=== PATIENT | female | born 1950 | race Asian ===

== ENCOUNTER 2016-05-08 09:37 | Emergency (ER) | payer MEDICARE, OTHER ==
[~2016-05-08] VITALS: Ht 157.5 cm; Wt 67.1 kg
[~2016-05-08 09:37] MED LIST: DOCU-144 PO; FOLI-49 PO; ISON300T72 PO; LANT3I SC; LEVO250T35 PO; MAGN400T27 PO; MULT1TAB13 PO; NOVO3I SC; PRED5 PO; PYRI50TA80 PO; TACR1CAP PO; TRAM50TA2 PO; VALC450 PO
[2016-05-08 09:47] VITALS: Ht 157.5 cm; Wt 67.1 kg
[2016-05-08] MEDS ORDERED: GUAI-637 PO (11:55)
[2016-05-08] MEDS ORDERED: SODI126M NASAL (11:55)
--- NOTE | 2016-05-08 16:00 | ERD ---
ER Documentation Chief Complaint Date/Time DATE: 05/08/16 TIME: 15:57 Chief Complaint flu today HPI Well-appearing 65-year-old female complaining of cough and runny nose since this morning. Patient stated the cough is slightly productive, with clear sputum occasionally with small streak of blood. She also has occasional bloody nose. Denies fever or chills. Denies shortness of breath. Denies generalized weakness. ROS All systems reviewed and are negative except as per history of present illness. Medications Home Meds Active Scripts Guaifenesin* (Robitussin*) 100 Mg/5 Ml Syrup, 200 MG PO Q6H Y for COUGH, #120 ML Prov:CHETAN SRIVASTAVA. PORCELAIN TECHNICIAN 05/08/16 Sodium Chloride (Saline Nasal Mist) 126 Ml Mist, 2 SPRAY NASAL Q2H Y for NASAL CONGESTION, #1 BOTTLE Prov:CHETAN SRIVASTAVA. PORCELAIN TECHNICIAN 05/08/16 Levofloxacin* (Levaquin*) 250 Mg Tablet, 250 MG PO DAILY for 7 Days, TAB Prov:ANA CRISTINA LIVE PORCELAIN TECHNICIAN 06/20/14 Reported Medications Insulin Glargine* (Lantus*) 100 Unit/Ml Soln, 5 UNIT SC HS, EA 06/19/14 Insulin Aspart* (Novolog Insulin Pen*) 100 Unit/Ml Soln, 0 SC .SLIDING SCALE AC , EA 06/19/14 Tramadol HCl (Tramadol HCl) 50 Mg Tab, 50 MG PO Q6H Y for PAIN, TAB 06/19/14 Docusate Sodium* (Colace*) 100 Mg Capsule, 100 MG PO BID, CAP 06/19/14 Multivitamins/Minerals* (Multivitamin w/Minerals*) 1 Tab Tablet, 1 TAB PO DAILY , TAB 06/19/14 Magnesium Oxide* (Mag-Oxide*) 400 Mg Tablet, 800 MG PO BID, TAB 06/19/14 Folic Acid* (Folic Acid*) 1 Mg Tablet, 1 MG PO DAILY, TAB 06/19/14 Pyridoxine Hcl (Vitamin B6) 50 Mg Tab, 50 MG PO DAILY, TAB 06/19/14 Isoniazid* (Isoniazid*) 300 Mg Tablet, 300 MG PO DAILY, TAB 06/19/14 Valganciclovir* (Valcyte*) 450 Mg Tablet, 450 MG PO DAILY, TAB 06/19/14 Prednisone* (Prednisone*) 5 Mg Tab, 5 MG PO DAILY, TAB 06/19/14 Tacrolimus* (Tacrolimus*) 1 Mg Capsule, 1 MG PO Q12, CAP 06/19/14 Allergies Allergies: Coded Allergies: No Known Allergy (Unverified , 05/08/16) PMhx/Soc History of Surgery: Yes (kidney transplant Sep 2013) Hx Neurological Disorder: No Hx Respiratory Disorders: No Hx Cardiac Disorders: Yes (H/O HTN) Hx Psychiatric Problems: No Hx Miscellaneous Medical Probl: Yes (HTN) Hx Alcohol Use: No Hx Substance Use: No Hx Tobacco Use: No Smoking Status: Never smoker Physical Exam Vitals Vital Signs Date Time Temp Pulse Resp B/P Pulse Ox O2 Delivery O2 Flow Rate FiO2 05/08/16 09:47 98.1 99 20 150/81 99 Physical Exam General impression: Well-developed, well-nourished. Alert, oriented, in no acute distress Head: Normocephalic, atraumatic. Eyes: PERRL, EOM normal. Conjunctiva not injected. ENT: Nasal mucosa erythematous and swollen, no active epistaxis. Oral mucosa and oropharynx are normal. Neck: Supple, nontender. No lymphadenopathy. No nuchal rigidity. Respiration: Normal respiratory effort. Lungs clear to auscultate bilaterally. No wheezes, rales or rhonchi. Cardiovascular: Regular rate and rhythm. No murmurs or extra heart sounds. Neuro: Mental status normal, speech normal. CLINICAL ASST grossly intact. Skin: Normal turgor. No rash or lesions. Psych: Normal mood and affect. Procedures/MDM Patient is afebrile, in no respiratory distress. Lungs are clear to auscultate. I doubt that patient has pneumonia or bronchitis. Likely patient's symptoms are result of viral upper respiratory infection. Patient has history of hypertension, her blood pressure today is 150/81, elevated. Advised patient to take medication as prescribed, and follow-up with her PCP for blood pressure monitoring and management. Patient appears well, stable for discharge and outpatient management. Medical decision making shared with patient and family. Education provided to patient and family. Patient and family expressed understanding of the plan. Medications on discharge: Saline nasal spray, Robitussin. Follow-up: Primary care provider in 2-3 days or return to ED if worse. Departure Diagnosis: Primary Impression: Upper respiratory infection Condition: CHETAN Costello NP May 08, 2016 16:00
== END 2016-05-08 12:13 | disposition home or self-care (01) ==
LOC: FTE 09:37
DX: J06.9 Acute upper respiratory infection, unspecified (principal); I12.9 Hypertensive chronic kidney disease with stage 1 through stage 4 chronic kidney disease, or unspecified chronic kidney disease; N18.9 Chronic kidney disease, unspecified; Z79.4 Long term (current) use of insulin
CPT/HCPCS: 99283

== ENCOUNTER 2016-12-30 15:37 | Emergency (ER) | payer MEDICARE, OTHER ==
[~2016-12-30] VITALS: Ht 157.5 cm; Wt 67.0 kg
[~2016-12-30 15:37] MED LIST changes: +GUAI-637 PO; -PRED5 PO; +PRED5TAB PO; +SODI126M NASAL
[2016-12-30] MEDS ORDERED: SOD CHLORIDE 0.9% 500 ML IV STA (15:49)
[2016-12-30] MEDS ORDERED: morphine 2 MG INJ IV STA (15:49)
[2016-12-30 15:53] VITALS: Ht 157.5 cm; Wt 67.0 kg
--- NOTE | 2016-12-30 17:25 | ERD ---
ER Documentation Chief Complaint Chief Complaint BIB EMS for chronic R thigh pain HPI This 66-year-old female was brought in by ambulance for chronic bilateral leg pain in the hips knees and calves shins. Also complains of dizziness described as a lightheadedness. There is a language barrier with the patient currently and our language service iPad is not currently functioning. Most of the history is taken from paramedics from the son. The patient also speaks some Amharic and is able to indicate the locations of her pain. ROS Unobtainable. Medications Home Meds Active Scripts Guaifenesin* (Robitussin*) 100 Mg/5 Ml Syrup, 200 MG PO Q6H Y for COUGH, #120 ML Prov:CHETAN SRIVASTAVA. NURSING CLINICAL DIRECTOR 05/08/16 Sodium Chloride (Saline Nasal Mist) 126 Ml Mist, 2 SPRAY NASAL Q2H Y for NASAL CONGESTION, #1 BOTTLE Prov:CHETAN SRIVASTAVA. NURSING CLINICAL DIRECTOR 05/08/16 Levofloxacin* (Levaquin*) 250 Mg Tablet, 250 MG PO DAILY for 7 Days, TAB Prov:ANA CRISTINA LIVE NURSING CLINICAL DIRECTOR 06/20/14 Reported Medications Insulin Glargine* (Lantus*) 100 Unit/Ml Soln, 5 UNIT SC HS, EA 06/19/14 Insulin Aspart* (Novolog Insulin Pen*) 100 Unit/Ml Soln, 0 SC .SLIDING SCALE AC , EA 06/19/14 Tramadol HCl (Tramadol HCl) 50 Mg Tab, 50 MG PO Q6H Y for PAIN, TAB 06/19/14 Docusate Sodium* (Colace*) 100 Mg Capsule, 100 MG PO BID, CAP 06/19/14 Multivitamins/Minerals* (Multivitamin w/Minerals*) 1 Tab Tablet, 1 TAB PO DAILY , TAB 06/19/14 Magnesium Oxide* (Mag-Oxide*) 400 Mg Tablet, 800 MG PO BID, TAB 06/19/14 Folic Acid* (Folic Acid*) 1 Mg Tablet, 1 MG PO DAILY, TAB 06/19/14 Pyridoxine Hcl (Vitamin B6) 50 Mg Tab, 50 MG PO DAILY, TAB 06/19/14 Isoniazid* (Isoniazid*) 300 Mg Tablet, 300 MG PO DAILY, TAB 06/19/14 Valganciclovir* (Valcyte*) 450 Mg Tablet, 450 MG PO DAILY, TAB 06/19/14 Prednisone* (Prednisone*) 5 Mg Tab, 5 MG PO DAILY, TAB 06/19/14 Tacrolimus* (Tacrolimus*) 1 Mg Capsule, 1 MG PO Q12, CAP 06/19/14 Allergies Allergies: Coded Allergies: No Known Allergy (Unverified , 05/08/16) PMhx/Soc History of Surgery: Yes (kidney transplant Sep 2013) Hx Neurological Disorder: No Hx Respiratory Disorders: No Hx Cardiac Disorders: Yes (H/O HTN) Hx Psychiatric Problems: No Hx Miscellaneous Medical Probl: Yes (HTN) Hx Alcohol Use: No Hx Substance Use: No Hx Tobacco Use: No Smoking Status: Never smoker Physical Exam Vitals Vital Signs Date Time Temp Pulse Resp B/P Pulse Ox O2 Delivery O2 Flow Rate FiO2 12/30/16 15:53 97.8 80 19 184/78 98 Physical Exam Const: [] No distress Head: Atraumatic Eyes: Normal Conjunctiva ENT: Normal External Ears, Nose and Mouth. Neck: Full range of motion..~ No meningismus. Resp: Clear to auscultation bilaterally Cardio: Regular rate and rhythm, no murmurs Abd: Soft, non tender, non distended. Normal bowel sounds Skin: No petechiae or rashes Ext: No cyanosis, or edema Neur: Awake and alert oriented 3, no focal deficits, normal gait Psych: Normal Mood and Affect Results 24 hrs Current Medications Medications (Trade) Dose Ordered Sig/Mani Route PRN Reason Start Time Stop Time Status Last Admin Dose Admin Sodium Chloride (NS) 500 ml @ 500 mls/hr Q1H STAT IV 12/30/16 15:49 12/30/16 16:48 DC 12/30/16 16:12 Morphine Sulfate (morphine) 2 mg ONCE STAT IV 12/30/16 15:49 12/30/16 15:52 DC 12/30/16 16:12 Procedures/MDM EKG interpretation: Normal sinus rhythm rate of 73, very mild T-wave inversions in leads V3 and V4, concerning for possible anterior ischemia versus lead placement, normal intervals, normal axis. Dizziness and chronic leg pain with stable vital signs. Son did arrive. He has had most of her care at [facility] in the right no nurse there. She has stable vital signs I have canceled the orders that had not been completed yet and will allow her to go with her son in stable condition. Discharging with instructions to go directly to [facility] for further workup. Departure Diagnosis: Primary Impression: Chronic leg pain Additional Impression: Dizziness Patient Instructions: Chronic Pain, Dizziness, Unk Cause Additional Instructions: Call your primary care doctor TOMORROW for an appointment during the next 2-3 days.See the doctor sooner or return here if your condition worsens before your appointment time. PHIL CONNELLY DO Dec 30, 2016 17:24
[2016-12-31] MEDS ORDERED: LOSA1TAB19 PO (01:34)
[2016-12-31] MEDS ORDERED: LATA2.5D9 BOTH EYES (01:34)
[2016-12-31] MEDS ORDERED: LYR75 PO (01:34)
[2016-12-31] MEDS ORDERED: DORZ10DR6 BOTH EYES (01:41)
== END 2016-12-30 17:33 | disposition home or self-care (01) ==
LOC: E/R 15:37
DX: M79.605 Pain in left leg (principal); M79.604 Pain in right leg; R42 Dizziness and giddiness; I10 Essential (primary) hypertension; Z79.4 Long term (current) use of insulin
CPT/HCPCS: 93005; 96374; 99284; J2270; J7040

== ENCOUNTER 2016-12-30 18:19 | Observation (INO) | payer MEDICARE, OTHER ==
[~2016-12-30] VITALS: Ht 144.8 cm; Wt 60.9 kg
[2016-12-30 22:07] LABS: ABNORMAL IP MESSAGE 1; HEMATOCRIT 28.8 % (37.0-47.0); MEAN CORPUSCULAR HEMOGLOBIN 33.4 pg (29.0-33.0); MEAN CORPUSCULAR HGB CONC 34.7 g/dl (32.0-37.0); MEAN CORPUSCULAR VOLUME 96.3 fl (82.0-101.0); MEAN PLATELET VOLUME 10.5 fl (7.4-10.4); PLATELET COUNT 88 10^3/UL (140-415); RED BLOOD COUNT 2.99 10^6/ul (4.20-5.40); WHITE BLOOD COUNT 5.3 10^3/ul (4.8-10.8)
[2016-12-30 22:12] LABS: POSITIVE DIFF @See below
--- NOTE | 2016-12-30 22:16 | RADRPT ---
PROCEDURE: CHEST - 1 VIEW CLINICAL INDICATION: 66-year-old female with chest pain and altered mental status. TECHNIQUE: A single frontal AP portable view of the chest was performed. The images were reviewed on a PACS workstation. COMPARISON: CR CHEST 06/19/2014; CR CHEST 02/19/2014; CR CHEST 07/01/2013 FINDINGS: There is a left-sided PICC line present with the tip in the distal superior vena cava. The cardiomed iastinal silhouette is mildly enlarged. Chronic lung changes are present. There is linear scarring a gain identified within the left upper lobe. There is mild bibasilar subsegmental atelectasis and/or scarring. There is no evidence for focal consolidation. There is no evidence for congestive heart failure. There is no evidence for pneumothorax. The osseous structures are intact. IMPRESSION: 1. Left-sided PICC line with the tip in the distal superior vena cava. 2. Mild cardiomegaly. 3. Chronic lung changes. 4. Linear scarring left upper lobe. 5. Mild bibasilar subsegmental atelectasis and/or scarring. .Jabier Perez MD, Date Time Electronically viewed and signed by .Jabier Perez MD, on 12/30/2016 22:16 .M/
[2016-12-30 22:23] LABS: PROTIME 13.2 Sec (12.2-14.2)
[2016-12-30 22:24] LABS: PARTIAL THROMBOPLASTIN TIME 30.3 Sec (25.0-35.0)
[2016-12-30 22:26] LABS: LACTIC ACID 0.9 mmol/L (0.5-2.0)
[2016-12-30 22:28] LABS: ALANINE AMINOTRANSFERASE 28 IU/L (13-69); ALBUMIN 4.1 g/dl (3.3-4.9); ALBUMIN/GLOBULIN RATIO 1.46; ALKALINE PHOSPHATASE 56 IU/L (42-121); ANION GAP 12 (8-16); ASPARTATE AMINO TRANSFERASE 23 IU/L (15-46); BILIRUBIN,INDIRECT 0.3 mg/dl (0-1.1); BILIRUBIN,TOTAL 0.3 mg/dl (0.2-1.3); BLOOD UREA NITROGEN 23 mg/dl (7-20); CALCIUM 8.9 mg/dl (8.4-10.2); CARBON DIOXIDE 29 mmol/L (21-31); CHLORIDE 95 mmol/L (97-110); CREATININE 1.03 mg/dl (0.44-1.00); GLUCOSE 126 mg/dl (70-220); POTASSIUM 4.4 mmol/L (3.5-5.1); SODIUM 132 mmol/L (135-144); TOTAL PROTEIN 6.9 g/dl (6.1-8.1)
[2016-12-30 22:32] LABS: ACETAMINOPHEN < 10.0 ug/ml (10.0-30.0); AMMONIA < 9 umol/l (9-30); ETHANOL < 10.0 mg/dl; SALICYLATE < 1.0 mg/dl (5.0-30.0)
[2016-12-30 22:38] LABS: TROPONIN-I 0.015 ng/ml (0.00-0.12)
--- NOTE | 2016-12-30 22:38 | RADRPT ---
PROCEDURE: CT head without contrast. CLINICAL INDICATION: Altered mental status. TECHNIQUE: Multiple contiguous axial images were obtained from the base of the skull to the vertex without administration of intravenous contrast. Coronal and sagittal reformats were obtained. The total exam CTDI equals 45 mGy and the total exam DLP equals 720 mGy-cm. DICOM images are available . One or more of the following dose reduction techniques were utilized: - Automated exposure control - Adjustment of the mA and/or kV according to patient size - Use of iterative reconstruction technique COMPARISON: CT head dated November 17, 2012. FINDINGS: The ventricles, basal cisterns and sulcal pattern are prominent and consistent with parenchymal volu me loss. There is no acute mass effect, midline shift or hemorrhage. No extra-axial fluid collecti ons are identified. Diminished attenuation in the subcortical and periventricular white matter is compatible with chroni c microvascular ischemic changes. More focal hypoattenuation in the left basal ganglia is consistent with a chronic infarct. The bones of the calvarium are intact. There is opacification of the partially visualized right max illary sinus. The remaining paranasal sinuses and bilateral mastoid complexes are grossly within nor mal limits. IMPRESSION: 1. No acute intracranial pathology. 2. Mild chronic microvascular ischemic changes. 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 RPTAT:AAJJ Physician Frances Date Time Electronically viewed and signed by Physician Frances on 12/30/2016 22:37 QL/
[2016-12-30 23:10] LABS: BASOPHILS % (M) 2 % (0-2); EOSINOPHILS % (M) 6 % (0-7); MONOCYTES % (M) 8 % (0-11); PLATELET ESTIMATE DECREASED
[2016-12-30 23:17] LABS: ADD UMIC NO; UR ASCORBIC ACID 20 mg/dL (NEGATIVE); UR BILIRUBIN (Dip) NEGATIVE (NEGATIVE); UR BLOOD (Dip) NEGATIVE (NEGATIVE); UR CLARITY CLEAR (CLEAR); UR COLOR STRAW (YELLOW); UR GLUCOSE (Dip) NEGATIVE (NEGATIVE); UR KETONES (Dip) NEGATIVE (NEGATIVE); UR LEUKOCYTE ESTERASE (Dip) NEGATIVE Leu/ul (NEGATIVE); UR NITRITE (Dip) NEGATIVE (NEGATIVE); UR SPECIFIC GRAVITY (Dip) 1.005 (1.003-1.030); UR TOTAL PROTEIN (Dip) NEGATIVE (NEGATIVE); UR UROBILINOGEN (Dip) NEGATIVE (NEGATIVE)
--- NOTE | 2016-12-30 23:17 | ERD ---
ER Documentation Chief Complaint Chief Complaint Dizziness, leg twitching, and increased confusion HPI This is a very pleasant 66-year-old female comes in with complaints of dizziness , decreased mental status per family and increased confusion over the past 24 hours. She was seen here earlier today but the son wanted to take her home and take her to [facility]. He contacted he was seen he was recommended the patient be brought back to [facility]. Patient is on PICC line to therapy for recurrent UTI currently. Patient is limited history as history is provided per son ROS All systems reviewed and are negative except as per history of present illness. Medications Home Meds Active Scripts Guaifenesin* (Robitussin*) 100 Mg/5 Ml Syrup, 200 MG PO Q6H Y for COUGH, #120 ML Prov:CHETAN SRIVASTAVA. STRUCTURAL STEEL EQUIPMENT ERECTOR 05/08/16 Sodium Chloride (Saline Nasal Mist) 126 Ml Mist, 2 SPRAY NASAL Q2H Y for NASAL CONGESTION, #1 BOTTLE Prov:CHETAN SRIVASTAVA. STRUCTURAL STEEL EQUIPMENT ERECTOR 05/08/16 Levofloxacin* (Levaquin*) 250 Mg Tablet, 250 MG PO DAILY for 7 Days, TAB Prov:ANA CRISTINA LIVE STRUCTURAL STEEL EQUIPMENT ERECTOR 06/20/14 Reported Medications Insulin Glargine* (Lantus*) 100 Unit/Ml Soln, 5 UNIT SC HS, EA 06/19/14 Insulin Aspart* (Novolog Insulin Pen*) 100 Unit/Ml Soln, 0 SC .SLIDING SCALE AC , EA 06/19/14 Tramadol HCl (Tramadol HCl) 50 Mg Tab, 50 MG PO Q6H Y for PAIN, TAB 06/19/14 Docusate Sodium* (Colace*) 100 Mg Capsule, 100 MG PO BID, CAP 06/19/14 Multivitamins/Minerals* (Multivitamin w/Minerals*) 1 Tab Tablet, 1 TAB PO DAILY , TAB 06/19/14 Magnesium Oxide* (Mag-Oxide*) 400 Mg Tablet, 800 MG PO BID, TAB 06/19/14 Folic Acid* (Folic Acid*) 1 Mg Tablet, 1 MG PO DAILY, TAB 06/19/14 Pyridoxine Hcl (Vitamin B6) 50 Mg Tab, 50 MG PO DAILY, TAB 06/19/14 Isoniazid* (Isoniazid*) 300 Mg Tablet, 300 MG PO DAILY, TAB 06/19/14 Valganciclovir* (Valcyte*) 450 Mg Tablet, 450 MG PO DAILY, TAB 5/3/15 Prednisone* (Prednisone*) 5 Mg Tab, 5 MG PO DAILY, TAB 06/19/14 Tacrolimus* (Tacrolimus*) 1 Mg Capsule, 1 MG PO Q12, CAP 06/19/14 Allergies Allergies: Coded Allergies: No Known Allergy (Unverified , 05/08/16) PMhx/Soc History of Surgery: Yes (kidney transplant) Hx Neurological Disorder: No Hx Respiratory Disorders: No Hx Cardiac Disorders: Yes (H/O HTN) Hx Psychiatric Problems: No Hx Miscellaneous Medical Probl: Yes (iddm) Hx Alcohol Use: No Hx Substance Use: No Hx Tobacco Use: No Smoking Status: Never smoker Physical Exam Vitals Vital Signs Date Time Temp Pulse Resp B/P Pulse Ox O2 Delivery O2 Flow Rate FiO2 12/30/16 22:58 63 16 138/74 99 Room Air 12/30/16 22:41 Nasal Cannula 12/30/16 18:38 98.2 74 18 172/85 99 Physical Exam Const: [] Head: Atraumatic Eyes: Normal Conjunctiva ENT: Normal External Ears, Nose and Mouth. Neck: Full range of motion..~ No meningismus. Resp: Clear to auscultation bilaterally Cardio: Regular rate and rhythm, no murmurs Abd: Soft, non tender, non distended. Normal bowel sounds Skin: No petechiae or rashes Back: No midline or flank tenderness Ext: No cyanosis, or edema Neur: Awake and alert Psych: Normal Mood and Affect Result Diagram: 12/30/16214912/30/162149 Results 24 hrs Laboratory Tests Test 12/30/16 21:50 12/30/16 23:07 White Blood Count 5.310^3/ul Red Blood Count 2.9910^6/ul Hemoglobin 10.0g/dl Hematocrit 28.8% Mean Corpuscular Volume 96.3fl Mean Corpuscular Hemoglobin 33.4pg Mean Corpuscular Hemoglobin Concent 34.7g/dl Red Cell Distribution Width 12.0% Platelet Count 8810^3/UL Mean Platelet Volume 10.5fl Neutrophils % % Segmented Neutrophils % (Manual) 79% Lymphocytes % % Lymphocytes % (Manual) 6% Monocytes % % Monocytes % (Manual) 8% Eosinophils % % Eosinophils % (Manual) 6% Basophils % % Basophils % (Manual) 2% Nucleated Red Blood Cells % 0.0/100WBC Neutrophils # 10^3/ul Absolute Lymphocytes (Manual) 0.310^3/ul Lymphocytes # 10^3/ul Monocytes # 10^3/ul Absolute Monocytes (Manual) 0.410^3/ul Eosinophils # 10^3/ul Basophils # 10^3/ul Basophils # (Manual) 0.110^3/ul Nucleated Red Blood Cells # 10^3/ul Platelet Estimate DECREASED Macrocytosis 1+ Prothrombin Time 13.2Sec Prothrombin Time Ratio 1.0 INR International Normalized Ratio 1.00 Activated Partial Thromboplast Time 30.3Sec Sodium Level 132mmol/L Potassium Level 4.4mmol/L Chloride Level 95mmol/L Carbon Dioxide Level 29mmol/L Anion Gap 12 Blood Urea Nitrogen 23mg/dl Creatinine 1.03mg/dl Glucose Level 126mg/dl Lactic Acid Level 0.9mmol/L Calcium Level 8.9mg/dl Total Bilirubin 0.3mg/dl Direct Bilirubin 0.00mg/dl Indirect Bilirubin 0.3mg/dl Aspartate Amino Transf (AST/SGOT) 23IU/L Alanine Aminotransferase (ALT/SGPT) 28IU/L Alkaline Phosphatase 56IU/L Ammonia < 9umol/l Troponin I 0.015ng/ml Total Protein 6.9g/dl Albumin 4.1g/dl Globulin 2.80g/dl Albumin/Globulin Ratio 1.46 Salicylates Level < 1.0mg/dl Acetaminophen Level < 10.0ug/ml Ethyl Alcohol Level < 10.0mg/dl Bedside Glucose 103mg/dL Procedures/MDM EKG: Rate/Rhythm: [Normal Sinus Rhythm] QRS, ST, T-waves: [No changes consistent w/ acute ischemia] Impression: [No evidence of ischemia or arrhythmia] Chest X-ray 1V Interpreted by me: Soft Tissue: No acute abnormalities Bones: No acute abnormalities Mediastinum/Cardiac Silhouette/Lungs: [No acute abnormalities] Medical decision-makin-year-old female with alteration in mental status likely secondary to worsening mental function due to a urinary tract infection. At this point clinically stable. No evidence of hepatic encephalopathy. CT negative. Patient will be admitted to Dr. Carias to telemetry observation status Departure Diagnosis: Primary Impression: Acute encephalopathy Condition: Serious FRANCISCO JAVIER GALINDO Dec 30, 2016 23:17
[2016-12-30 23:35] LABS: BARBITURATES Negative (NEGATIVE); BENZODIAZEPINES Negative (NEGATIVE); CANNABINOIDS Negative (NEGATIVE); COCAINE Negative (NEGATIVE); OPIATES Positive (NEGATIVE)
[2016-12-31] MEDS ORDERED: SOD CHLORIDE 0.9% 1,000 ML IV SCH (01:03)
[2016-12-31] MEDS ORDERED: BISACODYL (EC) 5 MG TAB PO PRN (01:30)
[2016-12-31] MEDS ORDERED: ONDANSETRON 4 MG INJ IV PRN (01:30)
[2016-12-31] MEDS ORDERED: DOCUSATE SODIUM 100 MG CAP PO PRN (01:30)
[2016-12-31] MEDS ORDERED: ACETAMINOPHEN 325 MG TAB PO PRN (01:30)
[2016-12-31] MEDS ORDERED: NACL 0.9% 3 ML SYG IV SCH (01:30)
[2016-12-31] MEDS ORDERED: LATA2.5D9 BOTH EYES (01:34)
[2016-12-31] MEDS ORDERED: LOSA1TAB19 PO (01:34)
[2016-12-31] MEDS ORDERED: LYR75 PO (01:34)
[2016-12-31] MEDS ORDERED: DORZ10DR6 BOTH EYES (01:41)
[2016-12-31] MEDS ORDERED: ACCU-CHEK XX SCH (02:00)
[2016-12-31] MEDS ORDERED: SOD CHLORIDE 0.9% 500 ML IV ONE (04:00)
[2016-12-31 07:31] VITALS: TEMP 97.9
[2016-12-31 07:36] LABS: FOLATE > 20.0 ng/ml (2.8-20.0)
[2016-12-31 07:47] VITALS: BP 131/68; PULSE 66; RESP 18
[2016-12-31] MEDS: INSULIN ASPART [NOVOLOG] 3 ML PEN SC SCH ×3 (08:13→16:57)
[2016-12-31 08:15] VITALS: Ht 144.8 cm; Wt 60.9 kg
[2016-12-31] MEDS ORDERED: LOSARTAN 50 MG TAB PO SCH (09:00)
[2016-12-31] MEDS ORDERED: PREGABALIN 75 MG CAP PO SCH (09:00)
[2016-12-31] MEDS ORDERED: DORZOLAMIDE/TIMOLOL 10 ML OPH BOTH EYES SCH (09:00)
[2016-12-31] MEDS ORDERED: FOLIC ACID 1 MG TAB PO SCH (09:00)
[2016-12-31] MEDS ORDERED: HYDROCHLOROTHIAZIDE 12.5 MG CAP PO SCH (09:00)
[2016-12-31] MEDS ORDERED: predniSONE 5 MG TAB PO SCH (09:00)
[2016-12-31] MEDS ORDERED: TACROLIMUS 1 MG CAP PO SCH (09:00)
[2016-12-31] MEDS ORDERED: HYDROCODONE/APAP (5/325) TAB ONE (09:23)
[2016-12-31] MEDS ORDERED: HYDROCODONE/APAP (5/325) TAB PO ONE (09:30)
[2016-12-31 11:28] VITALS: BP 104/55; PULSE 74; RESP 17
[2016-12-31 12:00] VITALS: PULSE 83
--- NOTE | 2016-12-31 15:58 | HP ---
Date/Time of Note Date/Time of Note DATE: 12/31/16 TIME: 15:56 Assessment/Plan VTE Prophylaxis VTE Prophylaxis Intervention: SCD's Lines/Catheters IV Catheter Type (from Nrsg): PICC Line Central line still needed: No Urinary Cath still in place: No Assessment/Plan Assessment/Plan 66 yo F with ESRD sp renal transplant admitted for AMS in setting of abx. AMS resolved with cessation of abx. suspect acute toxic encephalopathy from ceftriaxone PLAN cont to hold abx XR R hip per patient request cont all other home meds if negative, will dc as has PCP appt in 2 days dw pt and son HPI/ROS Admit Date/Time Admit Date/Time Dec 30, 2016 at 23:16 Hx of Present Illness CC alerted mental status HPI 66 yo F with h/o ESRD sp renal transplant recurrent UTIs brought in by family for altered mental status. Pt is 5 days into a 10 day course of Ceftriaxone rx' ed by a urologist at [facility] for recurrent UTIs. Per son, yesterday pt was hallucinating and tremulous. Ceftriaxone stopped in the ER. When I saw pt this morning she was alert, oriented to person, place and time and pt and son state her mental status is back to baseline. Pt also reports longstanding R hip pain for which she is requesting an xray No fevers/chills. No abd pain. PMH/Family/Social Social History lives in the community Smoking Status: Never smoker Exam/Review of Systems Vital Signs Vitals Vital Signs Date Time Temp Pulse Resp B/P Pulse Ox O2 Delivery O2 Flow Rate FiO2 12/31/16 12:00 83 12/31/16 11:28 98.0 17 104/55 99 Room Air Exam Exam EOMI MMM alert, oriented to person, place, and time nad no mrg abd soft no rashes no edema moves exts freely sensorium grossly intact labs.imaging reviewed Labs Result Diagram: 12/30/16214912/30/162149 Medications Medications Current Medications Ondansetron HCl (Zofran Inj) 4 mg Q6H PRN IV NAUSEA AND/OR VOMITING; Start at 01:30 Acetaminophen (Tylenol Tab) 650 mg Q6H PRN PO PAIN LEVEL 1-3 OR FEVER; Start 12/31/16 at 01:30 Docusate Sodium (Colace) 100 mg Q12H PRN PO CONSTIPATION; Start 12/31/16 at 01 :30 Bisacodyl (Dulcolax) 5 mg DAILY PRN PO CONSTIPATION Last administered on 09:36; Admin Dose 5 MG; Start 12/31/16 at 01:30 Diagnostic Test (Pha) (Accu-Chek) 1 ea 02 XX ; Start 12/31/16 at 02:00 Insulin Aspart (Novolog Insulin Pen) NOVOLOG *MILD* ALGORI... Q4 SC Last administered on 12/31/16 12:26; Admin Dose 1 UNIT; Start 12/31/16 at 05:00 Dorzolamide/ Timolol (Cosopt) 1 drop BID BOTH EYES Last administered on 10:35; Admin Dose 1 DROP; Start 12/31/16 at 09:00 Folic Acid (Folic Acid) 1 mg DAILY PO Last administered on 12/31/16 09:36; Admin Dose 1 MG; Start 12/31/16 at 09:00 Insulin Glargine (Lantus) 5 unit HS SC ; Start 12/31/16 at 21:00 Latanoprost (Xalatan) 1 drop QHS BOTH EYES ; Start 12/31/16 at 21:00 Prednisone (Prednisone) 5 mg DAILY PO Last administered on 12/31/16 10:34; Admin Dose 5 MG; Start 12/31/16 at 09:00 Pregabalin (Lyrica) 75 mg BID PO Last administered on 12/31/16 10:34; Admin Dose 75 MG; Start 12/31/16 at 09:00 Tacrolimus (Prograf) 1 mg Q12 PO Last administered on 12/31/16 09:36; Admin Dose 1 MG; Start 12/31/16 at 09:00 Losartan Potassium (Cozaar) 50 mg DAILY PO Last administered on 12/31/16 09: 36; Admin Dose 50 MG; Start 12/31/16 at 09:00 Hydrochlorothiazide (Hydrochlorothiazide) 12.5 mg DAILY PO Last administered on 12/31/16 09:37; Admin Dose 12.5 MG; Start 12/31/16 at 09:00 RUTH OCONNOR MD Dec 31, 2016 15:58
[2016-12-31 16:00] VITALS: PULSE 69
[2016-12-31 16:18] VITALS: BP 119/62; PULSE 67; RESP 17
--- NOTE | 2016-12-31 17:14 | RADRPT ---
PROCEDURE: XR Pelvis. CLINICAL INDICATION: Pelvic pain. TECHNIQUE: Single AP view of the pelvis. COMPARISON: No prior studies are available for comparison. FINDINGS: There is no fracture or dislocation. There is no lytic or blastic lesion. Articular surfaces are intact. There is diffuse osteopenia. Surgical clips are present in the right side of the pelvis. IMPRESSION: 1. Surgical clips in the right side of the pelvis. 2. Diffuse osteopenia. 3. Otherwise unremarkable study. RPTAT: QQ .Jaya Hernandez MD, MD Date Time Electronically viewed and signed by .Jaya Hernandez MD, MD on 12/31/2016 17:14 .R/
--- NOTE | 2016-12-31 17:15 | RADRPT ---
PROCEDURE: XR Right Hip. CLINICAL INDICATION: Right hip pain. TECHNIQUE: Two views. Frontal and lateral. COMPARISON: No prior studies are available for comparison. FINDINGS: There is no fracture or dislocation. The soft tissues are normal. Articular surfaces are intact. There is no lytic or blastic lesion. Surgical clips are present in the right side of the pelvis. IMPRESSION: 1. Surgical clips in the right side of the pelvis. 2. Otherwise unremarkable images of the right hip. RPTAT: QQ .Jaya Hernandez MD, MD Date Time Electronically viewed and signed by .Jaya Hernandez MD, on 12/31/2016 17:14 .R/
--- NOTE | 2016-12-31 17:15 | RADRPT ---
PROCEDURE: XR Right Femur. CLINICAL INDICATION: Trauma due to a fall. Right leg pain. TECHNIQUE: AP and lateral views of the right femur were performed. COMPARISON: None. FINDINGS: There is no fracture or dislocation. The soft tissues are normal. Articular surfaces are intact. There is no lytic or blastic lesion. Surgical clips are present in the right side of the pelvis. IMPRESSION: 1. Surgical clips in the right side of the pelvis. 2. Otherwise unremarkable images of the right femur. RPTAT: QQ .Jaya Hernandez MD, MD Date Time Electronically viewed and signed by .Jaya Hernandez MD, on 12/31/2016 17:15 .R/
--- NOTE | 2016-12-31 17:16 | RADRPT ---
PROCEDURE: XR Left Hip. CLINICAL INDICATION: Trauma due to a fall. Left hip pain. TECHNIQUE: Two views. Frontal and lateral. COMPARISON: No prior studies are available for comparison. FINDINGS: There is no fracture or dislocation. The soft tissues are normal. Articular surfaces are intact. There is no lytic or blastic lesion. There is no radiopaque foreign body. IMPRESSION: 1. Normal images of the left hip. RPTAT: QQ .Jaya Hernandez MD, MD Date Time Electronically viewed and signed by .Jaya Hernandez MD, on 12/31/2016 17:15 .R/
--- NOTE | 2016-12-31 17:16 | RADRPT ---
PROCEDURE: XR Femur. CLINICAL INDICATION: Trauma due to a fall. Left leg pain. TECHNIQUE: AP and lateral views of the left femur were performed. COMPARISON: None. FINDINGS: There is no fracture or dislocation. The soft tissues are normal. Articular surfaces are intact. There is no lytic or blastic lesion. There is no radiopaque foreign body. IMPRESSION: 1. Normal images of the left femur. RPTAT: QQ .Jaya Hernandez MD, MD Date Time Electronically viewed and signed by .Jaya Hernandez MD, on 12/31/2016 17:15 .R/
--- NOTE | 2016-12-31 17:46 | DS ---
Date/Time of Note Date/Time of Note DATE: 12/31/16 TIME: 17:44 Discharge Summary Admission/Discharge Info Admit Date/Time Dec 30, 2016 at 23:16 Discharge Date/Time Discharge Diagnosis acute encephalopathy, likely from ceftriaxone RESOLVED Patient Condition: Stable Procedures bl XRs hips, femurs and pelvis: no fracture or lesion Hx of Present Illness CC alerted mental status HPI 66 yo F with h/o ESRD sp renal transplant recurrent UTIs brought in by family for altered mental status. Pt is 5 days into a 10 day course of Ceftriaxone rx' ed by a urologist at [facility] for recurrent UTIs. Per son, yesterday pt was hallucinating and tremulous. Ceftriaxone stopped in the ER. When I saw pt this morning she was alert, oriented to person, place and time and pt and son state her mental status is back to baseline. Pt also reports longstanding R hip pain for which she is requesting an xray No fevers/chills. No abd pain. Hospital Course 66 yo F with ESRD sp renal transplant admitted for AMS in setting of abx. AMS resolved with cessation of abx. suspect acute toxic encephalopathy from ceftriaxone. Mentation returned to baseline. Imaging without fracture. Pt to hold abx until seen by PCP in 2 days. PICC line dc'ed prior to discharge Home Meds Reported Medications Dorzolamide/Timolol* (Dorzolamide/Timolol*) 10 Ml Drops, 1 DROP BOTH EYES BID, # 1 EA 12/31/16 Latanoprost (Xalatan) 2.5 Ml Drops, 1 DROP BOTH EYES QHS, #1 BOTTLE 12/31/16 Losartan-Hydrochlorothiazide (Losartan-HCTZ) 50-12.5 Mg Tab, 1 TAB PO DAILY, TAB 12/31/16 Pregabalin* (Lyrica*) 75 Mg Capsule, 75 MG PO BID, CAP 12/31/16 Insulin Glargine* (Lantus*) 100 Unit/Ml Soln, 5 UNIT SC HS, EA 06/19/14 Insulin Aspart* (Novolog Insulin Pen*) 100 Unit/Ml Soln, 0 SC .SLIDING SCALE AC , EA 06/19/14 Tramadol HCl (Tramadol HCl) 50 Mg Tab, 50 MG PO Q6H Y for PAIN, TAB 06/19/14 Magnesium Oxide* (Mag-Oxide*) 400 Mg Tablet, 800 MG PO BID, TAB 06/19/14 Folic Acid* (Folic Acid*) 1 Mg Tablet, 1 MG PO DAILY, TAB 06/19/14 Prednisone* (Prednisone*) 5 Mg Tab, 5 MG PO DAILY, TAB 06/19/14 Tacrolimus* (Tacrolimus*) 1 Mg Capsule, 1 MG PO Q12, CAP 06/19/14 Discontinued Reported Medications Docusate Sodium* (Colace*) 100 Mg Capsule, 100 MG PO BID, CAP 06/19/14 Multivitamins/Minerals* (Multivitamin w/Minerals*) 1 Tab Tablet, 1 TAB PO DAILY , TAB 06/19/14 Pyridoxine Hcl (Vitamin B6) 50 Mg Tab, 50 MG PO DAILY, TAB 06/19/14 Isoniazid* (Isoniazid*) 300 Mg Tablet, 300 MG PO DAILY, TAB 06/19/14 Valganciclovir* (Valcyte*) 450 Mg Tablet, 450 MG PO DAILY, TAB 06/19/14 Discontinued Scripts Guaifenesin* (Robitussin*) 100 Mg/5 Ml Syrup, 200 MG PO Q6H Y for COUGH, #120 ML Prov:CHETAN SRIVASTAVA. POWER OPERATOR 05/08/16 Sodium Chloride (Saline Nasal Mist) 126 Ml Mist, 2 SPRAY NASAL Q2H Y for NASAL CONGESTION, #1 BOTTLE Prov:CHETAN SRIVASTAVA. POWER OPERATOR 05/08/16 Levofloxacin* (Levaquin*) 250 Mg Tablet, 250 MG PO DAILY for 7 Days, TAB Prov:ANA CRISTINA LIVE POWER OPERATOR 06/20/14 Follow-up Plan PCP in 2 days Primary Care Provider Not On Staff Doctor Time spent on discharge: < 30 minutes Pending Labs Laboratory Tests Test 12/30/16 21:50 12/30/16 22:45 12/30/16 23:07 12/31/16 02:42 White Blood Count 5.310^3/ul (4.8-10.8) Red Blood Count 2.9910^6/ul (4.20-5.40) Hemoglobin 10.0g/dl (12.0-16.0) Hematocrit 28.8% (37.0-47.0) Mean Corpuscular Volume 96.3fl (82.0-101.0) Mean Corpuscular Hemoglobin 33.4pg (29.0-33.0) Mean Corpuscular Hemoglobin Concent 34.7g/dl (32.0-37.0) Red Cell Distribution Width 12.0% (11.5-14.5) Platelet Count 8810^3/UL (140-415) Mean Platelet Volume 10.5fl (7.4-10.4) Neutrophils % % (39.0-77.0) Segmented Neutrophils % (Manual) 79% (39-77) Lymphocytes % % (15.0-51.0) Lymphocytes % (Manual) 6% (15-51) Monocytes % % (0.0-11.0) Monocytes % (Manual) 8% (0-11) Eosinophils % % (0.0-7.0) Eosinophils % (Manual) 6% (0-7) Basophils % % (0.0-2.0) Basophils % (Manual) 2% (0-2) Nucleated Red Blood Cells % 0.0/100WBC (0.0-0.0) Neutrophils # 10^3/ul (1.6-7.5) Absolute Lymphocytes (Manual) 0.310^3/ul (0.8-2.9) Lymphocytes # 10^3/ul (0.8-2.9) Monocytes # 10^3/ul (0.3-0.9) Absolute Monocytes (Manual) 0.410^3/ul (0.3-0.9) Eosinophils # 10^3/ul (0.0-0.5) Basophils # 10^3/ul (0.0-0.1) Basophils # (Manual) 0.110^3/ul (0.0-0.0) Nucleated Red Blood Cells # 10^3/ul (0.0-0.0) Platelet Estimate DECREASED Macrocytosis 1+ (0-0) Prothrombin Time 13.2Sec (12.2-14.2) Prothrombin Time Ratio 1.0 INR International Normalized Ratio 1.00 Activated Partial Thromboplast Time 30.3Sec (25.0-35.0) Sodium Level 132mmol/L (135-144) Potassium Level 4.4mmol/L (3.5-5.1) Chloride Level 95mmol/L (97-110) Carbon Dioxide Level 29mmol/L (21-31) Anion Gap 12 (8-16) Blood Urea Nitrogen 23mg/dl (7-20) Creatinine 1.03mg/dl (0.44-1.00) Glucose Level 126mg/dl (70-220) Lactic Acid Level 0.9mmol/L (0.5-2.0) Calcium Level 8.9mg/dl (8.4-10.2) Total Bilirubin 0.3mg/dl (0.2-1.3) Direct Bilirubin 0.00mg/dl (0.00-0.20) Indirect Bilirubin 0.3mg/dl (0-1.1) Aspartate Amino Transf (AST/SGOT) 23IU/L (15-46) Alanine Aminotransferase (ALT/SGPT) 28IU/L (13-69) Alkaline Phosphatase 56IU/L (42-121) Ammonia < 9umol/l (9-30) Troponin I 0.015ng/ml (0.00-0.12) Total Protein 6.9g/dl (6.1-8.1) Albumin 4.1g/dl (3.3-4.9) Globulin 2.80g/dl (1.3-3.2) Albumin/Globulin Ratio 1.46 Salicylates Level < 1.0mg/dl (5.0-30.0) Acetaminophen Level < 10.0ug/ml (10.0-30.0) Ethyl Alcohol Level < 10.0mg/dl Urine Color STRAW (YELLOW) Urine Clarity CLEAR (CLEAR) Urine pH 7.0 (5.0-9.0) Urine Specific [place] 1.005 (1.003-1.030) Urine Ketones NEGATIVEmg/dL (NEGATIVE) Urine Nitrite NEGATIVEmg/dL (NEGATIVE) Urine Bilirubin NEGATIVEmg/dL (NEGATIVE) Urine Urobilinogen NEGATIVEmg/dL (NEGATIVE) Urine Leukocyte Esterase NEGATIVELeu/ul (NEGATIVE) Urine Hemoglobin NEGATIVEmg/dL (NEGATIVE) Urine Glucose NEGATIVEmg/dL (NEGATIVE) Urine Total Protein NEGATIVEmg/dl (NEGATIVE) Urine Opiates Screen Positive (NEGATIVE) Urine Barbiturates Negative (NEGATIVE) Urine Amphetamines Screen Negative (NEGATIVE) Urine Benzodiazepines Screen Negative (NEGATIVE) Urine Cocaine Screen Negative (NEGATIVE) Urine Cannabinoids Negative (NEGATIVE) Bedside Glucose 103mg/dL (70-220) 96mg/dL (70-220) Test 12/31/16 05:37 12/31/16 08:10 12/31/16 12:21 12/31/16 16:44 Vitamin B12 Level > 1000pg/ml (239-931) Folate > 20.0ng/ml (2.8-20.0) Bedside Glucose 100mg/dL (70-220) 169mg/dL (70-220) 191mg/dL (70-220) RUTH OCONNOR MD Dec 31, 2016 17:46
[2016-12-31] MEDS ORDERED: LATANOPROST 0.005% 2.5 ML OPH BOTH EYES SCH (21:00)
[2016-12-31] MEDS ORDERED: INSULIN GLARGINE [LANtus] 3 ML PEN SC SCH (21:00)
== END 2016-12-31 18:28 | disposition home or self-care (01) ==
LOC: E/R 18:19 → MS3 23:16 → INTOOBSV 23:16
PROVIDERS: ADMIT Family Medicine; ATTEND Family Medicine
DX: G93.40 Encephalopathy, unspecified (principal); N39.0 Urinary tract infection, site not specified; E11.9 Type 2 diabetes mellitus without complications; Z79.4 Long term (current) use of insulin; I10 Essential (primary) hypertension; Z94.0 Kidney transplant status; I67.82 Cerebral ischemia
CPT/HCPCS: 36415; 70450; 71010; 72170; 73510; 73550; 80053; 80306; 80307; 81003; 82140; 82607; 82746; 82962; 83605; 84484; 85025; 85610; 85730; 87086; 93005; 99285; G0378; J1815; J7030; J7040; J7507; J7512; 99217

== ENCOUNTER 2018-06-12 09:17 | Inpatient (IN) | payer MEDICARE, OTHER ==
[~2018-06-12] VITALS: Ht 152.4 cm; Wt 60.3 kg
[~2018-06-12 09:17] MED LIST changes: -DOCU-144 PO; +DORZ10DR6 BOTH EYES; -GUAI-637 PO; -ISON300T72 PO; +LATA2.5D19 BOTH EYES; -LEVO250T35 PO; +LOSA1TAB22 PO; +LYR75 PO; -MULT1TAB13 PO; -PYRI50TA80 PO; -SODI126M NASAL; -VALC450 PO
[2018-06-12] MEDS ORDERED: CEFEPIME 2GM/50 ML (PMX) 50 ML IVPB STA (09:45)
[2018-06-12] MEDS ORDERED: VANCOMYCIN 1 GM (PMX) 250 ML IVPB ONE (10:00)
[2018-06-12] MEDS ORDERED: SIMV10TA PO (10:46)
[2018-06-12] MEDS ORDERED: MYCO250C3 ORAL (10:46)
[2018-06-12] MEDS ORDERED: CELE200C PO (10:46)
[2018-06-12] MEDS ORDERED: ONDANSETRON 4 MG INJ IV PRN ×2 (11:00→15:00)
[2018-06-12] MEDS ORDERED: ACETAMINOPHEN 325 MG TAB PO PRN ×2 (11:00→15:00)
--- NOTE | 2018-06-12 12:45 | ERD ---
ER Documentation Chief Complaint Chief Complaint sob for the past few days. low 02 sats, congestion and cough mod distress HPI Patient is a 67-year-old female with a history of kidney transplant, diabetes, and hypertension who presents with shortness of breath. A video paraprofessional interpreter was used for the entire history and physical exam for Kiswahili translation. The patient has shortness of breath with minimal exertion. She has had cold symptoms for 1 week and reports a cough with sputum. She says that she tried "a water type medicine" as well as a cough drop. She has no fevers. Upon review of old medical records this is the patient's ninth visit to the ER since 2012. ROS All systems reviewed and are negative except as per history of present illness. Medications Home Meds Reported Medications Celecoxib* (Celebrex*) 200 Mg Capsule, 200 MG PO DAILY, CAP 06/12/18 Simvastatin* (Zocor*) 10 Mg Tablet, 10 MG PO QHS, #30 TAB 06/12/18 Mycophenolate Mofetil* (Cellcept*) 250 Mg Capsule, 1 CAP ORAL BID 06/12/18 Dorzolamide/Timolol* (Dorzolamide/Timolol*) 10 Ml Drops, 1 DROP BOTH EYES BID, #1 EA 12/31/16 Latanoprost (Xalatan) 2.5 Ml Drops, 1 DROP BOTH EYES QHS, #1 BOTTLE 12/31/16 Losartan-Hydrochlorothiazide (Losartan-HCTZ) 50-12.5 Mg Tab, 1 TAB PO DAILY, TAB 12/31/16 Insulin Glargine* (Lantus*) 100 Unit/Ml Soln, 0-5 UNIT SC HS, EA PER SLIDING SCALE 06/19/14 Insulin Aspart* (Novolog Insulin Pen*) 100 Unit/Ml Soln, 0 SC .SLIDING SCALE AC, EA 06/19/14 Tramadol HCl (Tramadol HCl) 50 Mg Tab, 50 MG PO Q6H PRN for PAIN, TAB 06/19/14 Magnesium Oxide* (Mag-Oxide*) 400 Mg Tablet, 800 MG PO BID, TAB 06/19/14 Folic Acid* (Folic Acid*) 1 Mg Tablet, 1 MG PO DAILY, TAB 06/19/14 Prednisone* (Prednisone*) 5 Mg Tab, 5 MG PO DAILY, TAB 06/19/14 Tacrolimus* (Tacrolimus*) 1 Mg Capsule, 1 MG PO Q12, CAP 06/19/14 Discontinued Reported Medications Pregabalin* (Lyrica*) 75 Mg Capsule, 75 MG PO BID, CAP 12/31/16 Allergies Allergies: Coded Allergies: No Known Allergy (Unverified , 06/12/18) PMhx/Soc History of Surgery: Yes (kidney trasnplant 3 yrs ago ) Anesthesia Reaction: No Hx Neurological Disorder: No Hx Respiratory Disorders: No Hx Cardiac Disorders: No Hx Psychiatric Problems: No Hx Miscellaneous Medical Probl: No Hx Alcohol Use: No Hx Substance Use: No Hx Tobacco Use: No Smoking Status: Never smoker FmHx Family History: No diabetes Physical Exam Vitals Vital Signs Date Temp Pulse Resp B/P (MAP) Pulse Ox O2 O2 Flow FiO2 Time Delivery Rate 06/12/18 Nasal 10:14 Cannula 06/12/18 Nasal 2 10:14 Cannula 06/12/18 98.5 99 28 150/82 90 09:19 (104) Physical Exam Const: Moderate distress Head: Atraumatic Eyes: Normal Conjunctiva ENT: Normal External Ears, Nose and Mouth. Neck: Full range of motion. No meningismus. Resp: Decreased breath sounds bilaterally Cardio: Regular rate and rhythm, no murmurs Abd: Soft, non tender, non distended. Normal bowel sounds Skin: No petechiae or rashes Back: No midline or flank tenderness Ext: No cyanosis, or edema Neur: Awake and alert Psych: Normal Mood and Affect Result Diagram: 06/12/18 1008 06/12/18 1008 Results 24 hrs Laboratory Tests Test 06/12/18 10:04 06/12/18 10:08 06/12/18 10:09 06/12/18 10:11 Urine Color YELLOW Urine Clarity CLEAR Urine pH 7.0 Urine Specific 1.013 [place] Urine Ketones NEGATIVE mg/dL Urine Nitrite NEGATIVE mg/dL Urine Bilirubin NEGATIVE mg/dL Urine NEGATIVE mg/dL Urobilinogen Urine Leukocyte NEGATIVE [place]/ul Esterase Urine Hemoglobin NEGATIVE mg/dL Urine Glucose NEGATIVE mg/dL Urine Total NEGATIVE mg/dl Protein White Blood Count 6.6 10^3/ul Red Blood Count 3.48 10^6/ul Hemoglobin 11.0 g/dl Hematocrit 33.5 % Mean Corpuscular 96.3 fl Volume Mean Corpuscular 31.6 pg Hemoglobin Mean Corpuscular 32.8 g/dl Hemoglobin Concen t Red Cell 12.6 % Distribution Width Platelet Count 70 10^3/UL Mean Platelet 12.2 fl Volume Immature 0.600 % Granulocytes % Neutrophils % 75.7 % Segmented 62 % Neutrophils % (Manual) Band Neutrophils 12 % % (Manual) Lymphocytes % 9.4 % Lymphocytes % 6 % (Manual) Reactive 8 % Lymphocytes % (Manual) Monocytes % 11.4 % Monocytes % 8 % (Manual) Eosinophils % 2.4 % Eosinophils % 3 % (Manual) Basophils % 0.5 % Basophils % 1 % (Manual) Nucleated Red 0.0 /100WBC Blood Cells % Immature 0.040 10^3/ul Granulocytes # Neutrophils # 5.0 10^3/ul Neutrophils # 4.1 10^3/ul (Manual) Band Neutrophils 0.7 10^3/ul # Lymphocytes 0.3 10^3/ul (Manual) Lymphocytes # 0.6 10^3/ul Reactive 0.5 10^3/ul Lymphocytes # Monocytes # 0.8 10^3/ul Monocytes # 0.5 10^3/ul (Manual) Eosinophils # 0.2 10^3/ul Basophils # 0.0 10^3/ul Basophils # 0.0 10^3/ul (Manual) Nucleated Red 0.0 10^3/ul Blood Cells # Platelet Estimate DECREASED Giant Platelets 1 % Poikilocytosis 2+ Sodium Level 140 mmol/L Potassium Level 4.2 mmol/L Chloride Level 103 mmol/L Carbon Dioxide 27 mmol/L Level Anion Gap 10 Blood Urea 28 mg/dl Nitrogen Creatinine 1.04 mg/dl Est Glomerular 53 mL/min Filtrat Rate mL/min Glucose Level 135 mg/dl Calcium Level 9.1 mg/dl Total Bilirubin 0.6 mg/dl Direct Bilirubin 0.00 mg/dl Indirect 0.6 mg/dl Bilirubin Aspartate Amino 26 IU/L Transf (AST/SGOT) Alanine 16 IU/L Aminotransferase (ALT/SGPT) Alkaline 58 IU/L Phosphatase Troponin I < 0.012 ng/ml Total Protein 6.9 g/dl Albumin 4.3 g/dl Globulin 2.60 g/dl Albumin/Globulin 1.65 Ratio Prothrombin Time 12.3 Sec Prothrombin Time 1.0 Ratio INR International 0.90 Normalized Ratio Activated 33.4 Sec Partial Thrombopl ast Time POC Venous 1.5 mmol/L Lactate Current Medications Medications Dose Sig/Mani Start Time Status Last (Trade) Ordered Route PRN Stop Time Admin Dose Reason Admin Cefepime HCl 50 ml @ ONCE STAT 06/12/18 DC 06/12/18 100 mls/hr IVPB 09:45 10:30 06/12/18 10:14 Vancomycin 250 ml @ ONCE ONCE 06/12/18 DC 06/12/18 HCl 125 mls/hr IVPB 10:00 11:52 06/12/18 11:59 Ondansetron 4 mg ER BRIDGE 06/12/18 HCl (Zofran PRN IV 11:00 Inj) NAUSEA/VOMITI 06/13/18 10:59 NG 650 mg ER BRIDGE 06/12/18 06/12/18 Acetaminophen PRN PO 11:00 11:23 (Tylenol .MILD PAIN 06/13/18 10:59 Tab) 1-3 OR TEMP Procedures/MDM EKG read by me: Rate/Rhythm: Regular rate and rhythm at a normal rate Intervals: Normal Impression: No evidence of ischemia or arrhythmia Chest x-ray read by radiology. Sepsis Documentation: Patient's infectious symptoms have not stabilized and the patient is at risk of rapid decompensation. The patient will be admitted for careful hydration, antibiotic therapy, and infectious source control. SEVERE SEPSIS CRITERIA: Infectious source: Pneumonia End organ damage indicated by: No endorgan damage at this time SEPSIS MANAGEMENT Time of recognition of sepsis: 10:08 AM. Time of recognition of severe sepsis: No severe sepsis at this time. Time of recognition of septic shock: No septic shock at this time. 3 HOUR BUNDLE Blood cultures x 2 before broad-spectrum antibiotics: Yes 30 ml/kg NS bolus completed Initial lactate 1.5 Repeat lactate pending SEPTIC SHOCK ASSESSMENT: No lactic acid > 4.0 No persistent hypotension (SBP < 90 or 40 mmHg drop, MAP < 65) despite 30 mL/kg IV fluid bolus VOLUME REASSESSMENT FOR SEPTIC SHOCK: No septic shock at this time PERSISTENT HYPOTENSION TREATMENT: Comfort care no Central line not Required Vasopressor started not required I considered further perfusion assessment with CVP measurement, SCVO2, bedside ultrasound volume assessment, passive leg raise, trial of further fluid bolus. And proceeded with 30 ml/kg fluid bolus of NSS, broad spectrum antibiotics, and admission. The patient will be admitted to the care of Dr. Wallace from the final team. CRITICAL CARE Critical care time 35 minutes Emergent fluid management while maintaining close respiratory support. Provision of immediate and broad-spectrum antibiotic therapy. Simultaneous assessment for possible sources in order to direct targeted therapy. C onsideration for invasive and chemical support to prevent cardiopulmonary collapse. Critical care time is independent of procedures performed. Departure Diagnosis: Primary Impression: Shortness of breath Additional Impressions: Sepsis Sepsis type: sepsis due to unspecified organism Qualified Codes: A41.9 - Sepsis, unspecified organism Pneumonia Pneumonia type: due to unspecified organism Laterality: unspecified latera lity Lung location: unspecified part of lung Qualified Codes: J18.9 - Pneumonia, unspecified organism Condition: ALYSSA Plummer MD Jun 12, 2018 12:45
[2018-06-12] MEDS ORDERED: morphine 2 MG INJ IV PRN (15:00)
[2018-06-12] MEDS ORDERED: NITROGLYCERIN (SL) 0.4 MG TAB SL PRN (15:00)
[2018-06-12] MEDS ORDERED: DOCUSATE SODIUM 100 MG CAP PO PRN (15:00)
[2018-06-12] MEDS ORDERED: HYDROCODONE/APAP (5/325) TAB PO PRN (15:00)
[2018-06-12] MEDS ORDERED: NACL 0.9% 3 ML SYG IV SCH (15:00)
[2018-06-12] MEDS ORDERED: MAGNESIUM HYDROXIDE 30ML CUP PO PRN (15:00)
--- NOTE | 2018-06-12 16:03 | HP ---
DATE OF ADMISSION: 06/12/2018 CHIEF COMPLAINT: Shortness of breath and cough for 1 week. HISTORY OF PRESENT ILLNESS: A 67-year-old female with past medical history of renal transplant 3 yea rs ago, on immunosuppressive therapy, diabetes, hypertension, who comes in after experiencing shortne ss of breath and cough symptoms. Symptoms have been going on for the last 5 to 6 days. Patient desc ribes the cough as a dry cough. No fevers or chills. No apparent recent travels or sick contacts. No diarrhea or constipation. No upper or lower GI bleeding, no diarrhea, constipation. She tried a "watertight medicine" at home as well as cough trap that did not relieve her symptoms. Shortness of breath also occurs with some exertion as well, minimally. When she arrived today, she had a chest x- ray that surprisingly did not show any focal infiltrates, although there was some unchanged left uppe r lobe scarring noted. She was a little tachycardic when she came in, but afebrile. She did, brodie r, receive broad-spectrum antibiotics in the ER today and now feels slightly better. PAST MEDICAL HISTORY: As above. ALLERGIES: N0 MEDICATIONS AT HOME: 1. Simvastatin 10 mg at bedtime. 2. Losartan/hydrochlorothiazide 50/12.5 one tab daily. 3. Tramadol 50 mg q.6h. p.r.n. 4. Celebrex 200 mg daily. 5. Xalatan drops both eyes at bedtime. 6. Timolol drops both eyes b.i.d. 7. Magnesium oxide p.o. b.i.d. 8. Aspart insulin sliding scale at home. 9. Lantus 0 to 5 units sliding scale at home. 10. Prednisone 5 mg daily. 11. Folic acid 1 mg daily. 12. CellCept 250 mg b.i.d. 13. Tacrolimus 1 mg q.12h. PAST SURGICAL HISTORY: Kidney transplant 3 years ago. SOCIAL HISTORY: Negative for smoking, drinking, or IV drug abuse. FAMILY HISTORY: Noncontributory. PHYSICAL EXAMINATION: VITAL SIGNS: T-max 98.5, pulse 99, respirations 20, blood pressure 150/82, satting at 90 to 92% on 2 liters nasal cannula. GENERAL: The patient is lying in bed, answering questions appropriately. No acute distress. HEENT: Pupils equal, round, reactive to light. Extraocular muscles intact. NECK: Supple, no thyromegaly. LUNGS: Slightly decreased breath sounds bilaterally. CARDIOVASCULAR: S1, S2 heard. No rubs or gallops. ABDOMEN: Soft, nontender, nondistended. Normal bowel sounds. No rebound or guarding. MUSCULOSKELETAL: No lower extremity edema bilaterally. NEUROLOGIC: No focal deficits. LABORATORIES: CBC is normal except platelets are a little low at 70. Basic metabolic panel appears to be normal except the BUN is 28, creatinine is 1.04, and the UA shows negative nitrites, negative l eukocyte esterase, and coags are normal. We mentioned the chest x-ray results. ASSESSMENT AND PLAN: A 67-year-old female coming in with cough and shortness of breath for 1 week wi th signs of possible atypical pneumonia versus other, with a prior history of diabetes, hypertension, kidney transplant 3 years ago. 1. Shortness of breath and cough, possibly secondary to upper respiratory infection/atypical pneumon ia. For now, admit the patient DuoNeb p.r.n. We will put her on low-dose antibiotics. Check TSH, A 1c, lipid panel. Consider PT and OT consults as well. Give her antitussive medicines as well. Low dose IV fluids. 2. Diabetes. Put patient on sliding scale insulin. Follow up A1c. 3. Hypertension. Blood pressure stable. Hold home Losartan, hydrochlorothiazide medication, but co ntinue hydralazine as needed p.r.n. 4. History of kidney transplant 3 years ago. Continue to monitor for now, no present issues apparen tly. Also continue her home CellCept and Prograf medications. If there are any further abnormalitie s, consider renal consult. 5. Gastrointestinal prophylaxis proton pump inhibitor and deep venous thrombosis prophylaxis. She w ill be on the SCDs, given the mild thrombocytopenia. Dictated By: SUKHWINDER DEL ROSARIO Conf#: [id number] DID#: [id number]
[2018-06-12] MEDS ORDERED: DEXTROSE 50% 50 ML SYRINGE IV PRN ×2 (16:30)
[2018-06-12] MEDS ORDERED: GLUCAGON 1 MG INJ IM PRN (16:30)
[2018-06-12] MEDS ORDERED: GLUCOSE GEL 15 GRAM TUBE BUCCAL PRN (16:30)
[2018-06-12] MEDS ORDERED: GLUCOSE GEL 15 GRAM TUBE PO PRN ×2 (16:30)
[2018-06-12] MEDS: SOD CHLORIDE 0.45% 1,000 ML IV SCH (17:12)
[2018-06-12] MEDS: ALBUTEROL/IPRATROPIUM (NEB) 3 ML AMP HHN PRN (17:26)
[2018-06-12] MEDS: INSULIN ASPART [NOVOLOG] 3 ML PEN SC SCH ×2 (17:58→21:00)
[2018-06-12 18:55] VITALS: PULSE 80
[2018-06-12 19:47] VITALS: BP 133/93; PULSE 97; RESP 18
[2018-06-12 20:00] VITALS: PULSE 71; Ht 152.4 cm; Wt 60.3 kg
[2018-06-12] MEDS ORDERED: DORZOLAMIDE/TIMOLOL 10 ML OPH BOTH EYES SCH (21:00)
[2018-06-12] MEDS: LATANOPROST 0.005% 2.5 ML OPH BOTH EYES SCH (21:00)
[2018-06-12] MEDS ORDERED: HEPARIN 5,000 UNIT/1 ML VIAL SC SCH (21:00)
[2018-06-12] MEDS: ATORVASTATIN 10 MG TAB PO SCH (21:57)
[2018-06-12] MEDS: MYCOPHENOLATE 250 MG CAP PO SCH (21:57)
[2018-06-12] MEDS: MAGNESIUM OXIDE 400 MG TAB PO SCH (21:57)
[2018-06-12 23:47] VITALS: BP 141/71; PULSE 91; RESP 18
[2018-06-13] VITALS (11 sets, daily range): BP systolic 113–175; BP diastolic 70–88; PULSE 59–86; RESP 18–24
[2018-06-13] MEDS: DORZOLAMIDE/TIMOLOL/PF 0.2 ML DROPERETTE BOTH EYES SCH ×3 (00:17→20:09)
[2018-06-13] MEDS: TACROLIMUS 1 MG CAP PO SCH ×3 (00:18→20:09)
[2018-06-13] MEDS: INSULIN ASPART [NOVOLOG] 3 ML PEN SC SCH ×4 (01:00→12:05)
[2018-06-13] MEDS: ACCU-CHEK XX SCH (02:00)
[2018-06-13] MEDS: PANTOPRAZOLE (EC) 40 MG TAB PO SCH (06:41)
[2018-06-13] MEDS: SOD CHLORIDE 0.45% 1,000 ML IV SCH ×3 (06:42→22:18)
[2018-06-13] MEDS: MYCOPHENOLATE 250 MG CAP PO SCH ×2 (08:44→20:09)
[2018-06-13] MEDS: predniSONE 5 MG TAB PO SCH (08:44)
[2018-06-13] MEDS: FOLIC ACID 1 MG TAB PO SCH (08:44)
[2018-06-13] MEDS: MAGNESIUM OXIDE 400 MG TAB PO SCH ×2 (08:44→20:09)
[2018-06-13] MEDS ORDERED: LEVOFLOXACIN 750MG/D5W (PMX) 150 ML IVPB SCH (09:00)
[2018-06-13] MEDS: ALBUTEROL/IPRATROPIUM (NEB) 3 ML AMP HHN PRN (10:18)
--- NOTE | 2018-06-13 12:49 | PN ---
Date/Time of Note Date/Time of Note DATE: 06/13/18 TIME: 12:42 Assessment/Plan VTE Prophylaxis Risk score (from Ns)>0 risk: 5 SCD applied (from Ns): Yes Pharmacological prophylaxis: other Lines/Catheters IV [facility] (from [facility] Peripheral IV Urinary Cath still in place: No Assessment/Plan Hospital Course S: Patient having more shortness of breath and wheezing symptoms this morning, positive cough. No fevers overnight. Tolerating diet. O: Vs- see below PHYSICAL EXAMINATION: GENERAL: Sitting up in bed, significant shortness of breath, coughing, but alert, family member at bedside HEENT: Pupils equal, round, reactive to light. Extraocular muscles intact. NECK: Supple, no thyromegaly. LUNGS: Positive expiratory wheezes bilaterally left greater than right CARDIOVASCULAR: S1, S2 heard. No rubs or gallops. ABDOMEN: Soft, nontender, nondistended. Normal bowel sounds. No rebound or guarding. MUSCULOSKELETAL: No lower extremity edema bilaterally. NEUROLOGIC: No focal deficits. ASSESSMENT AND PLAN: 67-year-old female coming in with cough and shortness of breath for 1 week with signs of possible atypical pneumonia and possible obstructive lung disease, with a prior history of diabetes, hypertension, kidney transplant 3 years ago. 1. Shortness of breath and cough- secondary to upper respiratory infection/atypical pneumonia and obstructive lung disease with wheezing occurring. -Add IV Solu-Medrol, change DuoNeb to [id number] every 4 hours, continue low-dose antibiotics. - f/u PT and OT consults as well. -Continue antitussive medicines as well, Low dose IV fluids. 2. Diabetes. -Sugar stable, A1c was 6.1 -Monitor, continue sliding scale 3. Hypertension. Blood pressure high normal range -Monitor, continue hydralazine as needed p.r.n. 4. History of kidney transplant 3 years ago-no apparent issues - continue to monitor for now. - continue her home CellCept and Prograf medications. - If there are any further abnormalities, consider renal consult. 5. Gastrointestinal prophylaxis proton pump inhibitor and deep venous thrombosis prophylaxis- SCDs, given the mild thrombocytopenia. Result Diagram: 06/13/18 0740 06/13/18 0740 Results 24hrs Laboratory Tests Test 06/12/18 13:24 06/12/18 17:50 06/12/18 19:44 06/12/18 21:56 Lactic Acid Level 1.2 Bedside Glucose 193 181 Prothrombin Time 12.0 Prothrombin Time 0.9 Ratio INR International 0.88 Normalized Ratio Activated 36.5 H Partial Thromboplast Time Free Thyroxine 1.15 Test 06/13/18 06:26 06/13/18 07:40 06/13/18 08:05 06/13/18 12:04 Bedside Glucose 105 104 126 White Blood Count 6.2 Red Blood Count 3.22 L Hemoglobin 10.2 L Hematocrit 30.8 L Mean Corpuscular 95.7 Volume Mean Corpuscular 31.7 Hemoglobin Mean Corpuscular 33.1 Hemoglobin Concent Red Cell 12.3 Distribution Width Platelet Count 81 L Mean Platelet Volume 11.6 H Immature 0.500 H Granulocytes % Neutrophils % 72.9 Lymphocytes % 11.6 L Monocytes % 12.1 H Eosinophils % 2.6 Basophils % 0.3 Nucleated Red Blood 0.0 Cells % Immature 0.030 Granulocytes # Neutrophils # 4.5 Lymphocytes # 0.7 L Monocytes # 0.8 Eosinophils # 0.2 Basophils # 0.0 Nucleated Red Blood 0.0 Cells # Sodium Level 134 L Potassium Level 4.2 Chloride Level 98 Carbon Dioxide Level 28 Anion Gap 8 Blood Urea Nitrogen 31 H Creatinine 1.07 H Est Glomerular 51 L Filtrat Rate mL/min Glucose Level 91 # Hemoglobin A1c 6.1 H Calcium Level 8.7 Phosphorus Level 3.2 Magnesium Level 2.1 Triglycerides Level 117 Cholesterol Level 129 LDL Cholesterol, 52 Calculated HDL Cholesterol 54 Cholesterol/HDL 2.3 Ratio Thyroid Stimulating 1.190 Hormone (TSH) Exam/Review of Systems Exam Vitals Vital Signs Date Temp Pulse Resp B/P (MAP) Pulse Ox O2 O2 Flow FiO2 Time Delivery Rate 06/13/18 98.3 73 24 153/73 96 Nasal 11:11 (99) Cannula 06/13/18 2.0 28 10:21 Intake and Output 06/12/18 06/12/18 06/13/18 1414:59 22:59 06:59 IntakeIntake Total 1500 ml BalanceBalance 1500 ml Results Results 24hrs Laboratory Tests Test 06/12/18 13:24 06/12/18 17:50 06/12/18 19:44 06/12/18 21:56 Lactic Acid Level 1.2 Bedside Glucose 193 181 Prothrombin Time 12.0 Prothrombin Time 0.9 Ratio INR International 0.88 Normalized Ratio Activated 36.5 H Partial Thromboplast Time Free Thyroxine 1.15 Test 06/13/18 06:26 06/13/18 07:40 06/13/18 08:05 06/13/18 12:04 Bedside Glucose 105 104 126 White Blood Count 6.2 Red Blood Count 3.22 L Hemoglobin 10.2 L Hematocrit 30.8 L Mean Corpuscular 95.7 Volume Mean Corpuscular 31.7 Hemoglobin Mean Corpuscular 33.1 Hemoglobin Concent Red Cell 12.3 Distribution Width Platelet Count 81 L Mean Platelet Volume 11.6 H Immature 0.500 H Granulocytes % Neutrophils % 72.9 Lymphocytes % 11.6 L Monocytes % 12.1 H Eosinophils % 2.6 Basophils % 0.3 Nucleated Red Blood 0.0 Cells % Immature 0.030 Granulocytes # Neutrophils # 4.5 Lymphocytes # 0.7 L Monocytes # 0.8 Eosinophils # 0.2 Basophils # 0.0 Nucleated Red Blood 0.0 Cells # Sodium Level 134 L Potassium Level 4.2 Chloride Level 98 Carbon Dioxide Level 28 Anion Gap 8 Blood Urea Nitrogen 31 H Creatinine 1.07 H Est Glomerular 51 L Filtrat Rate mL/min Glucose Level 91 # Hemoglobin A1c 6.1 H Calcium Level 8.7 Phosphorus Level 3.2 Magnesium Level 2.1 Triglycerides Level 117 Cholesterol Level 129 LDL Cholesterol, 52 Calculated HDL Cholesterol 54 Cholesterol/HDL 2.3 Ratio Thyroid Stimulating 1.190 Hormone (TSH) Medications Medication Current Medications IV Flush (NS 3 ml) 3 ml PER PROTOCOL IV ; Start 06/12/18 at 15:00 Ondansetron HCl (Zofran Inj) 4 mg Q6H PRN IV NAUSEA/VOMITING; Start 06/12/18 at 15:00 Acetaminophen (Tylenol Tab) 650 mg Q6H PRN PO .PAIN 1-3 OR TEMP; Start 06/12/18 at 15:00 Acetaminophen/ Hydrocodone Bitart ([place] (5/325)) 1 tab Q6H PRN PO .MOD PAIN 4- 6; Start 06/12/18 at 15:00 Morphine Sulfate (morphine) 2 mg Q4H PRN IV .SEVERE PAIN 7-10; Start 06/12/18 at 15:00 Docusate Sodium (Colace) 100 mg Q12H PRN PO .CONSTIPATION; Start 06/12/18 at 15:00 Magnesium Hydroxide (Milk Of Mag) 30 ml DAILY PRN PO .CONSTIPATION; Start 06/12/18 at 15:00 Pantoprazole (Protonix Tab) 40 mg DAILY@06 PO Last administered on 06/13/18 06:41; Admin Dose 40 MG; Start 06/13/18 at 06:00 Sodium Chloride 1,000 ml @ 75 mls/hr [id number] IV Last administered on 06/13/18 06:42; Admin Dose 75 MLS/HR; Start 06/12/18 at 14:37 Lorazepam (Ativan) 0.5 mg Q6H PRN IV ANXIETY; Start 06/12/18 at 15:00 Hydralazine HCl (Apresoline) 10 mg Q6H PRN IV ELEVATED BLOOD PRESSURE; Start 06/12/18 at 15:00 Nitroglycerin (Nitroglycerin (Sl Tab) 0.4 Mg) 1 tab Q5M PRN SL ANGINA; Start 06/12/18 at 15:00 Folic Acid (Folic Acid) 1 mg DAILY PO Last administered on 06/13/18 08:44; Admin Dose 1 MG; Start 06/13/18 at 09:00 Latanoprost (Xalatan) 1 drop QHS BOTH EYES ; Start 06/12/18 at 21:00 Magnesium Oxide (Mag-Ox 400) 800 mg BID PO Last administered on 06/13/18 08:44; Admin Dose 800 MG; Start 06/12/18 at 21:00 Mycophenolate Mofetil (Cellcept) 250 mg BID PO Last administered on 06/13/18 08:44; Admin Dose 250 MG; Start 06/12/18 at 21:00 Prednisone (Prednisone) 5 mg DAILY PO Last administered on 06/13/18 08:44; Admin Dose 5 MG; Start 06/13/18 at 09:00 Tacrolimus (Prograf) 1 mg Q12 PO Last administered on 06/13/18 08:44; Admin Dose 1 MG; Start 06/12/18 at 21:00 Atorvastatin Calcium (Lipitor) 10 mg QHS PO Last administered on 06/12/18at 21:57; Admin Dose 10 MG; Start 06/12/18 at 21:00 Diagnostic Test (Pha) (Accu-Chek) 1 ea 02 XX ; Start 06/13/18 at 02:00 Insulin Aspart (Novolog Insulin Pen) NOVOLOG *MILD* ALGORI... Q4 SC Last administered on 06/12/18at 17:58; Admin Dose 2 UNIT; Start 06/12/18 at 17:00 Phenol (Cepastat Lozenge) 1 lozenge Q1H PRN MT COUGH; Start 06/12/18 at 16:00 Miscellaneous Information 1 ea NOTE XX ; Start 06/12/18 at 16:30 Glucose (Glutose) 15 gm Q15M PRN PO DECREASED GLUCOSE; Start 06/12/18 at 16:30 Glucose (Glutose) 22.5 gm Q15M PRN PO DECREASED GLUCOSE; Start 06/12/18 at 16:30 Dextrose (D50w Syringe) 25 ml Q15M PRN IV DECREASED GLUCOSE; Start 06/12/18 at 16:30 Dextrose (D50w Syringe) 50 ml Q15M PRN IV DECREASED GLUCOSE; Start 06/12/18 at 16:30 Glucagon (Glucagen) 1 mg Q15M PRN IM DECREASED GLUCOSE; Start 06/12/18 at 16:30 Glucose (Glutose) 15 gm Q15M PRN BUCCAL DECREASED GLUCOSE; Start 06/12/18 at 16:30 Dorzolamide/ Timolol (Cosopt Pf Eye Drops) 1 drop BID BOTH EYES Last administered on 06/13/18at 08:44; Admin Dose 1 DROP; Start 06/12/18 at 22:10 Albuterol/ Ipratropium (Duoneb) 3 ml Q4H RESP THERAPY HHN ; Start 06/13/18 at 13:00; Status SUKHWINDER JOHANSEN Jun 13, 2018 12:49
[2018-06-13] MEDS: ALBUTEROL/IPRATROPIUM (NEB) 3 ML AMP HHN SCH ×3 (12:54→20:25)
[2018-06-13] MEDS ORDERED: ALBUTEROL/IPRATROPIUM (NEB) 3 ML AMP HHN PRN (13:00)
[2018-06-13] MEDS: METHYLPREDNISOLONE 125 MG INJ IV SCH ×3 (13:51→23:34)
[2018-06-13] MEDS: GUAIFENESIN 20 MG/ML 5ML CUP PO PRN (17:17)
[2018-06-13] MEDS: Insulin NOVOLOG SS MILD Algorithm (SS with meals and bedtime) SC SCH ×2 (17:26→20:58)
[2018-06-13] MEDS ORDERED: METHYLPREDNISOLONE 125 MG INJ IV SCH (18:00)
[2018-06-13] MEDS: ATORVASTATIN 10 MG TAB PO SCH (20:09)
[2018-06-13] MEDS: hydrALAzine 20 MG INJ IV PRN (20:10)
[2018-06-13] MEDS ORDERED: INSULIN ASPART [NOVOLOG] 3 ML PEN SC SCH (21:00)
[2018-06-13] MEDS: LATANOPROST 0.005% 2.5 ML OPH BOTH EYES SCH (23:29)
[2018-06-14] VITALS (11 sets, daily range): BP systolic 132–187; BP diastolic 66–101; PULSE 74–99; RESP 18–20
[2018-06-14] MEDS: ALBUTEROL/IPRATROPIUM (NEB) 3 ML AMP HHN SCH ×6 (01:09→20:41)
[2018-06-14] MEDS: ACCU-CHEK XX SCH (02:20)
[2018-06-14] MEDS: GUAIFENESIN 20 MG/ML 5ML CUP PO PRN ×2 (02:45→09:32)
[2018-06-14] MEDS: CEPASTAT LOZENGE MT PRN ×5 (02:45→21:42)
[2018-06-14] MEDS: PANTOPRAZOLE (EC) 40 MG TAB PO SCH (05:38)
[2018-06-14] MEDS: METHYLPREDNISOLONE 125 MG INJ IV SCH ×4 (05:38→23:54)
[2018-06-14] MEDS: MAGNESIUM OXIDE 400 MG TAB PO SCH ×2 (08:15→20:45)
[2018-06-14] MEDS: FOLIC ACID 1 MG TAB PO SCH (08:15)
[2018-06-14] MEDS: predniSONE 5 MG TAB PO SCH (08:15)
[2018-06-14] MEDS: MYCOPHENOLATE 250 MG CAP PO SCH ×2 (08:15→20:45)
[2018-06-14] MEDS: TACROLIMUS 1 MG CAP PO SCH ×2 (08:16→20:45)
[2018-06-14] MEDS: Insulin NOVOLOG SS MILD Algorithm (SS with meals and bedtime) SC SCH ×4 (08:17→20:51)
[2018-06-14] MEDS: DORZOLAMIDE/TIMOLOL/PF 0.2 ML DROPERETTE BOTH EYES SCH ×2 (08:20→20:45)
--- NOTE | 2018-06-14 09:43 | PN ---
Date/Time of Note Date/Time of Note DATE: 06/14/18 TIME: 09:41 Assessment/Plan VTE Prophylaxis Risk score (from Ns)>0 risk: 4 SCD applied (from Ns): Yes Pharmacological prophylaxis: other Lines/Catheters IV [facility] ([facility] Peripheral IV Urinary Cath still in place: No Assessment/Plan Hospital Course S: Patient complained of not sleeping last night, still having significant coughing but no fevers overnight. Shortness of breath slightly improved but still present overall. Has been on breathing treatment and IV steroids as well. O: Vs- see below PHYSICAL EXAMINATION: GENERAL: Sitting up in bed, still with significant coughing, some shortness of breath but alert, family member at bedside HEENT: Pupils equal, round, reactive to light. Extraocular muscles intact. NECK: Supple, no thyromegaly. LUNGS: Positive expiratory wheezes bilaterally left greater than right CARDIOVASCULAR: S1, S2 heard. No rubs or gallops. ABDOMEN: Soft, nontender, nondistended. Normal bowel sounds. No rebound or guarding. MUSCULOSKELETAL: No lower extremity edema bilaterally. NEUROLOGIC: No focal deficits. ASSESSMENT AND PLAN: 67-year-old female coming in with cough and shortness of breath for 1 week with signs of possible atypical pneumonia and possible obstructive lung disease, with a prior history of diabetes, hypertension, kidney transplant 3 years ago. 1. Shortness of breath and cough- secondary to upper respiratory infection/atypical pneumonia and obstructive lung disease with wheezing occurring. - Continue IV Solu-Medrol, DuoNeb [id number] every 4 hours, continue low-dose antibiotics. - f/u PT and OT consults as well. - Continue antitussive medicines as well (guaifenesin, Robitussin-DM, Cepastat), Low dose IV fluids. 2. Diabetes. -Sugar stable, A1c was 6.1 -Monitor, continue sliding scale 3. Hypertension. Blood pressure high normal range -Monitor, continue hydralazine as needed p.r.n. 4. History of kidney transplant 3 years ago-no apparent issues - continue to monitor for now. - continue her home CellCept and Prograf medications. - If there are any further abnormalities, consider renal consult. 5. Gastrointestinal prophylaxis proton pump inhibitor and deep venous thrombosis prophylaxis- SCDs, given the mild thrombocytopenia. Result Diagram: 4/28/19 0621 4/28/19 0621 Results 24hrs Laboratory Tests Test 06/13/18 12:04 06/13/18 17:16 06/13/18 20:08 06/14/18 02:16 Bedside Glucose 126 197 200 194 Test 06/14/18 06:21 06/14/18 07:54 White Blood Count 4.6 #L Red Blood Count 3.35 L Hemoglobin 10.7 L Hematocrit 30.6 L Mean Corpuscular 91.3 Volume Mean Corpuscular 31.9 Hemoglobin Mean Corpuscular 35.0 Hemoglobin Concent Red Cell 11.9 Distribution Width Platelet Count 81 L Mean Platelet Volume 11.3 H Immature 1.100 H Granulocytes % Neutrophils % 90.6 H Lymphocytes % 7.2 L Monocytes % 0.9 Eosinophils % 0.0 Basophils % 0.2 Nucleated Red Blood 0.0 Cells % Immature 0.050 H Granulocytes # Neutrophils # 4.1 Lymphocytes # 0.3 L Monocytes # 0.0 L Eosinophils # 0.0 Basophils # 0.0 Nucleated Red Blood 0.0 Cells # Sodium Level 134 L Potassium Level 4.0 Chloride Level 97 Carbon Dioxide Level 25 Anion Gap 12 Blood Urea Nitrogen 29 H Creatinine 0.97 Est Glomerular 57 L Filtrat Rate mL/min Glucose Level 194 # Calcium Level 8.7 Bedside Glucose 209 Exam/Review of Systems Exam Vitals Vital Signs Date Temp Pulse Resp B/P (MAP) Pulse Ox O2 O2 Flow FiO2 Time Delivery Rate 06/14/18 80 20 98 Nasal 3.0 09:19 Cannula 06/14/18 97.8 152/80 07:56 (104) 06/13/18 16:00 Intake and Output 06/13/18 06/13/18 06/14/18 1515:00 23:00 07:00 IntakeIntake Total 1000 ml 500 ml BalanceBalance 1000 ml 500 ml Results Results 24hrs Laboratory Tests Test 06/13/18 12:04 06/13/18 17:16 06/13/18 20:08 06/14/18 02:16 Bedside Glucose 126 197 200 194 Test 06/14/18 06:21 06/14/18 07:54 White Blood Count 4.6 #L Red Blood Count 3.35 L Hemoglobin 10.7 L Hematocrit 30.6 L Mean Corpuscular 91.3 Volume Mean Corpuscular 31.9 Hemoglobin Mean Corpuscular 35.0 Hemoglobin Concent Red Cell 11.9 Distribution Width Platelet Count 81 L Mean Platelet Volume 11.3 H Immature 1.100 H Granulocytes % Neutrophils % 90.6 H Lymphocytes % 7.2 L Monocytes % 0.9 Eosinophils % 0.0 Basophils % 0.2 Nucleated Red Blood 0.0 Cells % Immature 0.050 H Granulocytes # Neutrophils # 4.1 Lymphocytes # 0.3 L Monocytes # 0.0 L Eosinophils # 0.0 Basophils # 0.0 Nucleated Red Blood 0.0 Cells # Sodium Level 134 L Potassium Level 4.0 Chloride Level 97 Carbon Dioxide Level 25 Anion Gap 12 Blood Urea Nitrogen 29 H Creatinine 0.97 Est Glomerular 57 L Filtrat Rate mL/min Glucose Level 194 # Calcium Level 8.7 Bedside Glucose 209 Medications Medication Current Medications IV Flush (NS 3 ml) 3 ml PER PROTOCOL IV ; Start 06/12/18 at 15:00 Ondansetron HCl (Zofran Inj) 4 mg Q6H PRN IV NAUSEA/VOMITING; Start 06/12/18 at 15:00 Acetaminophen (Tylenol Tab) 650 mg Q6H PRN PO .PAIN 1-3 OR TEMP; Start 06/12/18 at 15:00 Acetaminophen/ Hydrocodone Bitart ([place] (5/325)) 1 tab Q6H PRN PO .MOD PAIN 4- 6; Start 06/12/18 at 15:00 Morphine Sulfate (morphine) 2 mg Q4H PRN IV .SEVERE PAIN 7-10; Start 06/12/18 at 15:00 Docusate Sodium (Colace) 100 mg Q12H PRN PO .CONSTIPATION; Start 06/12/18 at 15:00 Magnesium Hydroxide (Milk Of Mag) 30 ml DAILY PRN PO .CONSTIPATION; Start 06/12/18 at 15:00 Pantoprazole (Protonix Tab) 40 mg DAILY@06 PO Last administered on 06/14/18at 05:38; Admin Dose 40 MG; Start 06/13/18 at 06:00 Sodium Chloride 1,000 ml @ 75 mls/hr [id number] IV Last administered on 06/13/18at 22:18; Admin Dose 75 MLS/HR; Start 06/12/18 at 14:37; Stop 06/14/18 at 18:00 Lorazepam (Ativan) 0.5 mg Q6H PRN IV ANXIETY; Start 06/12/18 at 15:00 Hydralazine HCl (Apresoline) 10 mg Q6H PRN IV ELEVATED BLOOD PRESSURE Last administered on 06/13/18 20:10; Admin Dose 10 MG; Start 06/12/18 at 15:00 Nitroglycerin (Nitroglycerin (Sl Tab) 0.4 Mg) 1 tab Q5M PRN SL ANGINA; Start 06/12/18 at 15:00 Folic Acid (Folic Acid) 1 mg DAILY PO Last administered on 06/14/18 08:15; Admin Dose 1 MG; Start 06/13/18 at 09:00 Latanoprost (Xalatan) 1 drop QHS BOTH EYES Last administered on 06/13/18 23:2 9; Admin Dose 1 DROP; Start 06/12/18 at 21:00 Magnesium Oxide (Mag-Ox 400) 800 mg BID PO Last administered on 06/14/18 08:15; Admin Dose 800 MG; Start 06/12/18 at 21:00 Mycophenolate Mofetil (Cellcept) 250 mg BID PO Last administered on 06/14/18 08:15; Admin Dose 250 MG; Start 06/12/18 at 21:00 Prednisone (Prednisone) 5 mg DAILY PO Last administered on 06/14/18 08:15; Admin Dose 5 MG; Start 06/13/18 at 09:00 Tacrolimus (Prograf) 1 mg Q12 PO Last administered on 06/14/18 08:16; Admin Dose 1 MG; Start 06/12/18 at 21:00 Atorvastatin Calcium (Lipitor) 10 mg QHS PO Last administered on 06/13/18 20:09; Admin Dose 10 MG; Start 06/12/18 at 21:00 Diagnostic Test (Pha) (Accu-Chek) 1 ea 02 XX Last administered on 06/14/18 02:20; Admin Dose 1 EA; Start 06/13/18 at 02:00 Phenol (Cepastat Lozenge) 1 lozenge Q1H PRN MT COUGH Last administered on 06/14/18 09:32; Admin Dose 1 LOZENGE; Start 06/12/18 at 16:00 Miscellaneous Information 1 ea NOTE XX ; Start 06/12/18 at 16:30 Glucose (Glutose) 15 gm Q15M PRN PO DECREASED GLUCOSE; Start 06/12/18 at 16:30 Glucose (Glutose) 22.5 gm Q15M PRN PO DECREASED GLUCOSE; Start 06/12/18 at 16:30 Dextrose (D50w Syringe) 25 ml Q15M PRN IV DECREASED GLUCOSE; Start 06/12/18 at 16:30 Dextrose (D50w Syringe) 50 ml Q15M PRN IV DECREASED GLUCOSE; Start 06/12/18 at 16:30 Glucagon (Glucagen) 1 mg Q15M PRN IM DECREASED GLUCOSE; Start 06/12/18 at 16:30 Glucose (Glutose) 15 gm Q15M PRN BUCCAL DECREASED GLUCOSE; Start 06/12/18 at 16:30 Dorzolamide/ Timolol (Cosopt Pf Eye Drops) 1 drop BID BOTH EYES Last administered on 06/14/18at 08:20; Admin Dose 1 DROP; Start 06/12/18 at 22:10 Albuterol/ Ipratropium (Duoneb) 3 ml Q4H RESP THERAPY HHN Last administered on 06/14/18at 09:17; Admin Dose 3 ML; Start 06/13/18 at 13:00 Albuterol/ Ipratropium (Duoneb) 3 ml Q2H RESP THERAPY PRN HHN WHEEZING; Start 06/13/18 at 13:00 Methylprednisolone Sodium Succinate (Solu-Medrol) 125 mg Q6 IV Last administered on 06/14/18at 05:38; Admin Dose 125 MG; Start 06/13/18 at 13:00 Guaifenesin (Robitussin Liquid Cup) 200 mg Q4H PRN PO COUGH Last administered on 06/14/18at 09:32; Admin Dose 200 MG; Start 06/13/18 at 13:00 Insulin Aspart (Novolog Insulin Pen) (Adult SC Insulin - Mild Algorithm)... AC MEALS AND BEDTIME SC Last administered on 06/14/18at 08:17; Admin Dose 2 UNIT; Start 06/13/18 at 17:25 Guaifenesin/ Dextromethorphan (Robitussin Dm Liquid Cup) 10 ml Q4H PRN PO COUGH; Start 06/14/18 at 10:00; Status UNV Zolpidem Tartrate (Ambien) 2.5 mg HS PRN PO INSOMNIA; Start 06/14/18 at 10:00; Status UNV SUKHWINDER JO S. Jun 14, 2018 09:43
[2018-06-14] MEDS: SOD CHLORIDE 0.45% 1,000 ML IV SCH (11:12)
[2018-06-14] MEDS: CEFEPIME 2GM/50 ML (PMX) 50 ML IVPB SCH ×2 (11:59→21:41)
[2018-06-14] MEDS: hydrALAzine 20 MG INJ IV PRN (12:32)
[2018-06-14] MEDS: GUAIFENESIN/DM 5ML CUP PO PRN ×3 (13:29→21:41)
[2018-06-14] MEDS: ATORVASTATIN 10 MG TAB PO SCH (20:45)
[2018-06-14] MEDS: LATANOPROST 0.005% 2.5 ML OPH BOTH EYES SCH (20:45)
[2018-06-14] MEDS: ZOLPIDEM 5 MG TAB PO PRN (21:42)
[2018-06-15] VITALS (12 sets, daily range): BP systolic 126–185; BP diastolic 64–89; PULSE 76–98; RESP 16–20
[2018-06-15] MEDS: ALBUTEROL/IPRATROPIUM (NEB) 3 ML AMP HHN SCH ×6 (01:03→21:33)
[2018-06-15] MEDS: GUAIFENESIN/DM 5ML CUP PO PRN (02:22)
[2018-06-15] MEDS: CEPASTAT LOZENGE MT PRN (02:22)
[2018-06-15] MEDS: ACCU-CHEK XX SCH (02:54)
[2018-06-15] MEDS ORDERED: ACCU-CHEK XX ONE (03:00)
[2018-06-15] MEDS ORDERED: INSULIN ASPART [NOVOLOG] 3 ML PEN SC ONE (03:00)
[2018-06-15] MEDS: METHYLPREDNISOLONE 125 MG INJ IV SCH ×4 (05:32→23:58)
[2018-06-15] MEDS: PANTOPRAZOLE (EC) 40 MG TAB PO SCH (05:32)
[2018-06-15] MEDS: Insulin NOVOLOG SS MILD Algorithm (SS with meals and bedtime) SC SCH ×4 (08:49→21:46)
[2018-06-15] MEDS: INSULIN GLARGINE [LANTus] (100 UNITS/ML) SYG SC SCH (08:50)
[2018-06-15] MEDS: predniSONE 5 MG TAB PO SCH (08:52)
[2018-06-15] MEDS: MAGNESIUM OXIDE 400 MG TAB PO SCH ×2 (08:52→21:15)
[2018-06-15] MEDS: MYCOPHENOLATE 250 MG CAP PO SCH ×2 (08:52→21:15)
[2018-06-15] MEDS: DORZOLAMIDE/TIMOLOL/PF 0.2 ML DROPERETTE BOTH EYES SCH ×2 (08:52→21:14)
[2018-06-15] MEDS: FOLIC ACID 1 MG TAB PO SCH (08:52)
[2018-06-15] MEDS: TACROLIMUS 1 MG CAP PO SCH ×2 (08:52→21:15)
[2018-06-15] MEDS: CEFEPIME 2GM/50 ML (PMX) 50 ML IVPB SCH ×2 (08:53→21:16)
[2018-06-15] MEDS: hydrALAzine 20 MG INJ IV PRN ×2 (15:41→20:57)
--- NOTE | 2018-06-15 17:55 | PN ---
Date/Time of Note Date/Time of Note DATE: 06/15/18 TIME: 17:51 Assessment/Plan VTE Prophylaxis Risk score (from Ns)>0 risk: 5 SCD applied (from [facility]): Yes Pharmacological prophylaxis: NA/contraindicated Pharm contraindication: low risk/ambulating Lines/Catheters IV C[facility]ter Type (from [facility]): Peripheral IV Urinary Cath still in place: No Assessment/Plan Assessment/Plan 67-year-old woman coming in with cough and shortness of breath for 1 week with signs of possible atypical pneumonia and possible obstructive lung disease, with a prior history of diabetes, hypertension, kidney transplant 3 years ago. 1. Shortness of breath and cough- secondary to upper respiratory infection/atypical pneumonia and obstructive lung disease with wheezing occurring. - On very high dose solumedrol without improvement. Will consult pulmonary. - DuoNeb [id number] every 4 hours, continue low-dose antibiotics. - Continue antitussive medicines as well (guaifenesin, Robitussin-DM, Cepastat), Low dose IV fluids. 2. Hyponatremia - Na dropping quickly from 140 on admission, now 123. - Patient euvolemic, compulsively drinking water without eating. 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 - Nephrology consulted. - q12h BMPs 2. Diabetes. -Sugar stable, A1c was 6.1 -Monitor, continue sliding scale 3. Hypertension. Blood pressure high normal range -Monitor, continue hydralazine as needed p.r.n. 4. History of kidney transplant 3 years ago-no apparent issues - continue to monitor for now. - continue her home CellCept and Prograf medications. - If there are any further abnormalities, consider renal consult. 5. Gastrointestinal prophylaxis proton pump inhibitor and deep venous thrombosis prophylaxis- SCDs, given the mild thrombocytopenia. Result Diagram: 06/15/18 0722 06/15/18 1502 Subjective 24 Hr Interval Summary Free Text/Dictation Patient with poor appetite but compulsively drinking water, insisting that her throat is too dry. Had an episode of agitation, likely delirium this afternoon when son left. Resolved when son returned to bedside. Intermittent episodes of diaphoresis not related to fever. Exam/Review of Systems Exam Vitals Vital Signs Date Temp Pulse Resp B/P (MAP) Pulse Ox O2 O2 Flow FiO2 Time Delivery Rate 06/15/18 98 29 96 Nasal 4.0 16:30 Cannula 06/15/18 98.3 185/87 15:11 (119) 06/13/18 28 16:00 Intake and Output 06/14/18 06/14/18 06/15/18 1515:00 23:00 07:00 IntakeIntake Total 1050 ml 1300 ml 800 ml BalanceBalance 1050 ml 1300 ml 800 ml Exam GENERAL: Sitting up in bed, easily distractable, confused. HEENT: Pupils equal, round, reactive to light. Extraocular muscles intact. NECK: Supple, no thyromegaly. LUNGS: Positive expiratory wheezes bilaterally with prolonged expiratory phase. CARDIOVASCULAR: S1, S2 heard. No rubs or gallops. ABDOMEN: Soft, nontender, nondistended. Normal bowel sounds. No rebound or guarding. MUSCULOSKELETAL: No lower extremity edema bilaterally. Results Results 24hrs Laboratory Tests Test 06/14/18 17:52 06/14/18 20:42 06/15/18 02:34 06/15/18 02:38 Bedside Glucose 231 H 216 315 H 380 H Test 06/15/18 04:54 06/15/18 07:22 06/15/18 08:24 06/15/18 11:39 Bedside Glucose 89 176 233 H White Blood Count 9.2 # Red Blood Count 3.08 L Hemoglobin 9.9 L Hematocrit 28.0 L Mean Corpuscular 90.9 Volume Mean Corpuscular 32.1 Hemoglobin Mean Corpuscular 35.4 Hemoglobin Concent Red Cell 12.0 Distribution Width Platelet Count 103 #L Mean Platelet Volume 11.5 H Immature 1.400 H Granulocytes % Neutrophils % 89.4 H Lymphocytes % 2.4 L Monocytes % 6.8 Eosinophils % 0.0 Basophils % 0.0 Nucleated Red Blood 0.0 Cells % Immature 0.130 H Granulocytes # Neutrophils # 8.2 H Lymphocytes # 0.2 L Monocytes # 0.6 Eosinophils # 0.0 Basophils # 0.0 Nucleated Red Blood 0.0 Cells # Sodium Level 128 L Potassium Level 3.9 Chloride Level 92 L Carbon Dioxide Level 26 Anion Gap 10 Blood Urea Nitrogen 33 H Creatinine 0.86 Est Glomerular > 60 Filtrat Rate mL/min Glucose Level 121 # Calcium Level 8.0 L Phosphorus Level 3.3 Magnesium Level 1.9 Test 06/15/18 15:02 06/15/18 16:03 06/15/18 17:16 Sodium Level 123 L Potassium Level 4.1 Chloride Level 89 L Carbon Dioxide Level 25 Anion Gap 9 Blood Urea Nitrogen 33 H Creatinine 0.82 Est Glomerular > 60 Filtrat Rate mL/min Glucose Level 162 Calcium Level 8.1 L Bedside Glucose 187 164 Medications Medication Current Medications IV Flush (NS 3 ml) 3 ml PER PROTOCOL IV ; Start 06/12/18 at 15:00 Ondansetron HCl (Zofran Inj) 4 mg Q6H PRN IV NAUSEA/VOMITING Last administered on 06/15/18at 15:41; Admin Dose 4 MG; Start 06/12/18 at 15:00 Acetaminophen (Tylenol Tab) 650 mg Q6H PRN PO .PAIN 1-3 OR TEMP Last administered on 06/14/18at 12:32; Admin Dose 650 MG; Start 06/12/18 at 15:00 Acetaminophen/ Hydrocodone Bitart ([place] (5/325)) 1 tab Q6H PRN PO .MOD PAIN 4- 6; Start 06/12/18 at 15:00 Morphine Sulfate (morphine) 2 mg Q4H PRN IV .SEVERE PAIN 7-10; Start 06/12/18 at 15:00 Docusate Sodium (Colace) 100 mg Q12H PRN PO .CONSTIPATION; Start 06/12/18 at 15:00 Magnesium Hydroxide (Milk Of Mag) 30 ml DAILY PRN PO .CONSTIPATION; Start 06/12/18 at 15:00 Pantoprazole (Protonix Tab) 40 mg DAILY@06 PO Last administered on 06/15/18at 05:32; Admin Dose 40 MG; Start 06/13/18 at 06:00 Lorazepam (Ativan) 0.5 mg Q6H PRN IV ANXIETY; Start 06/12/18 at 15:00 Hydralazine HCl (Apresoline) 10 mg Q6H PRN IV ELEVATED BLOOD PRESSURE Last administered on 06/15/18at 15:41; Admin Dose 10 MG; Start 06/12/18 at 15:00 Nitroglycerin (Nitroglycerin (Sl Tab) 0.4 Mg) 1 tab Q5M PRN SL ANGINA; Start 06/12/18 at 15:00 Folic Acid (Folic Acid) 1 mg DAILY PO Last administered on 06/15/18at 08:52; Admin Dose 1 MG; Start 06/13/18 at 09:00 Latanoprost (Xalatan) 1 drop QHS BOTH EYES Last administered on 06/14/18 20:45; Admin Dose 1 DROP; Start 06/12/18 at 21:00 Magnesium Oxide (Mag-Ox 400) 800 mg BID PO Last administered on 06/15/18 08:52; Admin Dose 800 MG; Start 06/12/18 at 21:00 Mycophenolate Mofetil (Cellcept) 250 mg BID PO Last administered on 06/15/18 08:52; Admin Dose 250 MG; Start 06/12/18 at 21:00 Prednisone (Prednisone) 5 mg DAILY PO Last administered on 06/15/18 08:52; Admin Dose 5 MG; Start 06/13/18 at 09:00 Tacrolimus (Prograf) 1 mg Q12 PO Last administered on 06/15/18 08:52; Admin Dose 1 MG; Start 06/12/18 at 21:00 Atorvastatin Calcium (Lipitor) 10 mg QHS PO Last administered on 06/14/18 20:45; Admin Dose 10 MG; Start 06/12/18 at 21:00 Diagnostic Test (Pha) (Accu-Chek) 1 ea 02 XX Last administered on 06/15/18 02:54; Admin Dose 1 EA; Start 06/13/18 at 02:00 Phenol (Cepastat Lozenge) 1 lozenge Q1H PRN MT COUGH Last administered on 06/15/18 02:22; Admin Dose 1 LOZENGE; Start 06/12/18 at 16:00 Miscellaneous Information 1 ea NOTE XX ; Start 06/12/18 at 16:30 Glucose (Glutose) 15 gm Q15M PRN PO DECREASED GLUCOSE; Start 06/12/18 at 16:30 Glucose (Glutose) 22.5 gm Q15M PRN PO DECREASED GLUCOSE; Start 06/12/18 at 16:30 Dextrose (D50w Syringe) 25 ml Q15M PRN IV DECREASED GLUCOSE; Start 06/12/18 at 16:30 Dextrose (D50w Syringe) 50 ml Q15M PRN IV DECREASED GLUCOSE; Start 06/12/18 at 16:30 Glucagon (Glucagen) 1 mg Q15M PRN IM DECREASED GLUCOSE; Start 06/12/18 at 16:30 Glucose (Glutose) 15 gm Q15M PRN BUCCAL DECREASED GLUCOSE; Start 06/12/18 at 16:30 Dorzolamide/ Timolol (Cosopt Pf Eye Drops) 1 drop BID BOTH EYES Last administered on 06/15/18 08:52; Admin Dose 1 DROP; Start 06/12/18 at 22:10 Albuterol/ Ipratropium (Duoneb) 3 ml Q4H RESP THERAPY HHN Last administered on 06/15/18 16:36; Admin Dose 3 ML; Start 06/13/18 at 13:00 Albuterol/ Ipratropium (Duoneb) 3 ml Q2H RESP THERAPY PRN HHN WHEEZING; Start 06/13/18 at 13:00 Methylprednisolone Sodium Succinate (Solu-Medrol) 125 mg Q6 IV Last administered on 06/15/18 17:25; Admin Dose 125 MG; Start 06/13/18 at 13:00 Guaifenesin (Robitussin Liquid Cup) 200 mg Q4H PRN PO COUGH Last administered on 06/14/18 09:32; Admin Dose 200 MG; Start 06/13/18 at 13:00 Insulin Aspart (Novolog Insulin Pen) (Adult SC Insulin - Mild Algorithm)... AC MEALS AND BEDTIME SC Last administered on 06/15/18 11:58; Admin Dose 3 UNIT; Start 06/13/18 at 17:25 Guaifenesin/ Dextromethorphan (Robitussin Dm Liquid Cup) 10 ml Q4H PRN PO COUGH Last administered on 06/15/18 02:22; Admin Dose 10 ML; Start 06/14/18 at 10:00 Zolpidem Tartrate (Ambien) 2.5 mg HS PRN PO INSOMNIA Last administered on 06/14/18 21:42; Admin Dose 2.5 MG; Start 06/14/18 at 10:00 Cefepime HCl 50 ml @ 100 mls/hr Q12 IVPB Last administered on 06/15/18 08:53; Admin Dose 100 MLS/HR; Start 06/14/18 at 12:00 Insulin Glargine (Lantus) 10 units DAILY@0800 SC Last administered on 06/15/18 08:50; Admin Dose 10 UNITS; Start 06/15/18 at 08:00 CARLOZ PETERSON MD Jun 15, 2018 17:55
--- NOTE | 2018-06-15 20:50 | CONS ---
DATE OF ADMISSION: 06/12/2018 DATE OF CONSULTATION: TYPE OF CONSULTATION: Renal. Thank you, Dr. Jo, for asking me to participate in medical management of this patient. REASON FOR CONSULTATION: Hyponatremia and history of kidney transplant. HISTORY OF PRESENT ILLNESS: This 67-year-old female is being seen now because of hyponatremia. The patient does have a history of chronic kidney disease and did undergo [place] [facility] [place]. Since admission, the patient apparently has been drinking large amounts of fluid. Th e patient is French speaking and her son is in the room with her and is acting as a stock feeder. He t ells me that she was well until last week when she ate some raw crab. The next day, she felt ill and then the day after that she developed cough and shortness of breath and he brought her to the emerge ncy room here at [facility]. The patient has had a cough which seems to be better today. She has had wheezing. According to the son, the patient has been quite thirsty and was drink ing large amounts of water. Her I's and O's yesterday showed that she had 3150 mL of fluid in. She is awake and alert and according to her son is not confused or disoriented. CURRENT MEDICATIONS: Includes the followin. Lantus insulin. 2. Cefepime. 3. Robitussin-DM. 4. Ambien for sleep. 5. NovoLog insulin sliding scale. 6. Methylprednisolone 125 mg IV q.6 hours. 7. Guaifenesin q.4 p.r.n. cough. 8. Folic acid 1 mg a day. 9. Prednisone 5 mg a day. 10. Pantoprazole 40 mg daily. 11. Timolol eyedrops twice a day. 12. Latanoprost. 13. Magnesium oxide twice a day. 14. CellCept 250 mg twice a day. 15. Tacrolimus 1 mg q.12 hours. 16. Atorvastatin 10 mg a day. 17. Zofran 4 mg q.6 hours p.r.n. 18. [place] q.4 hours p.r.n. 19. Colace. 20. Lorazepam. 21. Hydralazine. 22. Nitroglycerin p.r.n. PAST MEDICAL HISTORY: Remarkable for: 1. Chronic renal failure on dialysis for 9 years and then receiving a kidney transplant 3 years ago: 2. On immunosuppressive therapy. 3. Diabetes mellitus type 2. 4. Hypertension. ALLERGIES: NO KNOWN ALLERGIES. PAST SURGICAL HISTORY: Cadaveric kidney transplant in 2016. SOCIAL HISTORY: She does not smoke, drink alcohol or use IV drugs. FAMILY HISTORY: Unremarkable. PHYSICAL EXAMINATION: GENERAL: At this time reveals a well-developed, ill-appearing female who is oriented. VITAL SIGNS: Temperature 98.2, respirations 16, blood pressure 171/89, O2 saturation 97% on 4 liters nasal cannula. HEENT: Head is normocephalic. Eyes: Extraocular muscles are intact. Nose and mouth are normal. NECK: Supple. LUNGS: She has bilateral fine inspiratory and expiratory wheezes with diminished breath sounds. HEART: Regular rhythm. No murmurs, gallops or rubs. ABDOMEN: Slightly distended, soft, nontender. No masses or megaly. EXTREMITIES: No peripheral edema. NEUROLOGIC: Grossly intact without obvious focal neurologic deficits. LABORATORY TESTS: Sodium is 123, potassium 4.1, chloride 89, CO2 of 25, BUN 33, creatinine 0.82, glu cose of 162, calcium 8.1. White blood count 9200, hemoglobin 9.9, hematocrit 28, platelets 103,000. IMPRESSION: 1. Hyponatremia. From patient's history of drinking large amounts of fluid over the last several da ys, I suspect that she has a dilutional hyponatremia due to high fluid intake. According to the rangel ent's son, she has been very thirsty and drinking a lot of fluid. I asked the son to tell her to cut back on fluid and to limit her oral fluid intake. One must also rule out syndrome of inappropriate antidiuretic hormone and depletional hyponatremia. 2. Cadaveric kidney transplant in 2016 with normal renal function at this time. The patient is on i mmunosuppressive drugs. 3. Acute bronchitis. 4. Diabetes mellitus type 2. PLAN: 1. Limit oral fluid intake. 2. Check urine sodium and urine osmolality. 3. Check labs in the morning. 4. I will follow the patient along with you. Dictated By: LESLEY AMBROSE MD, ND/KESHAV Conf#: [id number] DID#: [id number] CC: CARLOZ PETERSON MD; SUKHWINDER JO;*EndCC*
[2018-06-15] MEDS: LATANOPROST 0.005% 2.5 ML OPH BOTH EYES SCH (21:13)
[2018-06-15] MEDS: ATORVASTATIN 10 MG TAB PO SCH (21:15)
[2018-06-15] MEDS: LOSARTAN 50 MG TAB PO SCH (21:15)
[2018-06-15] MEDS: LORAZEPAM 2 MG INJ IV PRN (21:15)
[2018-06-16] VITALS (12 sets, daily range): BP systolic 128–173; BP diastolic 65–87; PULSE 73–105; RESP 17–20
[2018-06-16] MEDS: ACCU-CHEK XX SCH (01:41)
[2018-06-16] MEDS: ALBUTEROL/IPRATROPIUM (NEB) 3 ML AMP HHN SCH ×6 (01:44→20:00)
[2018-06-16] MEDS: hydrALAzine 20 MG INJ IV PRN ×3 (04:35→21:46)
[2018-06-16] MEDS: PANTOPRAZOLE (EC) 40 MG TAB PO SCH (05:12)
[2018-06-16] MEDS: METHYLPREDNISOLONE 125 MG INJ IV SCH (05:12)
[2018-06-16] MEDS: Insulin NOVOLOG SS MILD Algorithm (SS with meals and bedtime) SC SCH ×4 (08:21→21:06)
[2018-06-16] MEDS: INSULIN GLARGINE [LANTus] (100 UNITS/ML) SYG SC SCH (08:22)
[2018-06-16] MEDS: DORZOLAMIDE/TIMOLOL/PF 0.2 ML DROPERETTE BOTH EYES SCH ×2 (09:36→20:49)
[2018-06-16] MEDS: MYCOPHENOLATE 250 MG CAP PO SCH ×2 (09:37→20:49)
[2018-06-16] MEDS: predniSONE 5 MG TAB PO SCH (09:37)
[2018-06-16] MEDS: MAGNESIUM OXIDE 400 MG TAB PO SCH ×2 (09:37→20:49)
[2018-06-16] MEDS: FOLIC ACID 1 MG TAB PO SCH (09:37)
[2018-06-16] MEDS: TACROLIMUS 1 MG CAP PO SCH ×2 (09:37→20:49)
[2018-06-16] MEDS: LOSARTAN 50 MG TAB PO SCH (09:38)
[2018-06-16] MEDS: CEFEPIME 2GM/50 ML (PMX) 50 ML IVPB SCH ×2 (09:45→20:43)
--- NOTE | 2018-06-16 11:50 | CONS ---
Assessment/Plan Assessment/Plan Assessment/Plan (Daily) Chest x-rays were reviewed which is showing increasing right perihilar infiltrative changes. Assessment and recommendations; 1. patient admitted with bilateral community-acquired pneumonia. 2. Chronic immunosuppression due to history of renal transplant. 3. Anemia and thrombocytopenia. 4. History of diabetes and hypertension. 5. Glaucoma. 6. Hyponatremia, possibly due to polydipsia. Add Levaquin 500 mg IV daily. Obtain follow-up chest x-ray in 24 hours. Decrease Solu-Medrol to 40 mg every 8 hours. Add DuoNeb 4 times daily. I did have a detailed discussion with the patient's son at bedside and answered his questions as well as patient's questions as well. Consultation Date/Type/Reason Admit Date/Time Jun 12, 2018 at 10:59 Date of Consultation: Jun 16, 2018 Type of Consult Pulmonary Patient is a pleasant 67-year-old [place] lady who came into the hospital on the of this month with a 2-day history of chest congestion coughing and wheezing. Patient had been diagnosed with pneumonia and started on antibiotic regimen. Patient still complains of some cough and chest congestion. But denies any fever, chills, chest pain, any sputum production or hemoptysis. According to the patient she was fine until symptoms started last week. Past medical history; 1. History of chronic immunosuppression due to history of renal transplant 3 years ago. 2. Diabetes 3. Hypertension 4. Glaucoma 5. Chronic anemia Medications; reviewed Allergies; none Social history; patient has been a lifelong non-smoker. Family history; , has a supportive family. Occupational history; patient has been a housewife. Review of systems; denies any headache, visual changes, sore throat, dysphagia, chest pain, angina, complains of very mild wheezing. Complains of cough and chest congestion. Denies any sputum production or hemoptysis. Any fever or chills. Any abdominal pain, nausea vomiting. Any weight loss. No orthopnea. Any edema. Any urinary symptoms. Any melena or hematochezia. Any weight loss. Any skin rash. General exam; elderly lady, laying comfortably in bed. Awake and alert. Curren tly in no distress. Date/Time of Note DATE: 06/16/18 TIME: 11:45 Past Medical History Home Meds Reported Medications Celecoxib* (Celebrex*) 200 Mg Capsule, 200 MG PO DAILY, CAP 06/12/18 Simvastatin* (Zocor*) 10 Mg Tablet, 10 MG PO QHS, #30 TAB 06/12/18 Mycophenolate Mofetil* (Cellcept*) 250 Mg Capsule, 1 CAP ORAL BID 06/12/18 Dorzolamide/Timolol* (Dorzolamide/Timolol*) 10 Ml Drops, 1 DROP BOTH EYES BID, #1 EA 12/31/16 Latanoprost (Xalatan) 2.5 Ml Drops, 1 DROP BOTH EYES QHS, #1 BOTTLE 12/31/16 Losartan-Hydrochlorothiazide (Losartan-HCTZ) 50-12.5 Mg Tab, 1 TAB PO DAILY, TAB 12/31/16 Insulin Glargine* (Lantus*) 100 Unit/Ml Soln, 0-5 UNIT SC HS, EA PER SLIDING SCALE 06/19/14 Insulin Aspart* (Novolog Insulin Pen*) 100 Unit/Ml Soln, 0 SC .SLIDING SCALE AC, EA 06/19/14 Tramadol HCl (Tramadol HCl) 50 Mg Tab, 50 MG PO Q6H PRN for PAIN, TAB 06/19/14 Magnesium Oxide* (Mag-Oxide*) 400 Mg Tablet, 800 MG PO BID, TAB 06/19/14 Folic Acid* (Folic Acid*) 1 Mg Tablet, 1 MG PO DAILY, TAB 06/19/14 Prednisone* (Prednisone*) 5 Mg Tab, 5 MG PO DAILY, TAB 06/19/14 Tacrolimus* (Tacrolimus*) 1 Mg Capsule, 1 MG PO Q12, CAP 06/19/14 Discontinued Reported Medications Pregabalin* (Lyrica*) 75 Mg Capsule, 75 MG PO BID, CAP 12/31/16 Medications Current Medications IV Flush (NS 3 ml) 3 ml PER PROTOCOL IV ; Start 06/12/18 at 15:00 Ondansetron HCl (Zofran Inj) 4 mg Q6H PRN IV NAUSEA/VOMITING Last administered on 06/15/18at 15:41; Admin Dose 4 MG; Start 06/12/18 at 15:00 Acetaminophen (Tylenol Tab) 650 mg Q6H PRN PO .PAIN 1-3 OR TEMP Last administered on 06/14/18at 12:32; Admin Dose 650 MG; Start 06/12/18 at 15:00 Acetaminophen/ Hydrocodone Bitart ([place] (5/325)) 1 tab Q6H PRN PO .MOD PAIN 4- 6; Start 06/12/18 at 15:00 Morphine Sulfate (morphine) 2 mg Q4H PRN IV .SEVERE PAIN 7-10; Start 06/12/18 at 15:00 Docusate Sodium (Colace) 100 mg Q12H PRN PO .CONSTIPATION; Start 06/12/18 at 15:00 Magnesium Hydroxide (Milk Of Mag) 30 ml DAILY PRN PO .CONSTIPATION; Start 06/12/18 at 15:00 Pantoprazole (Protonix Tab) 40 mg DAILY@06 PO Last administered on 06/16/18 05:12; Admin Dose 40 MG; Start 06/13/18 at 06:00 Lorazepam (Ativan) 0.5 mg Q6H PRN IV ANXIETY Last administered on 06/15/18 21:15; Admin Dose 0.5 MG; Start 06/12/18 at 15:00 Hydralazine HCl (Apresoline) 10 mg Q6H PRN IV ELEVATED BLOOD PRESSURE Last administered on 06/16/18 04:35; Admin Dose 10 MG; Start 06/12/18 at 15:00 Nitroglycerin (Nitroglycerin (Sl Tab) 0.4 Mg) 1 tab Q5M PRN SL ANGINA; Start 06/12/18 at 15:00 Folic Acid (Folic Acid) 1 mg DAILY PO Last administered on 06/16/18 09:37; Admin Dose 1 MG; Start 06/13/18 at 09:00 Latanoprost (Xalatan) 1 drop QHS BOTH EYES Last administered on 06/15/18 21:13; Admin Dose 1 DROP; Start 06/12/18 at 21:00 Magnesium Oxide (Mag-Ox 400) 800 mg BID PO Last administered on 06/16/18 09:37; Admin Dose 800 MG; Start 06/12/18 at 21:00 Mycophenolate Mofetil (Cellcept) 250 mg BID PO Last administered on 06/16/18 09:37; Admin Dose 250 MG; Start 06/12/18 at 21:00 Prednisone (Prednisone) 5 mg DAILY PO Last administered on 06/16/18 09:37; Admin Dose 5 MG; Start 06/13/18 at 09:00 Tacrolimus (Prograf) 1 mg Q12 PO Last administered on 06/16/18 09:37; Admin Dose 1 MG; Start 06/12/18 at 21:00 Atorvastatin Calcium (Lipitor) 10 mg QHS PO Last administered on 06/15/18 21:15; Admin Dose 10 MG; Start 06/12/18 at 21:00 Diagnostic Test (Pha) (Accu-Chek) 1 ea 02 XX Last administered on 06/16/18 01:41; Admin Dose 1 EA; Start 06/13/18 at 02:00 Phenol (Cepastat Lozenge) 1 lozenge Q1H PRN MT COUGH Last administered on 06/15/18 02:22; Admin Dose 1 LOZENGE; Start 06/12/18 at 16:00 Miscellaneous Information 1 ea NOTE XX ; Start 06/12/18 at 16:30 Glucose (Glutose) 15 gm Q15M PRN PO DECREASED GLUCOSE; Start 06/12/18 at 16:30 Glucose (Glutose) 22.5 gm Q15M PRN PO DECREASED GLUCOSE; Start 06/12/18 at 16:30 Dextrose (D50w Syringe) 25 ml Q15M PRN IV DECREASED GLUCOSE; Start 06/12/18 at 16:30 Dextrose (D50w Syringe) 50 ml Q15M PRN IV DECREASED GLUCOSE; Start 06/12/18 at 16:30 Glucagon (Glucagen) 1 mg Q15M PRN IM DECREASED GLUCOSE; Start 06/12/18 at 16:30 Glucose (Glutose) 15 gm Q15M PRN BUCCAL DECREASED GLUCOSE; Start 06/12/18 at 16:30 Dorzolamide/ Timolol (Cosopt Pf Eye Drops) 1 drop BID BOTH EYES Last a dministered on 06/16/18 09:36; Admin Dose 1 DROP; Start 06/12/18 at 22:10 Albuterol/ Ipratropium (Duoneb) 3 ml Q4H RESP THERAPY HHN Last administered on 06/16/18 09:59; Admin Dose 3 ML; Start 06/13/18 at 13:00 Albuterol/ Ipratropium (Duoneb) 3 ml Q2H RESP THERAPY PRN HHN WHEEZING; Start 06/13/18 at 13:00 Guaifenesin (Robitussin Liquid Cup) 200 mg Q4H PRN PO COUGH Last administered on 06/14/18 09:32; Admin Dose 200 MG; Start 06/13/18 at 13:00 Insulin Aspart (Novolog Insulin Pen) (Adult SC Insulin - Mild Algorithm)... AC MEALS AND BEDTIME SC Last administered on 06/16/18 08:21; Admin Dose 2 UNIT; Start 06/13/18 at 17:25 Guaifenesin/ Dextromethorphan (Robitussin Dm Liquid Cup) 10 ml Q4H PRN PO COUGH Last administered on 06/15/18 02:22; Admin Dose 10 ML; Start 06/14/18 at 10:00 Zolpidem Tartrate (Ambien) 2.5 mg HS PRN PO INSOMNIA Last administered on 06/14/18 21:42; Admin Dose 2.5 MG; Start 06/14/18 at 10:00 Cefepime HCl 50 ml @ 100 mls/hr Q12 IVPB Last administered on 06/16/18 09:45; Admin Dose 100 MLS/HR; Start 06/14/18 at 12:00 Insulin Glargine (Lantus) 10 units DAILY@0800 SC Last administered on 06/16/18 08:22; Admin Dose 10 UNITS; Start 06/15/18 at 08:00 Clonidine (Catapres) 0.1 mg Q6H PRN PO ELEVATED BLOOD PRESSURE; Start 06/15/18 at 20:30 Losartan Potassium (Cozaar) 50 mg DAILY PO Last administered on 06/16/18 09:38; Admin Dose 50 MG; Start 06/15/18 at 20:30 Allergies: Coded Allergies: No Known Allergy (Unverified , 06/12/18) Social History Smoking Status: Never smoker Exam/Review of Systems Exam Vitals Vital Signs Date Temp Pulse Resp B/P (MAP) Pulse Ox O2 O2 Flow FiO2 Time Delivery Rate 06/16/18 97.6 78 20 146/78 95 11:08 (100) 06/16/18 Nasal 4.0 09:59 Cannula 06/13/18 16:00 Intake and Output 06/15/18 06/15/18 06/16/18 1515:00 23:00 07:00 IntakeIntake Total 500 ml 250 ml BalanceBalance 500 ml 250 ml Exam HE ENT exam; supple neck, no JVD. No lymphadenopathy. Midline trachea. No thyromegaly. Pharynx is clear. Patient does have multiple carious teeth. No neck masses. Chest exam; diminished breath sounds bilaterally with very mild expiratory wheezing bilaterally. S1-S2 audible, no murmurs. Regular rhythm. Abdomen exam; soft, nontender. No organomegaly. Bowel sounds audible. There is a well-healed right lower quadrant scar. Extremity exam; no peripheral edema clubbing. [employer] exam; no focal deficit. Results Result Diagram: 06/16/18 0718 06/16/18 0718 Results 24hrs Laboratory Tests Test 06/15/18 15:02 06/15/18 16:03 06/15/18 17:16 06/15/18 20:53 Sodium Level 123 L Potassium Level 4.1 Chloride Level 89 L Carbon Dioxide Level 25 Anion Gap 9 Blood Urea Nitrogen 33 H Creatinine 0.82 Est Glomerular > 60 Filtrat Rate mL/min Glucose Level 162 Calcium Level 8.1 L Bedside Glucose 187 164 187 Test 06/15/18 21:16 06/16/18 01:25 06/16/18 07:18 06/16/18 08:14 Sodium Level 122 L 125 L Potassium Level 4.2 4.1 Chloride Level 90 L 90 L Carbon Dioxide Level 24 24 Anion Gap 8 11 Blood Urea Nitrogen 33 H 35 H Creatinine 0.87 0.97 Est Glomerular > 60 57 L Filtrat Rate mL/min Glucose Level 173 179 Osmolality 266 L Calcium Level 8.3 L 8.3 L Bedside Glucose 186 196 White Blood Count 8.4 Red Blood Count 3.24 L Hemoglobin 10.1 L Hematocrit 29.0 L Mean Corpuscular 89.5 Volume Mean Corpuscular 31.2 Hemoglobin Mean Corpuscular 34.8 Hemoglobin Concent Red Cell 11.9 Distribution Width Platelet Count 126 #L Mean Platelet Volume 11.1 H Immature 1.800 H Granulocytes % Neutrophils % 89.9 H Lymphocytes % 2.5 L Monocytes % 5.7 Eosinophils % 0.0 Basophils % 0.1 Nucleated Red Blood 0.0 Cells % Immature 0.150 H Granulocytes # Neutrophils # 7.5 Lymphocytes # 0.2 L Monocytes # 0.5 Eosinophils # 0.0 Basophils # 0.0 Nucleated Red Blood 0.0 Cells # Test 06/16/18 10:13 Urine Osmolality 622 Medications Medication Current Medications IV Flush (NS 3 ml) 3 ml PER PROTOCOL IV ; Start 06/12/18 at 15:00 Ondansetron HCl (Zofran Inj) 4 mg Q6H PRN IV NAUSEA/VOMITING Last administered on 06/15/18 15:41; Admin Dose 4 MG; Start 06/12/18 at 15:00 Acetaminophen (Tylenol Tab) 650 mg Q6H PRN PO .PAIN 1-3 OR TEMP Last administered on 06/14/18 12:32; Admin Dose 650 MG; Start 06/12/18 at 15:00 Acetaminophen/ Hydrocodone Bitart ([place] (5/325)) 1 tab Q6H PRN PO .MOD PAIN 4- 6; Start 06/12/18 at 15:00 Morphine Sulfate (morphine) 2 mg Q4H PRN IV .SEVERE PAIN 7-10; Start 06/12/18 at 15:00 Docusate Sodium (Colace) 100 mg Q12H PRN PO .CONSTIPATION; Start 06/12/18 at 15:00 Magnesium Hydroxide (Milk Of Mag) 30 ml DAILY PRN PO .CONSTIPATION; Start 06/12/18 at 15:00 Pantoprazole (Protonix Tab) 40 mg DAILY@06 PO Last administered on 06/16/18 05:12; Admin Dose 40 MG; Start 06/13/18 at 06:00 Lorazepam (Ativan) 0.5 mg Q6H PRN IV ANXIETY Last administered on 06/15/18 21:15; Admin Dose 0.5 MG; Start 06/12/18 at 15:00 Hydralazine HCl (Apresoline) 10 mg Q6H PRN IV ELEVATED BLOOD PRESSURE Last administered on 06/16/18 04:35; Admin Dose 10 MG; Start 06/12/18 at 15:00 Nitroglycerin (Nitroglycerin (Sl Tab) 0.4 Mg) 1 tab Q5M PRN SL ANGINA; Start 06/12/18 at 15:00 Folic Acid (Folic Acid) 1 mg DAILY PO Last administered on 06/16/18 09:37; Admin Dose 1 MG; Start 06/13/18 at 09:00 Latanoprost (Xalatan) 1 drop QHS BOTH EYES Last administered on 06/15/18 21:13; Admin Dose 1 DROP; Start 06/12/18 at 21:00 Magnesium Oxide (Mag-Ox 400) 800 mg BID PO Last administered on 06/16/18 09:37; Admin Dose 800 MG; Start 06/12/18 at 21:00 Mycophenolate Mofetil (Cellcept) 250 mg BID PO Last administered on 06/16/18 09:37; Admin Dose 250 MG; Start 06/12/18 at 21:00 Prednisone (Prednisone) 5 mg DAILY PO Last administered on 06/16/18 09:37; Admin Dose 5 MG; Start 06/13/18 at 09:00 Tacrolimus (Prograf) 1 mg Q12 PO Last administered on 06/16/18 09:37; Admin Dose 1 MG; Start 06/12/18 at 21:00 Atorvastatin Calcium (Lipitor) 10 mg QHS PO Last administered on 06/15/18 21:15; Admin Dose 10 MG; Start 06/12/18 at 21:00 Diagnostic Test (Pha) (Accu-Chek) 1 ea 02 XX Last administered on 06/16/18 01:41; Admin Dose 1 EA; Start 06/13/18 at 02:00 Phenol (Cepastat Lozenge) 1 lozenge Q1H PRN MT COUGH Last administered on 06/15/18 02:22; Admin Dose 1 LOZENGE; Start 06/12/18 at 16:00 Miscellaneous Information 1 ea NOTE XX ; Start 06/12/18 at 16:30 Glucose (Glutose) 15 gm Q15M PRN PO DECREASED GLUCOSE; Start 06/12/18 at 16:30 Glucose (Glutose) 22.5 gm Q15M PRN PO DECREASED GLUCOSE; Start 06/12/18 at 16:30 Dextrose (D50w Syringe) 25 ml Q15M PRN IV DECREASED GLUCOSE; Start 06/12/18 at 16:30 Dextrose (D50w Syringe) 50 ml Q15M PRN IV DECREASED GLUCOSE; Start 06/12/18 at 16:30 Glucagon (Glucagen) 1 mg Q15M PRN IM DECREASED GLUCOSE; Start 06/12/18 at 16:30 Glucose (Glutose) 15 gm Q15M PRN BUCCAL DECREASED GLUCOSE; Start 06/12/18 at 16:30 Dorzolamide/ Timolol (Cosopt Pf Eye Drops) 1 drop BID BOTH EYES Last administered on 06/16/18 09:36; Admin Dose 1 DROP; Start 06/12/18 at 22:10 Albuterol/ Ipratropium (Duoneb) 3 ml Q4H RESP THERAPY HHN Last administered on 06/16/18 09:59; Admin Dose 3 ML; Start 06/13/18 at 13:00 Albuterol/ Ipratropium (Duoneb) 3 ml Q2H RESP THERAPY PRN HHN WHEEZING; Start 06/13/18 at 13:00 Guaifenesin (Robitussin Liquid Cup) 200 mg Q4H PRN PO COUGH Last administered on 06/14/18 09:32; Admin Dose 200 MG; Start 06/13/18 at 13:00 Insulin Aspart (Novolog Insulin Pen) (Adult SC Insulin - Mild Algorithm)... AC MEALS AND BEDTIME SC Last administered on 06/16/18 08:21; Admin Dose 2 UNIT; Start 06/13/18 at 17:25 Guaifenesin/ Dextromethorphan (Robitussin Dm Liquid Cup) 10 ml Q4H PRN PO COUGH Last administered on 06/15/18 02:22; Admin Dose 10 ML; Start 06/14/18 at 10:00 Zolpidem Tartrate (Ambien) 2.5 mg HS PRN PO INSOMNIA Last administered on 21:42; Admin Dose 2.5 MG; Start 06/14/18 at 10:00 Cefepime HCl 50 ml @ 100 mls/hr Q12 IVPB Last administered on 06/16/18 09:45; Admin Dose 100 MLS/HR; Start 06/14/18 at 12:00 Insulin Glargine (Lantus) 10 units DAILY@0800 SC Last administered on 06/16/18 08:22; Admin Dose 10 UNITS; Start 06/15/18 at 08:00 Clonidine (Catapres) 0.1 mg Q6H PRN PO ELEVATED BLOOD PRESSURE; Start 06/15/18 at 20:30 Losartan Potassium (Cozaar) 50 mg DAILY PO Last administered on 06/16/18 09:38; Admin Dose 50 MG; Start 06/15/18 at 20:30 GATITO JANG Jun 16, 2018 11:50
[2018-06-16] MEDS: LEVOFLOXACIN 500MG/D5W (PMX) 100 ML IVPB SCH (12:18)
[2018-06-16] MEDS ORDERED: HYDROCORTISONE 2.5% 20 GM CR TOP PRN (13:30)
--- NOTE | 2018-06-16 13:39 | CONS ---
Assessment/Plan Assessment/Plan Hospital Course (Demo Recall) 1. Hyponatremia. She has a low urine sodium which would indicate a depletional hyponatremia. Her serum sodium today is up to 125. I am going to start her on a low rate IV saline drip. She can eat salt and she can have her fluid restriction liberalized to 1200 cc a day. 2. Kidney transplant status. Her renal function is stable. 3. Acute bronchitis. She is much improved from yesterday and is having less cough and is breathing better. Consultation Date/Type/Reason Admit Date/Time Jun 12, 2018 at 10:59 Initial Consult Date 06/16/18 Type of Consult Nephrology Date/Time of Note DATE: 06/16/18 TIME: 13:36 24 HR Interval Summary Free Text/Dictation The patient is feeling better now. Her son is in the room with her. She has less wheezing, less cough and she is feeling hungry. Constitutional: improved Exam/Review of Systems Exam Vitals Vital Signs Date Temp Pulse Resp B/P (MAP) Pulse Ox O2 O2 Flow FiO2 Time Delivery Rate 06/16/18 85 20 97 Nasal 4.0 13:05 Cannula 06/16/18 97.6 146/78 11:08 (100) 06/13/18 28 16:00 Intake and Output 06/15/18 06/15/18 06/16/18 1414:59 22:59 06:59 IntakeIntake Total 500 ml 250 ml BalanceBalance 500 ml 250 ml Constitutional: alert, oriented, frail Respiratory: wheezing Cardiovascular: regular rate and rhythm Gastrointestinal: soft Musculoskeletal: nl extremities to inspection Results Result Diagram: 06/16/18 0718 06/16/18 1254 Results 24hrs Laboratory Tests Test 06/15/18 15:02 06/15/18 16:03 06/15/18 17:16 06/15/18 20:53 Sodium Level 123 L Potassium Level 4.1 Chloride Level 89 L Carbon Dioxide Level 25 Anion Gap 9 Blood Urea Nitrogen 33 H Creatinine 0.82 Est Glomerular > 60 Filtrat Rate mL/min Glucose Level 162 Calcium Level 8.1 L Bedside Glucose 187 164 187 Test 06/15/18 21:16 06/16/18 01:25 06/16/18 07:18 06/16/18 08:14 Sodium Level 122 L 125 L Potassium Level 4.2 4.1 Chloride Level 90 L 90 L Carbon Dioxide Level 24 24 Anion Gap 8 11 Blood Urea Nitrogen 33 H 35 H Creatinine 0.87 0.97 Est Glomerular > 60 57 L Filtrat Rate mL/min Glucose Level 173 179 Osmolality 266 L Calcium Level 8.3 L 8.3 L Bedside Glucose 186 196 White Blood Count 8.4 Red Blood Count 3.24 L Hemoglobin 10.1 L Hematocrit 29.0 L Mean Corpuscular 89.5 Volume Mean Corpuscular 31.2 Hemoglobin Mean Corpuscular 34.8 Hemoglobin Concent Red Cell 11.9 Distribution Width Platelet Count 126 #L Mean Platelet Volume 11.1 H Immature 1.800 H Granulocytes % Neutrophils % 89.9 H Lymphocytes % 2.5 L Monocytes % 5.7 Eosinophils % 0.0 Basophils % 0.1 Nucleated Red Blood 0.0 Cells % Immature 0.150 H Granulocytes # Neutrophils # 7.5 Lymphocytes # 0.2 L Monocytes # 0.5 Eosinophils # 0.0 Basophils # 0.0 Nucleated Red Blood 0.0 Cells # Test 06/16/18 10:13 06/16/18 11:51 06/16/18 12:54 Urine Osmolality 622 Urine Random Sodium 20 L Bedside Glucose 179 Sodium Level 125 L Potassium Level 4.3 Chloride Level 90 L Carbon Dioxide Level 25 Anion Gap 10 Blood Urea Nitrogen 36 H Creatinine 1.01 H Est Glomerular 55 L Filtrat Rate mL/min Glucose Level 181 Calcium Level 8.1 L Medications Medication Current Medications IV Flush (NS 3 ml) 3 ml PER PROTOCOL IV ; Start 06/12/18 at 15:00 Ondansetron HCl (Zofran Inj) 4 mg Q6H PRN IV NAUSEA/VOMITING Last administered on 06/15/18at 15:41; Admin Dose 4 MG; Start 06/12/18 at 15:00 Acetaminophen (Tylenol Tab) 650 mg Q6H PRN PO .PAIN 1-3 OR TEMP Last administered on 06/14/18at 12:32; Admin Dose 650 MG; Start 06/12/18 at 15:00 Acetaminophen/ Hydrocodone Bitart ([place] (5/325)) 1 tab Q6H PRN PO .MOD PAIN 4- 6; Start 06/12/18 at 15:00 Morphine Sulfate (morphine) 2 mg Q4H PRN IV .SEVERE PAIN 7-10; Start 06/12/18 at 15:00 Docusate Sodium (Colace) 100 mg Q12H PRN PO .CONSTIPATION; Start 06/12/18 at 15:00 Magnesium Hydroxide (Milk Of Mag) 30 ml DAILY PRN PO .CONSTIPATION; Start 06/12/18 at 15:00 Pantoprazole (Protonix Tab) 40 mg DAILY@06 PO Last administered on 06/16/18 05:12; Admin Dose 40 MG; Start 06/13/18 at 06:00 Lorazepam (Ativan) 0.5 mg Q6H PRN IV ANXIETY Last administered on 06/15/18 21:15; Admin Dose 0.5 MG; Start 06/12/18 at 15:00 Hydralazine HCl (Apresoline) 10 mg Q6H PRN IV ELEVATED BLOOD PRESSURE Last administered on 06/16/18 04:35; Admin Dose 10 MG; Start 06/12/18 at 15:00 Nitroglycerin (Nitroglycerin (Sl Tab) 0.4 Mg) 1 tab Q5M PRN SL ANGINA; Start 06/12/18 at 15:00 Folic Acid (Folic Acid) 1 mg DAILY PO Last administered on 06/16/18 09:37; Admin Dose 1 MG; Start 06/13/18 at 09:00 Latanoprost (Xalatan) 1 drop QHS BOTH EYES Last administered on 06/15/18 21:13; Admin Dose 1 DROP; Start 06/12/18 at 21:00 Magnesium Oxide (Mag-Ox 400) 800 mg BID PO Last administered on 06/16/18 09: 37; Admin Dose 800 MG; Start 06/12/18 at 21:00 Mycophenolate Mofetil (Cellcept) 250 mg BID PO Last administered on 06/16/18 09:37; Admin Dose 250 MG; Start 06/12/18 at 21:00 Prednisone (Prednisone) 5 mg DAILY PO Last administered on 06/16/18 09:37; Admin Dose 5 MG; Start 06/13/18 at 09:00 Tacrolimus (Prograf) 1 mg Q12 PO Last administered on 06/16/18 09:37; Admin Dose 1 MG; Start 06/12/18 at 21:00 Atorvastatin Calcium (Lipitor) 10 mg QHS PO Last administered on 06/15/18 21:15; Admin Dose 10 MG; Start 06/12/18 at 21:00 Diagnostic Test (Pha) (Accu-Chek) 1 ea 02 XX Last administered on 06/16/18 01:41; Admin Dose 1 EA; Start 06/13/18 at 02:00 Phenol (Cepastat Lozenge) 1 lozenge Q1H PRN MT COUGH Last administered on 06/15/18 02:22; Admin Dose 1 LOZENGE; Start 06/12/18 at 16:00 Miscellaneous Information 1 ea NOTE XX ; Start 06/12/18 at 16:30 Glucose (Glutose) 15 gm Q15M PRN PO DECREASED GLUCOSE; Start 06/12/18 at 16:30 Glucose (Glutose) 22.5 gm Q15M PRN PO DECREASED GLUCOSE; Start 06/12/18 at 16:30 Dextrose (D50w Syringe) 25 ml Q15M PRN IV DECREASED GLUCOSE; Start 06/12/18 at 16:30 Dextrose (D50w Syringe) 50 ml Q15M PRN IV DECREASED GLUCOSE; Start 06/12/18 at 16:30 Glucagon (Glucagen) 1 mg Q15M PRN IM DECREASED GLUCOSE; Start 06/12/18 at 16:30 Glucose (Glutose) 15 gm Q15M PRN BUCCAL DECREASED GLUCOSE; Start 06/12/18 at 16:30 Dorzolamide/ Timolol (Cosopt Pf Eye Drops) 1 drop BID BOTH EYES Last administered on 06/16/18 09:36; Admin Dose 1 DROP; Start 06/12/18 at 22:10 Albuterol/ Ipratropium (Duoneb) 3 ml Q4H RESP THERAPY HHN Last administered on 06/16/18 13:05; Admin Dose 3 ML; Start 06/13/18 at 13:00 Albuterol/ Ipratropium (Duoneb) 3 ml Q2H RESP THERAPY PRN HHN WHEEZING; Start 06/13/18 at 13:00 Guaifenesin (Robitussin Liquid Cup) 200 mg Q4H PRN PO COUGH Last administered on 06/14/18 09:32; Admin Dose 200 MG; Start 06/13/18 at 13:00 Insulin Aspart (Novolog Insulin Pen) (Adult SC Insulin - Mild Algorithm)... AC MEALS AND BEDTIME SC Last administered on 06/16/18 12:07; Admin Dose 1 UNIT; Start 06/13/18 at 17:25 Guaifenesin/ Dextromethorphan (Robitussin Dm Liquid Cup) 10 ml Q4H PRN PO COUGH Last administered on 06/15/18at 02:22; Admin Dose 10 ML; Start 06/14/18 at 10:00 Zolpidem Tartrate (Ambien) 2.5 mg HS PRN PO INSOMNIA Last administered on 06/14/18at 21:42; Admin Dose 2.5 MG; Start 06/14/18 at 10:00 Cefepime HCl 50 ml @ 100 mls/hr Q12 IVPB Last administered on 06/16/18at 09:45; Admin Dose 100 MLS/HR; Start 06/14/18 at 12:00 Insulin Glargine (Lantus) 10 units DAILY@0800 SC Last administered on 06/16/18at 08:22; Admin Dose 10 UNITS; Start 06/15/18 at 08:00 Clonidine (Catapres) 0.1 mg Q6H PRN PO ELEVATED BLOOD PRESSURE; Start 06/15/18 at 20:30 Losartan Potassium (Cozaar) 50 mg DAILY PO Last administered on 06/16/18at 09:38; Admin Dose 50 MG; Start 06/15/18 at 20:30 Methylprednisolone Sodium Succinate (Solu-Medrol) 40 mg Q8 IV ; Start 06/16/18 at 14:00 Levofloxacin/ Dextrose 100 ml @ 100 mls/hr Q24H IVPB Last administered on 06/16/18at 12:18; Admin Dose 100 MLS/HR; Start 06/16/18 at 12:00 Hydrocortisone (Hydrocortisone 2.5% Cr) 1 applic BID PRN TOP itching; Start 06/16/18 at 13:30; Status UNV Sodium Chloride 1,000 ml @ 75 mls/hr [id number] IV ; Start 06/16/18 at 13:30; Status UNV LESLEY AMBROSE MD Jun 16, 2018 13:39
[2018-06-16] MEDS: METHYLPREDNISOLONE 40 MG INJ IV SCH ×2 (13:45→21:45)
[2018-06-16] MEDS: DIPHENHYDRAMINE 25 MG CAP PO PRN (14:29)
[2018-06-16] MEDS: SOD CHLORIDE 0.9% 1,000 ML IV SCH (14:29)
--- NOTE | 2018-06-16 17:30 | PN ---
Date/Time of Note Date/Time of Note DATE: 06/16/18 TIME: 17:27 Assessment/Plan VTE Prophylaxis Risk score (from Ns)>0 risk: 6 SCD applied (from [facility] [place] Yes Pharmacological prophylaxis: NA/contraindicated Pharm contraindication: low risk/ambulating Lines/Catheters IV C[facility]ter Type (from [facility] Peripheral IV Urinary Cath still in place: No Assessment/Plan Assessment/Plan 67-year-old woman coming in with cough and shortness of breath for 1 week with signs of possible atypical pneumonia and possible obstructive lung disease, with a prior history of diabetes, hypertension, kidney transplant 3 years ago. 1. Shortness of breath and cough- secondary to upper respiratory infection/atypical pneumonia and obstructive lung disease with wheezing occurring. - On very high dose solumedrol without improvement. Pulmonary consulted, will drop dose. - Abx switched to levofloxacin. - Continue antitussive medicines as well (guaifenesin, Robitussin-DM, Cepastat), Low dose IV fluids. 2. Hyponatremia - Na dropping quickly from 140 on admission, brittany at 123. Now slowly increasing. - Patient euvolemic, compulsively drinking water without eating. 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 - Nephrology consulted. - q12h BMPs 2. Diabetes. -Sugar stable, A1c was 6.1 -Monitor, continue sliding scale 3. Hypertension. Blood pressure high normal range -Monitor, continue hydralazine as needed p.r.n. 4. History of kidney transplant 3 years ago-no apparent issues - continue her home CellCept and Prograf medications. - If there are any further abnormalities, consider renal consult. 5. Gastrointestinal prophylaxis proton pump inhibitor and deep venous thrombosis prophylaxis- SCDs, given the mild thrombocytopenia. Result Diagram: 06/16/18 0718 06/16/18 1254 Subjective 24 Hr Interval Summary Free Text/Dictation No acute overnight events. Continues to have wheezing. Compliant with free water restriction. Exam/Review of Systems Exam Vitals Vital Signs Date Temp Pulse Resp B/P (MAP) Pulse Ox O2 O2 Flow FiO2 Time Delivery Rate 06/16/18 79 16:18 06/16/18 97.8 20 167/82 98 15:28 (110) 06/16/18 Nasal 2.0 14:30 Cannula 06/13/18 28 16:00 Intake and Output 4/29/19 4/29/19 4/30/19 1515:00 23:00 07:00 IntakeIntake Total 500 ml 250 ml BalanceBalance 500 ml 250 ml Exam GENERAL: Sitting up in bed, responds to instruction with son translating. HEENT: Pupils equal, round, reactive to light. Extraocular muscles intact. NECK: Supple, no thyromegaly. LUNGS: Positive expiratory wheezes bilaterally with prolonged expiratory phase. CARDIOVASCULAR: S1, S2 heard. No rubs or gallops. ABDOMEN: Soft, nontender, nondistended. Normal bowel sounds. No rebound or guarding. MUSCULOSKELETAL: No lower extremity edema bilaterally. Results Results 24hrs Laboratory Tests Test 06/15/18 20:53 06/15/18 21:16 06/16/18 01:25 06/16/18 07:18 Bedside Glucose 187 186 Sodium Level 122 L 125 L Potassium Level 4.2 4.1 Chloride Level 90 L 90 L Carbon Dioxide Level 24 24 Anion Gap 8 11 Blood Urea Nitrogen 33 H 35 H Creatinine 0.87 0.97 Est Glomerular > 60 57 L Filtrat Rate mL/min Glucose Level 173 179 Osmolality 266 L Calcium Level 8.3 L 8.3 L White Blood Count 8.4 Red Blood Count 3.24 L Hemoglobin 10.1 L Hematocrit 29.0 L Mean Corpuscular 89.5 Volume Mean Corpuscular 31.2 Hemoglobin Mean Corpuscular 34.8 Hemoglobin Concent Red Cell 11.9 Distribution Width Platelet Count 126 #L Mean Platelet Volume 11.1 H Immature 1.800 H Granulocytes % Neutrophils % 89.9 H Lymphocytes % 2.5 L Monocytes % 5.7 Eosinophils % 0.0 Basophils % 0.1 Nucleated Red Blood 0.0 Cells % Immature 0.150 H Granulocytes # Neutrophils # 7.5 Lymphocytes # 0.2 L Monocytes # 0.5 Eosinophils # 0.0 Basophils # 0.0 Nucleated Red Blood 0.0 Cells # Test 06/16/18 08:14 06/16/18 10:13 06/16/18 11:51 06/16/18 12:54 Bedside Glucose 196 179 Urine Osmolality 622 Urine Random Sodium 20 L Sodium Level 125 L Potassium Level 4.3 Chloride Level 90 L Carbon Dioxide Level 25 Anion Gap 10 Blood Urea Nitrogen 36 H Creatinine 1.01 H Est Glomerular 55 L Filtrat Rate mL/min Glucose Level 181 Calcium Level 8.1 L Medications Medication Current Medications IV Flush (NS 3 ml) 3 ml PER PROTOCOL IV ; Start 06/12/18 at 15:00 Ondansetron HCl (Zofran Inj) 4 mg Q6H PRN IV NAUSEA/VOMITING Last administered on 06/15/18 15:41; Admin Dose 4 MG; Start 06/12/18 at 15:00 Acetaminophen (Tylenol Tab) 650 mg Q6H PRN PO .PAIN 1-3 OR TEMP Last administered on 06/14/18 12:32; Admin Dose 650 MG; Start 06/12/18 at 15:00 Acetaminophen/ Hydrocodone Bitart ([place] (5/325)) 1 tab Q6H PRN PO .MOD PAIN 4- 6; Start 06/12/18 at 15:00 Morphine Sulfate (morphine) 2 mg Q4H PRN IV .SEVERE PAIN 7-10; Start 06/12/18 at 15:00 Docusate Sodium (Colace) 100 mg Q12H PRN PO .CONSTIPATION; Start 06/12/18 at 15:00 Magnesium Hydroxide (Milk Of Mag) 30 ml DAILY PRN PO .CONSTIPATION; Start 06/12/18 at 15:00 Pantoprazole (Protonix Tab) 40 mg DAILY@06 PO Last administered on 06/16/18 05:12; Admin Dose 40 MG; Start 06/13/18 at 06:00 Lorazepam (Ativan) 0.5 mg Q6H PRN IV ANXIETY Last administered on 06/15/18 21:15; Admin Dose 0.5 MG; Start 06/12/18 at 15:00 Hydralazine HCl (Apresoline) 10 mg Q6H PRN IV ELEVATED BLOOD PRESSURE Last administered on 06/16/18 16:55; Admin Dose 10 MG; Start 06/12/18 at 15:00 Nitroglycerin (Nitroglycerin (Sl Tab) 0.4 Mg) 1 tab Q5M PRN SL ANGINA; Start 06/12/18 at 15:00 Folic Acid (Folic Acid) 1 mg DAILY PO Last administered on 06/16/18 09:37; Admin Dose 1 MG; Start 06/13/18 at 09:00 Latanoprost (Xalatan) 1 drop QHS BOTH EYES Last administered on 4/29/19at 21:13; Admin Dose 1 DROP; Start 06/12/18 at 21:00 Magnesium Oxide (Mag-Ox 400) 800 mg BID PO Last administered on 06/16/18 09:37; Admin Dose 800 MG; Start 06/12/18 at 21:00 Mycophenolate Mofetil (Cellcept) 250 mg BID PO Last administered on 06/16/18 09:37; Admin Dose 250 MG; Start 06/12/18 at 21:00 Prednisone (Prednisone) 5 mg DAILY PO Last administered on 06/16/18 09:37; Admin Dose 5 MG; Start 06/13/18 at 09:00 Tacrolimus (Prograf) 1 mg Q12 PO Last administered on 06/16/18 09:37; Admin Dose 1 MG; Start 06/12/18 at 21:00 Atorvastatin Calcium (Lipitor) 10 mg QHS PO Last administered on 06/15/18 21:15; Admin Dose 10 MG; Start 06/12/18 at 21:00 Diagnostic Test (Pha) (Accu-Chek) 1 ea 02 XX Last administered on 06/16/18at 01:41; Admin Dose 1 EA; Start 06/13/18 at 02:00 Phenol (Cepastat Lozenge) 1 lozenge Q1H PRN MT COUGH Last administered on 06/15/18 02:22; Admin Dose 1 LOZENGE; Start 06/12/18 at 16:00 Miscellaneous Information 1 ea NOTE XX ; Start 06/12/18 at 16:30 Glucose (Glutose) 15 gm Q15M PRN PO DECREASED GLUCOSE; Start 06/12/18 at 16:30 Glucose (Glutose) 22.5 gm Q15M PRN PO DECREASED GLUCOSE; Start 06/12/18 at 16:30 Dextrose (D50w Syringe) 25 ml Q15M PRN IV DECREASED GLUCOSE; Start 06/12/18 at 16:30 Dextrose (D50w Syringe) 50 ml Q15M PRN IV DECREASED GLUCOSE; Start 06/12/18 at 16:30 Glucagon (Glucagen) 1 mg Q15M PRN IM DECREASED GLUCOSE; Start 06/12/18 at 16:30 Glucose (Glutose) 15 gm Q15M PRN BUCCAL DECREASED GLUCOSE; Start 06/12/18 at 16:30 Dorzolamide/ Timolol (Cosopt Pf Eye Drops) 1 drop BID BOTH EYES Last administered on 06/16/18 09:36; Admin Dose 1 DROP; Start 06/12/18 at 22:10 Albuterol/ Ipratropium (Duoneb) 3 ml Q4H RESP THERAPY HHN Last administered on 06/16/18 13:05; Admin Dose 3 ML; Start 06/13/18 at 13:00 Albuterol/ Ipratropium (Duoneb) 3 ml Q2H RESP THERAPY PRN HHN WHEEZING; Start 06/13/18 at 13:00 Guaifenesin (Robitussin Liquid Cup) 200 mg Q4H PRN PO COUGH Last administered on 06/14/18 09:32; Admin Dose 200 MG; Start 06/13/18 at 13:00 Insulin Aspart (Novolog Insulin Pen) (Adult SC Insulin - Mild Algorithm)... AC MEALS AND BEDTIME SC Last administered on 06/16/18 12:07; Admin Dose 1 UNIT; Start 06/13/18 at 17:25 Guaifenesin/ Dextromethorphan (Robitussin Dm Liquid Cup) 10 ml Q4H PRN PO COUGH Last administered on 06/15/18 02:22; Admin Dose 10 ML; Start 06/14/18 at 10:00 Zolpidem Tartrate (Ambien) 2.5 mg HS PRN PO INSOMNIA Last administered on 05/19 21:42; Admin Dose 2.5 MG; Start 06/14/18 at 10:00 Cefepime HCl 50 ml @ 100 mls/hr Q12 IVPB Last administered on 06/16/18 09:45; Admin Dose 100 MLS/HR; Start 06/14/18 at 12:00 Insulin Glargine (Lantus) 10 units DAILY@0800 SC Last administered on 06/16/18 08:22; Admin Dose 10 UNITS; Start 06/15/18 at 08:00 Clonidine (Catapres) 0.1 mg Q6H PRN PO ELEVATED BLOOD PRESSURE; Start 06/15/18 at 20:30 Losartan Potassium (Cozaar) 50 mg DAILY PO Last administered on 06/16/18 09:38; Admin Dose 50 MG; Start 06/15/18 at 20:30 Methylprednisolone Sodium Succinate (Solu-Medrol) 40 mg Q8 IV Last administered on 06/16/18 13:45; Admin Dose 40 MG; Start 06/16/18 at 14:00 Levofloxacin/ Dextrose 100 ml @ 100 mls/hr Q24H IVPB Last administered on 06/16/18 12:18; Admin Dose 100 MLS/HR; Start 06/16/18 at 12:00 Hydrocortisone (Hydrocortisone 2.5% Cr) 1 applic BID PRN TOP itching; Start 06/16/18 at 13:30 Sodium Chloride 1,000 ml @ 75 mls/hr [id number] IV Last administered on 06/16/18 14:29; Admin Dose 75 MLS/HR; Start 06/16/18 at 13:30 Diphenhydramine HCl (Benadryl) 25 mg Q6H PRN PO ITCHING Last administered on 06/16/18 14:29; Admin Dose 25 MG; Start 06/16/18 at 14:30 CARLOZ PETERSON MD Jun 16, 2018 17:30
[2018-06-16] MEDS: LATANOPROST 0.005% 2.5 ML OPH BOTH EYES SCH (20:49)
[2018-06-16] MEDS: ATORVASTATIN 10 MG TAB PO SCH (20:49)
[2018-06-16] MEDS: ZOLPIDEM 5 MG TAB PO PRN (21:46)
[2018-06-16] MEDS: SALINE 0.65% 45 ML NAS SPRAY NASAL PRN (21:48)
[2018-06-17] VITALS (9 sets, daily range): BP systolic 152–171; BP diastolic 72–96; PULSE 78–98; RESP 20–22
[2018-06-17] MEDS: ACCU-CHEK XX SCH (01:15)
[2018-06-17] MEDS: ALBUTEROL/IPRATROPIUM (NEB) 3 ML AMP HHN SCH ×6 (01:33→20:37)
[2018-06-17] MEDS: SOD CHLORIDE 0.9% 1,000 ML IV SCH (02:42)
[2018-06-17] MEDS: METHYLPREDNISOLONE 40 MG INJ IV SCH ×3 (05:00→21:45)
[2018-06-17] MEDS: PANTOPRAZOLE (EC) 40 MG TAB PO SCH (05:00)
[2018-06-17] MEDS: DORZOLAMIDE/TIMOLOL/PF 0.2 ML DROPERETTE BOTH EYES SCH ×2 (08:18→20:46)
[2018-06-17] MEDS: predniSONE 5 MG TAB PO SCH (08:18)
[2018-06-17] MEDS: MYCOPHENOLATE 250 MG CAP PO SCH ×2 (08:19→20:45)
[2018-06-17] MEDS: TACROLIMUS 1 MG CAP PO SCH ×2 (08:19→20:46)
[2018-06-17] MEDS: MAGNESIUM OXIDE 400 MG TAB PO SCH ×2 (08:19→20:45)
[2018-06-17] MEDS: FOLIC ACID 1 MG TAB PO SCH (08:19)
[2018-06-17] MEDS: CEFEPIME 2GM/50 ML (PMX) 50 ML IVPB SCH ×2 (08:20→20:46)
[2018-06-17] MEDS: LOSARTAN 50 MG TAB PO SCH (08:20)
[2018-06-17] MEDS: Insulin NOVOLOG SS MILD Algorithm (SS with meals and bedtime) SC SCH ×4 (08:25→21:52)
[2018-06-17] MEDS: INSULIN GLARGINE [LANTus] (100 UNITS/ML) SYG SC SCH (08:31)
--- NOTE | 2018-06-17 11:04 | CONS ---
Assessment/Plan Assessment/Plan Hospital Course (Demo Recall) 1. Hyponatremia. She has a low urine sodium which would indicate a depletional hyponatremia; however, she has a high urine osm which would be indicative of high antidiuretic hormone. Her serum sodium today is 124 which is lower than yesterday. I am going to give her 1 dose of tolvaptan and I will DC the IV saline and discontinue her fluid restriction. I will check a serum sodium later today. 2. Kidney transplant status. Her renal function is stable. 3. Acute bronchitis. She is much improved from and is having less cough and is breathing better. Consultation Date/Type/Reason Admit Date/Time Jun 12, 2018 at 10:59 Initial Consult Date 06/16/18 Type of Consult Nephrology Date/Time of Note DATE: 06/17/18 TIME: 10:55 24 HR Interval Summary Free Text/Dictation This patient is awake and alert. She says that she feels dry. She has been receiving normal saline IV overnight. Her serum sodium is still low at 124. Exam/Review of Systems Exam Vitals Vital Signs Date Temp Pulse Resp B/P (MAP) Pulse Ox O2 O2 Flow FiO2 Time Delivery Rate 06/17/18 82 18 96 Nasal 21 08:55 Cannula 06/17/18 97.4 154/87 07:24 (109) 06/17/18 1.0 01:34 Intake and Output 06/16/18 06/16/18 06/17/18 1515:00 23:00 07:00 IntakeIntake Total 550 ml 1200 ml BalanceBalance 550 ml 1200 ml Constitutional: alert, oriented, frail Respiratory: diminished breath sounds, wheezing Cardiovascular: regular rate and rhythm Gastrointestinal: soft, non-tender Musculoskeletal: nl extremities to inspection Results Result Diagram: 06/17/18 0611 06/17/18 0611 Results 24hrs Laboratory Tests Test 06/16/18 11:51 06/16/18 12:54 06/16/18 17:30 06/16/18 20:37 Bedside Glucose 179 214 210 Sodium Level 125 L Potassium Level 4.3 Chloride Level 90 L Carbon Dioxide Level 25 Anion Gap 10 Blood Urea Nitrogen 36 H Creatinine 1.01 H Est Glomerular 55 L Filtrat Rate mL/min Glucose Level 181 Calcium Level 8.1 L Test 06/17/18 01:13 06/17/18 06:11 06/17/18 08:05 Bedside Glucose 191 175 White Blood Count 6.6 # Red Blood Count 3.04 L Hemoglobin 9.5 L Hematocrit 27.0 L Mean Corpuscular 88.8 Volume Mean Corpuscular 31.3 Hemoglobin Mean Corpuscular 35.2 Hemoglobin Concent Red Cell 11.9 Distribution Width Platelet Count 112 L Mean Platelet Volume 11.3 H Immature 1.200 H Granulocytes % Neutrophils % 86.0 H Lymphocytes % 3.0 L Monocytes % 9.8 Eosinophils % 0.0 Basophils % 0.0 Nucleated Red Blood 0.0 Cells % Immature 0.080 H Granulocytes # Neutrophils # 5.6 Lymphocytes # 0.2 L Monocytes # 0.6 Eosinophils # 0.0 Basophils # 0.0 Nucleated Red Blood 0.0 Cells # Sodium Level 124 L Potassium Level 4.1 Chloride Level 92 L Carbon Dioxide Level 24 Anion Gap 8 Blood Urea Nitrogen 34 H Creatinine 0.95 Est Glomerular 58 L Filtrat Rate mL/min Glucose Level 165 Calcium Level 8.1 L Medications Medication Current Medications IV Flush (NS 3 ml) 3 ml PER PROTOCOL IV ; Start 06/12/18 at 15:00 Ondansetron HCl (Zofran Inj) 4 mg Q6H PRN IV NAUSEA/VOMITING Last administered on 06/15/18at 15:41; Admin Dose 4 MG; Start 06/12/18 at 15:00 Acetaminophen (Tylenol Tab) 650 mg Q6H PRN PO .PAIN 1-3 OR TEMP Last administered on 06/14/18at 12:32; Admin Dose 650 MG; Start 06/12/18 at 15:00 Acetaminophen/ Hydrocodone Bitart ([place] (5/325)) 1 tab Q6H PRN PO .MOD PAIN 4-6; Start 06/12/18 at 15:00 Morphine Sulfate (morphine) 2 mg Q4H PRN IV .SEVERE PAIN 7-10; Start 06/12/18 at 15:00 Docusate Sodium (Colace) 100 mg Q12H PRN PO .CONSTIPATION; Start 06/12/18 at 15:00 Magnesium Hydroxide (Milk Of Mag) 30 ml DAILY PRN PO .CONSTIPATION; Start 06/12/18 at 15:00 Pantoprazole (Protonix Tab) 40 mg DAILY@06 PO Last administered on 06/17/18at 05:00; Admin Dose 40 MG; Start 06/13/18 at 06:00 Lorazepam (Ativan) 0.5 mg Q6H PRN IV ANXIETY Last administered on 06/15/18 21:15; Admin Dose 0.5 MG; Start 06/12/18 at 15:00 Hydralazine HCl (Apresoline) 10 mg Q6H PRN IV ELEVATED BLOOD PRESSURE Last administered on 06/16/18 21:46; Admin Dose 10 MG; Start 06/12/18 at 15:00 Nitroglycerin (Nitroglycerin (Sl Tab) 0.4 Mg) 1 tab Q5M PRN SL ANGINA; Start 06/12/18 at 15:00 Folic Acid (Folic Acid) 1 mg DAILY PO Last administered on 06/17/18 08:19; Admin Dose 1 MG; Start 06/13/18 at 09:00 Latanoprost (Xalatan) 1 drop QHS BOTH EYES Last administered on 06/16/18 20:49; Admin Dose 1 DROP; Start 06/12/18 at 21:00 Magnesium Oxide (Mag-Ox 400) 800 mg BID PO Last administered on 06/17/18 08:19; Admin Dose 800 MG; Start 06/12/18 at 21:00 Mycophenolate Mofetil (Cellcept) 250 mg BID PO Last administered on 06/17/18 08:19; Admin Dose 250 MG; Start 06/12/18 at 21:00 Prednisone (Prednisone) 5 mg DAILY PO Last administered on 06/17/18 08:18; Admin Dose 5 MG; Start 06/13/18 at 09:00 Tacrolimus (Prograf) 1 mg Q12 PO Last administered on 06/17/18 08:19; Admin Dose 1 MG; Start 06/12/18 at 21:00 Atorvastatin Calcium (Lipitor) 10 mg QHS PO Last administered on 06/16/18 20:49; Admin Dose 10 MG; Start 06/12/18 at 21:00 Diagnostic Test (Pha) (Accu-Chek) 1 ea 02 XX Last administered on 06/17/18 01:15; Admin Dose 1 EA; Start 06/13/18 at 02:00 Phenol (Cepastat Lozenge) 1 lozenge Q1H PRN MT COUGH Last administered on 06/15/18 02:22; Admin Dose 1 LOZENGE; Start 06/12/18 at 16:00 Miscellaneous Information 1 ea NOTE XX ; Start 06/12/18 at 16:30 Glucose (Glutose) 15 gm Q15M PRN PO DECREASED GLUCOSE; Start 06/12/18 at 16:30 Glucose (Glutose) 22.5 gm Q15M PRN PO DECREASED GLUCOSE; Start 06/12/18 at 16:30 Dextrose (D50w Syringe) 25 ml Q15M PRN IV DECREASED GLUCOSE; Start 06/12/18 at 16:30 Dextrose (D50w Syringe) 50 ml Q15M PRN IV DECREASED GLUCOSE; Start 06/12/18 at 16:30 Glucagon (Glucagen) 1 mg Q15M PRN IM DECREASED GLUCOSE; Start 06/12/18 at 16:30 Glucose (Glutose) 15 gm Q15M PRN BUCCAL DECREASED GLUCOSE; Start 06/12/18 at 16:30 Dorzolamide/ Timolol (Cosopt Pf Eye Drops) 1 drop BID BOTH EYES Last administered on 06/17/18at 08:18; Admin Dose 1 DROP; Start 06/12/18 at 22:10 Albuterol/ Ipratropium (Duoneb) 3 ml Q4H RESP THERAPY HHN Last administered on 06/17/18at 08:47; Admin Dose 3 ML; Start 06/13/18 at 13:00 Albuterol/ Ipratropium (Duoneb) 3 ml Q2H RESP THERAPY PRN HHN WHEEZING; Start 06/13/18 at 13:00 Guaifenesin (Robitussin Liquid Cup) 200 mg Q4H PRN PO COUGH Last administered on 06/14/18at 09:32; Admin Dose 200 MG; Start 06/13/18 at 13:00 Insulin Aspart (Novolog Insulin Pen) (Adult SC Insulin - Mild Algorithm)... AC MEALS AND BEDTIME SC Last administered on 06/17/18at 08:25; Admin Dose 1 UNIT; Start 06/13/18 at 17:25 Guaifenesin/ Dextromethorphan (Robitussin Dm Liquid Cup) 10 ml Q4H PRN PO COUGH Last administered on 06/15/18at 02:22; Admin Dose 10 ML; Start 06/14/18 at 10:00 Zolpidem Tartrate (Ambien) 2.5 mg HS PRN PO INSOMNIA Last administered on 06/16/18 21:46; Admin Dose 2.5 MG; Start 06/14/18 at 10:00 Cefepime HCl 50 ml @ 100 mls/hr Q12 IVPB Last administered on 06/17/18 08:20; Admin Dose 100 MLS/HR; Start 06/14/18 at 12:00 Insulin Glargine (Lantus) 10 units DAILY@0800 SC Last administered on 06/17/18 08:31; Admin Dose 10 UNITS; Start 06/15/18 at 08:00 Clonidine (Catapres) 0.1 mg Q6H PRN PO ELEVATED BLOOD PRESSURE Last adminis tered on 06/16/18 20:49; Admin Dose 0.1 MG; Start 06/15/18 at 20:30 Losartan Potassium (Cozaar) 50 mg DAILY PO Last administered on 06/17/18 08:20; Admin Dose 50 MG; Start 06/15/18 at 20:30 Methylprednisolone Sodium Succinate (Solu-Medrol) 40 mg Q8 IV Last administered on 06/17/18 05:00; Admin Dose 40 MG; Start 06/16/18 at 14:00 Levofloxacin/ Dextrose 100 ml @ 100 mls/hr Q24H IVPB Last administered on 06/16/18 12:18; Admin Dose 100 MLS/HR; Start 06/16/18 at 12:00 Hydrocortisone (Hydrocortisone 2.5% Cr) 1 applic BID PRN TOP itching; Start 06/16/18 at 13:30 Sodium Chloride 1,000 ml @ 75 mls/hr [id number] IV Last administered on 06/17/18 02:42; Admin Dose 75 MLS/HR; Start 06/16/18 at 13:30 Diphenhydramine HCl (Benadryl) 25 mg Q6H PRN PO ITCHING Last administered on 06/16/18 14:29; Admin Dose 25 MG; Start 06/16/18 at 14:30 Sodium Chloride ([place]) 1 spray Q2H PRN NASAL NASAL CONGESTION Last administered on 06/16/18 21:48; Admin Dose 1 SPRAY; Start 06/16/18 at 19:00 Tolvaptan (Samsca) 15 mg ONCE ONCE PO ; Start 06/17/18 at 11:00; Stop 06/17/18 at 11:01; Status UNV LESLEY AMBROSE MD June 17, 2018 11:04
[2018-06-17] MEDS: SALINE 0.65% 45 ML NAS SPRAY NASAL PRN ×2 (11:07→17:21)
[2018-06-17] MEDS ORDERED: TOLVAPTAN 15 MG TABLET PO ONE (12:00)
[2018-06-17] MEDS: LEVOFLOXACIN 500MG/D5W (PMX) 100 ML IVPB SCH (13:10)
--- NOTE | 2018-06-17 15:52 | PN ---
Date/Time of Note Date/Time of Note DATE: 06/17/18 TIME: 15:48 Assessment/Plan VTE Prophylaxis Risk score (from Ns)>0 risk: 6 SCD applied (from Ns): Yes Pharmacological prophylaxis: LMWH Lines/Catheters IV Catheter Type (from [facility]): Peripheral IV Urinary Cath still in place: No Assessment/Plan Assessment/Plan 67-year-old woman coming in with cough and shortness of breath for 1 week with signs of possible atypical pneumonia and possible obstructive lung disease, with a prior history of diabetes, hypertension, kidney transplant 3 years ago. 1. Shortness of breath and cough- secondary to upper respiratory infection/atypical pneumonia and obstructive lung disease with wheezing o ccurring. - On very high dose solumedrol without improvement. Pulmonary consulted, will drop dose. - Abx switched to levofloxacin. - Continue antitussive medicines as well (guaifenesin, Robitussin-DM, Cepastat), Low dose IV fluids. 2. Hyponatremia - Na dropping quickly from 140 on admission, brittany at 123. Now slowly increasing. - Patient euvolemic, compulsively drinking water without eating. 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 - Nephrology consulted. - Patient got tolvaptan today. - q12h BMPs 2. Diabetes. -Sugar stable, A1c was 6.1 -Monitor, continue sliding scale 3. Hypertension. Blood pressure high normal range -Monitor, continue hydralazine as needed p.r.n. 4. History of kidney transplant 3 years ago-no apparent issues - continue her home CellCept and Prograf medications. - If there are any further abnormalities, consider renal consult. 5. Gastrointestinal prophylaxis proton pump inhibitor and deep venous thrombosis prophylaxis- lovenox Result Diagram: 06/17/18 0611 06/17/18 0611 Subjective 24 Hr Interval Summary Free Text/Dictation No acute overnight events. Complains of stuffy nose. Wheeziness significantly improved, patient now on room air. Reports still too fatigued to try walking. Exam/Review of Systems Exam Vitals Vital Signs Date Temp Pulse Resp B/P (MAP) Pulse Ox O2 O2 Flow FiO2 Time Delivery Rate 06/17/18 97.7 91 22 171/84 94 Room Air 15:09 (113) 06/17/18 21 12:05 06/17/18 1.0 01:34 Intake and Output 06/16/18 06/16/18 06/17/18 1515:00 23:00 07:00 IntakeIntake Total 550 ml 1200 ml BalanceBalance 550 ml 1200 ml Exam GENERAL: Sitting up in bed, responds to instruction with son translating. HEENT: Pupils equal, round, reactive to light. Extraocular muscles intact. NECK: Supple, no thyromegaly. LUNGS: Significant improvement in wheezing compared to yesterday. CARDIOVASCULAR: S1, S2 heard. No rubs or gallops. ABDOMEN: Soft, nontender, nondistended. Normal bowel sounds. No rebound or guarding. MUSCULOSKELETAL: No lower extremity edema bilaterally. Results Results 24hrs Laboratory Tests Test 06/16/18 17:30 06/16/18 20:37 06/17/18 01:13 06/17/18 06:11 Bedside Glucose 214 210 191 White Blood Count 6.6 # Red Blood Count 3.04 L Hemoglobin 9.5 L Hematocrit 27.0 L Mean Corpuscular 88.8 Volume Mean Corpuscular 31.3 Hemoglobin Mean Corpuscular 35.2 Hemoglobin Concent Red Cell Distribution 11.9 Width Platelet Count 112 L Mean Platelet Volume 11.3 H Immature Granulocytes 1.200 H % Neutrophils % 86.0 H Lymphocytes % 3.0 L Monocytes % 9.8 Eosinophils % 0.0 Basophils % 0.0 Nucleated Red Blood 0.0 Cells % Immature Granulocytes 0.080 H # Neutrophils # 5.6 Lymphocytes # 0.2 L Monocytes # 0.6 Eosinophils # 0.0 Basophils # 0.0 Nucleated Red Blood 0.0 Cells # Sodium Level 124 L Potassium Level 4.1 Chloride Level 92 L Carbon Dioxide Level 24 Anion Gap 8 Blood Urea Nitrogen 34 H Creatinine 0.95 Est Glomerular Filtrat 58 L Rate mL/min Glucose Level 165 Calcium Level 8.1 L Test 06/17/18 08:05 06/17/18 12:22 06/17/18 14:56 Bedside Glucose 175 163 Sodium Level 123 L Potassium Level 4.4 Chloride Level 91 L Carbon Dioxide Level 24 Anion Gap 8 Blood Urea Nitrogen 33 H Creatinine 0.91 Est Glomerular Filtrat > 60 Rate mL/min Glucose Level 207 Calcium Level 8.0 L Medications Medication Current Medications IV Flush (NS 3 ml) 3 ml PER PROTOCOL IV ; Start 06/12/18 at 15:00 Ondansetron HCl (Zofran Inj) 4 mg Q6H PRN IV NAUSEA/VOMITING Last administered on 06/15/18 15:41; Admin Dose 4 MG; Start 06/12/18 at 15:00 Acetaminophen (Tylenol Tab) 650 mg Q6H PRN PO .PAIN 1-3 OR TEMP Last administered on 06/14/18 12:32; Admin Dose 650 MG; Start 06/12/18 at 15:00 Acetaminophen/ Hydrocodone Bitart ([place] (5/325)) 1 tab Q6H PRN PO .MOD PAIN 4- 6; Start 06/12/18 at 15:00 Morphine Sulfate (morphine) 2 mg Q4H PRN IV .SEVERE PAIN 7-10; Start 06/12/18 at 15:00 Docusate Sodium (Colace) 100 mg Q12H PRN PO .CONSTIPATION; Start 06/12/18 at 15:00 Magnesium Hydroxide (Milk Of Mag) 30 ml DAILY PRN PO .CONSTIPATION; Start 06/12/18 at 15:00 Pantoprazole (Protonix Tab) 40 mg DAILY@06 PO Last administered on 06/17/18 05:00; Admin Dose 40 MG; Start 06/13/18 at 06:00 Lorazepam (Ativan) 0.5 mg Q6H PRN IV ANXIETY Last administered on 06/15/18 21:15; Admin Dose 0.5 MG; Start 06/12/18 at 15:00 Hydralazine HCl (Apresoline) 10 mg Q6H PRN IV ELEVATED BLOOD PRESSURE Last administered on 06/16/18 21:46; Admin Dose 10 MG; Start 06/12/18 at 15:00 Nitroglycerin (Nitroglycerin (Sl Tab) 0.4 Mg) 1 tab Q5M PRN SL ANGINA; Start 06/12/18 at 15:00 Folic Acid (Folic Acid) 1 mg DAILY PO Last administered on 06/17/18 08:19; Admin Dose 1 MG; Start 06/13/18 at 09:00 Latanoprost (Xalatan) 1 drop QHS BOTH EYES Last administered on 06/16/18 20:49; Admin Dose 1 DROP; Start 06/12/18 at 21:00 Magnesium Oxide (Mag-Ox 400) 800 mg BID PO Last administered on 06/17/18 08:19; Admin Dose 800 MG; Start 06/12/18 at 21:00 Mycophenolate Mofetil (Cellcept) 250 mg BID PO Last administered on 06/17/18 08:19; Admin Dose 250 MG; Start 06/12/18 at 21:00 Prednisone (Prednisone) 5 mg DAILY PO Last administered on 06/17/18 08:18; Admin Dose 5 MG; Start 06/13/18 at 09:00 Tacrolimus (Prograf) 1 mg Q12 PO Last administered on 06/17/18 08:19; Admin Dose 1 MG; Start 06/12/18 at 21:00 Atorvastatin Calcium (Lipitor) 10 mg QHS PO Last administered on 06/16/18 20:49; Admin Dose 10 MG; Start 06/12/18 at 21:00 Diagnostic Test (Pha) (Accu-Chek) 1 ea 02 XX Last administered on 06/17/18at 01:15; Admin Dose 1 EA; Start 06/13/18 at 02:00 Phenol (Cepastat Lozenge) 1 lozenge Q1H PRN MT COUGH Last administered on 06/15/18 02:22; Admin Dose 1 LOZENGE; Start 06/12/18 at 16:00 Miscellaneous Information 1 ea NOTE XX ; Start 06/12/18 at 16:30 Glucose (Glutose) 15 gm Q15M PRN PO DECREASED GLUCOSE; Start 06/12/18 at 16:30 Glucose (Glutose) 22.5 gm Q15M PRN PO DECREASED GLUCOSE; Start 06/12/18 at 16:30 Dextrose (D50w Syringe) 25 ml Q15M PRN IV DECREASED GLUCOSE; Start 06/12/18 at 16:30 Dextrose (D50w Syringe) 50 ml Q15M PRN IV DECREASED GLUCOSE; Start 06/12/18 at 16:30 Glucagon (Glucagen) 1 mg Q15M PRN IM DECREASED GLUCOSE; Start 06/12/18 at 16:30 Glucose (Glutose) 15 gm Q15M PRN BUCCAL DECREASED GLUCOSE; Start 06/12/18 at 16:30 Dorzolamide/ Timolol (Cosopt Pf Eye Drops) 1 drop BID BOTH EYES Last administered on 06/17/18 08:18; Admin Dose 1 DROP; Start 06/12/18 at 22:10 Albuterol/ Ipratropium (Duoneb) 3 ml Q4H RESP THERAPY HHN Last administered on 06/17/18 12:05; Admin Dose 3 ML; Start 06/13/18 at 13:00 Albuterol/ Ipratropium (Duoneb) 3 ml Q2H RESP THERAPY PRN HHN WHEEZING; Start 06/13/18 at 13:00 Guaifenesin (Robitussin Liquid Cup) 200 mg Q4H PRN PO COUGH Last administered on 06/14/18 09:32; Admin Dose 200 MG; Start 06/13/18 at 13:00 Insulin Aspart (Novolog Insulin Pen) (Adult SC Insulin - Mild Algorithm)... AC MEALS AND BEDTIME SC Last administered on 06/17/18 13:37; Admin Dose 1 UNIT; Start 06/13/18 at 17:25 Guaifenesin/ Dextromethorphan (Robitussin Dm Liquid Cup) 10 ml Q4H PRN PO COUGH Last administered on 06/15/18 02:22; Admin Dose 10 ML; Start 06/14/18 at 10:00 Zolpidem Tartrate (Ambien) 2.5 mg HS PRN PO INSOMNIA Last administered on 06/16/18 21:46; Admin Dose 2.5 MG; Start 06/14/18 at 10:00 Cefepime HCl 50 ml @ 100 mls/hr Q12 IVPB Last administered on 06/17/18 08:20; Admin Dose 100 MLS/HR; Start 06/14/18 at 12:00 Insulin Glargine (Lantus) 10 units DAILY@0800 SC Last administered on 06/17/18 08:31; Admin Dose 10 UNITS; Start 06/15/18 at 08:00 Clonidine (Catapres) 0.1 mg Q6H PRN PO ELEVATED BLOOD PRESSURE Last administered on 06/16/18 20:49; Admin Dose 0.1 MG; Start 06/15/18 at 20:30 Losartan Potassium (Cozaar) 50 mg DAILY PO Last administered on 06/17/18 08:20; Admin Dose 50 MG; Start 06/15/18 at 20:30 Methylprednisolone Sodium Succinate (Solu-Medrol) 40 mg Q8 IV Last administered on 06/17/18 13:10; Admin Dose 40 MG; Start 06/16/18 at 14:00 Levofloxacin/ Dextrose 100 ml @ 100 mls/hr Q24H IVPB Last administered on 06/17/18at 13:10; Admin Dose 100 MLS/HR; Start 06/16/18 at 12:00 Hydrocortisone (Hydrocortisone 2.5% Cr) 1 applic BID PRN TOP itching; Start 06/16/18 at 13:30 Diphenhydramine HCl (Benadryl) 25 mg Q6H PRN PO ITCHING Last administered on 06/16/18at 14:29; Admin Dose 25 MG; Start 06/16/18 at 14:30 Sodium Chloride (Deep Sea) 1 spray Q2H PRN NASAL NASAL CONGESTION Last administered on 06/17/18at 11:07; Admin Dose 1 SPRAY; Start 06/16/18 at 19:00 CARLOZ PETERSON MD June 17, 2018 15:52
[2018-06-17] MEDS: ENOXAPARIN 40 MG/0.4 ML SYG SC SCH (17:31)
[2018-06-17] MEDS: CEPASTAT LOZENGE MT PRN ×2 (20:45→23:43)
[2018-06-17] MEDS: GUAIFENESIN 20 MG/ML 5ML CUP PO PRN (20:45)
[2018-06-17] MEDS: ATORVASTATIN 10 MG TAB PO SCH (20:46)
[2018-06-17] MEDS: LATANOPROST 0.005% 2.5 ML OPH BOTH EYES SCH (21:45)
[2018-06-17] MEDS: hydrALAzine 20 MG INJ IV PRN (23:43)
[2018-06-18] VITALS (9 sets, daily range): BP systolic 145–166; BP diastolic 76–81; PULSE 81–107; RESP 18–20
[2018-06-18] MEDS: ALBUTEROL/IPRATROPIUM (NEB) 3 ML AMP HHN SCH ×4 (00:08→12:11)
[2018-06-18] MEDS: LORAZEPAM 2 MG INJ IV PRN (00:44)
[2018-06-18] MEDS: ACCU-CHEK XX SCH (02:00)
[2018-06-18] MEDS: METHYLPREDNISOLONE 40 MG INJ IV SCH ×2 (05:00→13:19)
[2018-06-18] MEDS: PANTOPRAZOLE (EC) 40 MG TAB PO SCH (05:00)
[2018-06-18] MEDS: GUAIFENESIN/DM 5ML CUP PO PRN (05:00)
[2018-06-18] MEDS: DIPHENHYDRAMINE 25 MG CAP PO PRN (05:00)
[2018-06-18] MEDS: Insulin NOVOLOG SS MILD Algorithm (SS with meals and bedtime) SC SCH ×2 (07:37→11:30)
[2018-06-18] MEDS: INSULIN GLARGINE [LANTus] (100 UNITS/ML) SYG SC SCH (07:43)
[2018-06-18] MEDS: MYCOPHENOLATE 250 MG CAP PO SCH (08:45)
[2018-06-18] MEDS: predniSONE 5 MG TAB PO SCH (08:45)
[2018-06-18] MEDS: FOLIC ACID 1 MG TAB PO SCH (08:45)
[2018-06-18] MEDS: MAGNESIUM OXIDE 400 MG TAB PO SCH (08:45)
[2018-06-18] MEDS: DORZOLAMIDE/TIMOLOL/PF 0.2 ML DROPERETTE BOTH EYES SCH (08:46)
[2018-06-18] MEDS: LOSARTAN 50 MG TAB PO SCH (08:46)
[2018-06-18] MEDS: TACROLIMUS 1 MG CAP PO SCH (08:46)
[2018-06-18] MEDS: ENOXAPARIN 40 MG/0.4 ML SYG SC SCH (08:52)
[2018-06-18] MEDS: CEFEPIME 2GM/50 ML (PMX) 50 ML IVPB SCH (08:55)
--- NOTE | 2018-06-18 09:54 | CONS ---
Assessment/Plan Assessment/Plan Hospital Course (Demo Recall) 1. Hyponatremia. Her serum sodium today is up to 135. She is overall much better. She received 1 dose of tolvaptan and which corrected her serum sodium in a timely manner. 2. Kidney transplant status. Her serum creatinine is slightly elevated today. I would continue to monitor her renal function. She may be a little volume depleted ; however, she is now drinking fluids ad selvin. which should help to correct any dehydration. She is still on high doses of Solu-Medrol which could also increase her BUN. 3. Acute bronchitis. She is much improved from and is having less cough and i s breathing better. Consultation Date/Type/Reason Admit Date/Time Jun 12, 2018 at 10:59 Initial Consult Date 06/16/18 Type of Consult Nephrology Date/Time of Note DATE: 06/18/18 TIME: 09:50 24 HR Interval Summary Free Text/Dictation She is awake and alert. She is feeling better. Her son is in the room with her. Her breathing is better today. Constitutional: improved Exam/Review of Systems Exam Vitals Vital Signs Date Temp Pulse Resp B/P (MAP) Pulse Ox O2 O2 Flow FiO2 Time Delivery Rate 06/18/18 101 20 94 21 08:19 06/18/18 Nasal 2.0 08:00 Cannula 06/18/18 98.2 145/76 07:40 (99) Intake and Output 06/17/18 06/17/18 06/18/18 1515:00 23:00 07:00 IntakeIntake Total 960 ml 650 ml BalanceBalance 960 ml 650 ml Constitutional: alert, oriented, frail Respiratory: diminished breath sounds Cardiovascular: regular rate and rhythm Gastrointestinal: soft, non-tender Musculoskeletal: nl extremities to inspection Results Result Diagram: 06/18/18 0602 06/18/18 0602 Results 24hrs Laboratory Tests Test 06/17/18 12:22 06/17/18 14:56 06/17/18 17:20 06/17/18 19:14 Bedside Glucose 163 200 Sodium Level 123 L 125 L Potassium Level 4.4 4.5 Chloride Level 91 L 92 L Carbon Dioxide Level 24 26 Anion Gap 8 7 Blood Urea Nitrogen 33 H 33 H Creatinine 0.91 1.07 H Est Glomerular Filtrat > 60 51 L Rate mL/min Glucose Level 207 229 H Calcium Level 8.0 L 8.3 L Test 06/17/18 21:43 06/18/18 01:51 06/18/18 06:02 06/18/18 07:36 Bedside Glucose 213 175 222 H White Blood Count 7.6 Red Blood Count 3.29 L Hemoglobin 10.4 L Hematocrit 29.5 L Mean Corpuscular Volume 89.7 Mean Corpuscular 31.6 Hemoglobin Mean Corpuscular 35.3 Hemoglobin Concent Red Cell Distribution 12.1 Width Platelet Count 127 L Mean Platelet Volume 11.6 H Immature Granulocytes % 2.200 H Neutrophils % 82.8 H Lymphocytes % 1.8 L Monocytes % 13.1 H Eosinophils % 0.0 Basophils % 0.1 Nucleated Red Blood 0.0 Cells % Immature Granulocytes # 0.170 H Neutrophils # 6.3 Lymphocytes # 0.1 L Monocytes # 1.0 H Eosinophils # 0.0 Basophils # 0.0 Nucleated Red Blood 0.0 Cells # Sodium Level 135 Potassium Level 4.3 Chloride Level 102 # Carbon Dioxide Level 28 Anion Gap 5 Blood Urea Nitrogen 33 H Creatinine 1.11 H Est Glomerular Filtrat 49 L Rate mL/min Glucose Level 242 H Calcium Level 8.6 Medications Medication Current Medications IV Flush (NS 3 ml) 3 ml PER PROTOCOL IV ; Start 06/12/18 at 15:00 Ondansetron HCl (Zofran Inj) 4 mg Q6H PRN IV NAUSEA/VOMITING Last administered on 06/15/18at 15:41; Admin Dose 4 MG; Start 06/12/18 at 15:00 Acetaminophen (Tylenol Tab) 650 mg Q6H PRN PO .PAIN 1-3 OR TEMP Last administered on 06/14/18at 12:32; Admin Dose 650 MG; Start 06/12/18 at 15:00 Acetaminophen/ Hydrocodone Bitart ([place] (5/325)) 1 tab Q6H PRN PO .MOD PAIN 4- 6; Start 06/12/18 at 15:00 Morphine Sulfate (morphine) 2 mg Q4H PRN IV .SEVERE PAIN 7-10; Start 06/12/18 at 15:00 Docusate Sodium (Colace) 100 mg Q12H PRN PO .CONSTIPATION; Start 06/12/18 at 15:00 Magnesium Hydroxide (Milk Of Mag) 30 ml DAILY PRN PO .CONSTIPATION; Start 06/12/18 at 15:00 Pantoprazole (Protonix Tab) 40 mg DAILY@06 PO Last administered on 06/18/18 05:00; Admin Dose 40 MG; Start 06/13/18 at 06:00 Lorazepam (Ativan) 0.5 mg Q6H PRN IV ANXIETY Last administered on 06/18/18 00:44; Admin Dose 0.5 MG; Start 06/12/18 at 15:00 Hydralazine HCl (Apresoline) 10 mg Q6H PRN IV ELEVATED BLOOD PRESSURE Last administered on 06/17/18 23:43; Admin Dose 10 MG; Start 06/12/18 at 15:00 Nitroglycerin (Nitroglycerin (Sl Tab) 0.4 Mg) 1 tab Q5M PRN SL ANGINA; Start 06/12/18 at 15:00 Folic Acid (Folic Acid) 1 mg DAILY PO Last administered on 06/18/18 08:45; Admin Dose 1 MG; Start 06/13/18 at 09:00 Latanoprost (Xalatan) 1 drop QHS BOTH EYES Last administered on 06/17/18 21:45; Admin Dose 1 DROP; Start 06/12/18 at 21:00 Magnesium Oxide (Mag-Ox 400) 800 mg BID PO Last administered on 06/18/18 08:45; Admin Dose 800 MG; Start 06/12/18 at 21:00 Mycophenolate Mofetil (Cellcept) 250 mg BID PO Last administered on 06/18/18 08:45; Admin Dose 250 MG; Start 06/12/18 at 21:00 Prednisone (Prednisone) 5 mg DAILY PO Last administered on 06/18/18 08:45; Admin Dose 5 MG; Start 06/13/18 at 09:00 Tacrolimus (Prograf) 1 mg Q12 PO Last administered on 06/18/18 08:46; Admin Dose 1 MG; Start 06/12/18 at 21:00 Atorvastatin Calcium (Lipitor) 10 mg QHS PO Last administered on 06/17/18 20:46; Admin Dose 10 MG; Start 06/12/18 at 21:00 Diagnostic Test (Pha) (Accu-Chek) 1 ea 02 XX Last administered on 06/17/18 01:15; Admin Dose 1 EA; Start 06/13/18 at 02:00 Phenol (Cepastat Lozenge) 1 lozenge Q1H PRN MT COUGH Last administered on 06/17/18at 23:43; Admin Dose 1 LOZENGE; Start 06/12/18 at 16:00 Miscellaneous Information 1 ea NOTE XX ; Start 06/12/18 at 16:30 Glucose (Glutose) 15 gm Q15M PRN PO DECREASED GLUCOSE; Start 06/12/18 at 16:30 Glucose (Glutose) 22.5 gm Q15M PRN PO DECREASED GLUCOSE; Start 06/12/18 at 16:30 Dextrose (D50w Syringe) 25 ml Q15M PRN IV DECREASED GLUCOSE; Start 06/12/18 at 16:30 Dextrose (D50w Syringe) 50 ml Q15M PRN IV DECREASED GLUCOSE; Start 06/12/18 at 16:30 Glucagon (Glucagen) 1 mg Q15M PRN IM DECREASED GLUCOSE; Start 06/12/18 at 16:30 Glucose (Glutose) 15 gm Q15M PRN BUCCAL DECREASED GLUCOSE; Start 06/12/18 at 16:30 Dorzolamide/ Timolol (Cosopt Pf Eye Drops) 1 drop BID BOTH EYES Last administered on 06/18/18at 08:46; Admin Dose 1 DROP; Start 06/12/18 at 22:10 Albuterol/ Ipratropium (Duoneb) 3 ml Q4H RESP THERAPY HHN Last administered on 06/18/18at 08:19; Admin Dose 3 ML; Start 06/13/18 at 13:00 Albuterol/ Ipratropium (Duoneb) 3 ml Q2H RESP THERAPY PRN HHN WHEEZING; Start 06/13/18 at 13:00 Guaifenesin (Robitussin Liquid Cup) 200 mg Q4H PRN PO COUGH Last administered on 06/17/18at 20:45; Admin Dose 200 MG; Start 06/13/18 at 13:00 Insulin Aspart (Novolog Insulin Pen) (Adult SC Insulin - Mild Algorithm)... AC MEALS AND BEDTIME SC Last administered on 06/18/18at 07:37; Admin Dose 3 UNIT; Start 06/13/18 at 17:25 Guaifenesin/ Dextromethorphan (Robitussin Dm Liquid Cup) 10 ml Q4H PRN PO COUGH Last administered on 06/18/18at 05:00; Admin Dose 10 ML; Start 06/14/18 at 10:00 Zolpidem Tartrate (Ambien) 2.5 mg HS PRN PO INSOMNIA Last administered on 06/16/18 21:46; Admin Dose 2.5 MG; Start 06/14/18 at 10:00 Cefepime HCl 50 ml @ 100 mls/hr Q12 IVPB Last administered on 06/18/18 08:55; Admin Dose 100 MLS/HR; Start 06/14/18 at 12:00 Insulin Glargine (Lantus) 10 units DAILY@0800 SC Last administered on 06/18/18 07:43; Admin Dose 10 UNITS; Start 06/15/18 at 08:00 Clonidine (Catapres) 0.1 mg Q6H PRN PO ELEVATED BLOOD PRESSURE Last admini stered on 06/16/18 20:49; Admin Dose 0.1 MG; Start 06/15/18 at 20:30 Losartan Potassium (Cozaar) 50 mg DAILY PO Last administered on 06/18/18 08:46; Admin Dose 50 MG; Start 06/15/18 at 20:30 Methylprednisolone Sodium Succinate (Solu-Medrol) 40 mg Q8 IV Last administered on 06/18/18 05:00; Admin Dose 40 MG; Start 06/16/18 at 14:00 Levofloxacin/ Dextrose 100 ml @ 100 mls/hr Q24H IVPB Last administered on 06/17/18 13:10; Admin Dose 100 MLS/HR; Start 06/16/18 at 12:00 Hydrocortisone (Hydrocortisone 2.5% Cr) 1 applic BID PRN TOP itching; Start 06/16/18 at 13:30 Diphenhydramine HCl (Benadryl) 25 mg Q6H PRN PO ITCHING Last administered on 06/18/18 05:00; Admin Dose 25 MG; Start 06/16/18 at 14:30 Sodium Chloride ([place]) 1 spray Q2H PRN NASAL NASAL CONGESTION Last administered on 06/17/18 17:21; Admin Dose 1 SPRAY; Start 06/16/18 at 19:00 Enoxaparin Sodium (Lovenox) 40 mg DAILY SC Last administered on 06/18/18 08:52; Admin Dose 40 MG; Start 5/1/19 at 16:00 LESLEY AMBROSE MD June 18, 2018 09:54
[2018-06-18] MEDS: LEVOFLOXACIN 500MG/D5W (PMX) 100 ML IVPB SCH (11:31)
[2018-06-18] MEDS ORDERED: MED4DP PO (11:35)
[2018-06-18] MEDS ORDERED: LEVO750T8 PO (11:35)
[2018-06-18] MEDS ORDERED: ALBU8.5H8 INH (11:35)
--- NOTE | 2018-06-18 11:42 | PDOCDIS ---
Discharge Instructions DIAGNOSIS Discharge Diagnosis Atypical pneumonia CONDITION [id number] Patient Condition: [id number] Fair HOME CARE INSTRUCTIONS: [id number] Diet Instructions: [id number] Regular ACTIVITY: [id number] Activity Restrictions: [id number] No Restrictions FOLLOW UP/APPOINTMENTS Follow-up Plan 1. Take all medications as prescribed, including a 5 day taper of steroids and 7 more days of antibiotics. 2. For worsening shortness of breath, return to the ED. CARLOZ PETERSON MD June 18, 2018 11:42
[2018-06-18] MEDS: SALINE 0.65% 45 ML NAS SPRAY NASAL PRN (12:34)
--- NOTE | 2018-06-18 15:43 | DS ---
Date/Time of Note Date/Time of Note DATE: 06/18/18 TIME: 15:37 Discharge Summary Admission/Discharge Info Admit Date/Time Jun 12, 2018 at 10:59 Discharge Date/Time June 18, 2018 at 14:42 Discharge Diagnosis Atypical pneumonia Patient Condition: Good Consults Dr. Liang, pulmonary medicine Dr. Faith, nephrology Procedures None Hx of Present Illness HISTORY OF PRESENT ILLNESS: A 67-year-old female with past medical history of renal transplant 3 years ago, on immunosuppressive therapy, diabetes, hypertension, who comes in after experiencing shortness of breath and cough symptoms. Symptoms have been going on for the last 5 to 6 days. Patient describes the cough as a dry cough. No fevers or chills. No apparent recent travels or sick contacts. No diarrhea or constipation. No upper or lower GI bleeding, no diarrhea, constipation. She tried a "watertight medicine" at home as well as cough trap that did not relieve her symptoms. Shortness of breath also occurs with some exertion as well, minimally. When she arrived today, she had a chest x-ray that surprisingly did not show any focal infiltrates, although there was some unchanged left upper lobe scarring noted. She was a little t achycardic when she came in, but afebrile. She did, however, receive broad- spectrum antibiotics in the ER today and now feels slightly better. PAST MEDICAL HISTORY: As above. ALLERGIES: N0 MEDICATIONS AT HOME: 1. Simvastatin 10 mg at bedtime. 2. Losartan/hydrochlorothiazide 50/12.5 one tab daily. 3. Tramadol 50 mg q.6h. p.r.n. 4. Celebrex 200 mg daily. 5. Xalatan drops both eyes at bedtime. 6. Timolol drops both eyes b.i.d. 7. Magnesium oxide p.o. b.i.d. 8. Aspart insulin sliding scale at home. 9. Lantus 0 to 5 units sliding scale at home. 10. Prednisone 5 mg daily. 11. Folic acid 1 mg daily. 12. CellCept 250 mg b.i.d. 13. Tacrolimus 1 mg q.12h. PAST SURGICAL HISTORY: Kidney transplant 3 years ago. SOCIAL HISTORY: Negative for smoking, drinking, or IV drug abuse. FAMILY HISTORY: Noncontributory. Hospital Course She was started on high dose IV steroids as well as cefepime, but continued to have hypoxia and severe wheezing not responsive to inhaled alpha-[address] Liang was consulted and switched her to levofloxacin which seemed to considerably improve her respiratory function. She will be discharged on a 7 day course of levaquin as well as a steroid taper. Hospital course complicated by severe hyponatremia, after admission she dropped from 140 to 123. 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 Tried free water restriction without much improvement. Dr. Faith was consulted and ordered a dose of tolvaptan which quickly resolved the issue. She was monitored closely for central pontine myelinolysis but developed no such symptoms. Home Meds Active Scripts Albuterol Sulfate* (Proair HFA*) 8.5 Gm Hfa.aer.ad, 2 PUFF INH Q4 PRN for WHEEZING, #1 INHALER Prov:CARLOZ PETERSON MD 06/18/18 Methylprednisolone* (Medrol* DOSE PACK) 4 Mg/Dose-Pack Tab.ds.pk, 4 MG PO . DIRECTED, #1 PACKET Prov:CARLOZ PETERSON MD 06/18/18 Levofloxacin* (Levofloxacin*) 750 Mg Tablet, 750 MG PO DAILY for 7 Days, #7 TAB Prov:CARLOZ PETERSON MD 06/18/18 Reported Medications Celecoxib* (Celebrex*) 200 Mg Capsule, 200 MG PO DAILY, CAP 06/12/18 Simvastatin* (Zocor*) 10 Mg Tablet, 10 MG PO QHS, #30 TAB 06/12/18 Mycophenolate Mofetil* (Cellcept*) 250 Mg Capsule, 1 CAP ORAL BID 06/12/18 Dorzolamide/Timolol* (Dorzolamide/Timolol*) 10 Ml Drops, 1 DROP BOTH EYES BID, #1 EA 12/31/16 Latanoprost (Xalatan) 2.5 Ml Drops, 1 DROP BOTH EYES QHS, #1 BOTTLE 12/31/16 Losartan-Hydrochlorothiazide (Losartan-HCTZ) 50-12.5 Mg Tab, 1 TAB PO DAILY, TAB 12/31/16 Insulin Glargine* (Lantus*) 100 Unit/Ml Soln, 0-5 UNIT SC HS, EA PER SLIDING SCALE 06/19/14 Insulin Aspart* (Novolog Insulin Pen*) 100 Unit/Ml Soln, 0 SC .SLIDING SCALE AC, EA 06/19/14 Tramadol HCl (Tramadol HCl) 50 Mg Tab, 50 MG PO Q6H PRN for PAIN, TAB 06/19/14 Magnesium Oxide* (Mag-Oxide*) 400 Mg Tablet, 800 MG PO BID, TAB 06/19/14 Folic Acid* (Folic Acid*) 1 Mg Tablet, 1 MG PO DAILY, TAB 06/19/14 Prednisone* (Prednisone*) 5 Mg Tab, 5 MG PO DAILY, TAB 06/19/14 Tacrolimus* (Tacrolimus*) 1 Mg Capsule, 1 MG PO Q12, CAP 06/19/14 Discontinued Reported Medications Pregabalin* (Lyrica*) 75 Mg Capsule, 75 MG PO BID, CAP 12/31/16 Follow-up Plan 1. Take all medications as prescribed, including a 5 day taper of steroids and 7 more days of antibiotics. 2. For worsening shortness of breath, return to the ED. Primary Care Provider Not On Staff Doctor Time spent on discharge: > 30 minutes Pending Labs Laboratory Tests Test 06/17/18 17:20 06/17/18 19:14 06/17/18 21:43 06/18/18 01:51 Bedside 200 213 175 Glucose mg/dL (70-220) mg/dL (70-220) mg/dL (70-220) Sodium Level 125 mmol/L (135-14 4) Potassium 4.5 Level mmol/L (3.5-5. 1) Chloride Level 92 mmol/L (97-110 ) Carbon Dioxide 26 Level mmol/L (21-31) Anion Gap 7 (5-13) Blood Urea 33 Nitrogen mg/dl (7-20) Creatinine 1.07 mg/dl (0.44-1. 00) Est Glomerular 51 Filtrat mL/min (>60) Rate mL/min Glucose Level 229 mg/dl (70-220) Calcium Level 8.3 mg/dl (8.4-10. 2) Test 06/18/18 06:02 06/18/18 07:36 06/18/18 11:26 06/18/18 14:06 White Blood 7.6 Count 10^3/ul (4.8-10 .8) Red Blood 3.29 Count 10^6/ul (4.20-5 .40) Hemoglobin 10.4 g/dl (12.0-16.0 ) Hematocrit 29.5 % (37.0-47.0) Mean 89.7 Corpuscular fl (82.0-101.0) Volume Mean 31.6 Corpuscular pg (29.0-33.0) Hemoglobin Mean 35.3 Corpuscular g/dl (32.0-37.0 Hemoglobin Conc ) ent Red Cell 12.1 Distribution % (11.5-14.5) Width Platelet Count 127 10^3/UL (140-41 5) Mean Platelet 11.6 Volume fl (7.4-10.4) Immature 2.200 Granulocytes % % (0.001-0.429) Neutrophils % 82.8 % (39.0-77.0) Lymphocytes % 1.8 % (15.0-51.0) Monocytes % 13.1 % (0.0-11.0) Eosinophils % 0.0 % (0.0-7.0) Basophils % 0.1 % (0.0-2.0) Nucleated Red 0.0 Blood Cells % /100WBC (0.0-0. 0) Immature 0.170 Granulocytes # 10^3/ul (0.0-0. 031) Neutrophils # 6.3 10^3/ul (1.6-7. 5) Lymphocytes # 0.1 10^3/ul (0.8-2. 9) Monocytes # 1.0 10^3/ul (0.3-0. 9) Eosinophils # 0.0 10^3/ul (0.0-0. 5) Basophils # 0.0 10^3/ul (0.0-0. 1) Nucleated Red 0.0 Blood Cells # 10^3/ul (0.0-0. 0) Sodium Level 135 135 mmol/L (135-144 mmol/L (135-14 ) 4) Potassium 4.3 4.6 Level mmol/L (3.5-5.1 mmol/L (3.5-5. ) 1) Chloride Level 102 102 mmol/L (97-110) mmol/L (97-110 ) Carbon Dioxide 28 27 Level mmol/L (21-31) mmol/L (21-31) Anion Gap 5 (5-13) 6 (5-13) Blood Urea 33 mg/dl (7-20) 36 Nitrogen mg/dl (7-20) Creatinine 1.11 1.10 mg/dl (0.44-1.0 mg/dl (0.44-1. 0) 00) Est Glomerular 49 mL/min (>60) 49 Filtrat mL/min (>60) Rate mL/min Glucose Level 242 201 mg/dl (70-220) mg/dl (70-220) Calcium Level 8.6 8.8 mg/dl (8.4-10.2 mg/dl (8.4-10. ) 2) Bedside 222 243 Glucose mg/dL (70-220) mg/dL (70-220) CARLOZ PETERSON MD June 18, 2018 15:43
== END 2018-06-18 14:42 | disposition home or self-care (01) | DRG 194 ==
LOC: E/R 09:17 → TEL 10:59 → SUATTDRO 14:36 → CANRESERV 16:10
PROVIDERS: ADMIT Hospitalist; ATTEND Internal Medicine
DX: J18.9 Pneumonia, unspecified organism (principal); Z94.0 Kidney transplant status; E87.1 Hypo-osmolality and hyponatremia; E22.2 Syndrome of inappropriate secretion of antidiuretic hormone; E11.9 Type 2 diabetes mellitus without complications; Z79.4 Long term (current) use of insulin; I10 Essential (primary) hypertension; D69.6 Thrombocytopenia, unspecified; J20.9 Acute bronchitis, unspecified; H40.9 Unspecified glaucoma
CPT/HCPCS: 36415; 71045; 80048; 80053; 80061; 81003; 82962; 83036; 83605; 83735; 83930; 83935; 84100; 84300; 84439; 84443; 84484; 85025; 85610; 85730; 87086; 87400; 87449; 92526; 92610; 93005; 94640; 94664; 96374; 97110; 97162; 97167; 97535; A4310; J0360; J0692; J1650; J1815; J1956; J2060; J2405; J2920; J2930; J3370; J7030; J7507; J7512; J7517